=== PATIENT | female | born 1940 | race Caucasian/White ===

== ENCOUNTER 2016-12-04 11:12 | Inpatient (IN) ==
[2016-12-04 12:03] LABS: Basophils # 0.1 K/mcL (0.0-0.2); Basophils % 0.4 %; Eosinophils # 0.5 K/mcL (0.0-0.6); Eosinophils % 3.8 %; Hematocrit 34.2 % (35.3-44.9); Hemoglobin 10.3 g/dL (11.5-15.4); Immature Granulocytes % 0.2 % (0-4); Lymphocytes # 1.4 K/mcL (0.6-4.6); Lymphocytes % 11.3 %; Mean Corpuscular HGB Conc 30.1 g/dL (31.6-35.5); Mean Corpuscular Hemoglobin 23.5 pg (28.0-33.3); Mean Corpuscular Volume 77.9 fL (83.0-100.0); Mean Platelet Volume 10.1 fL (9.4-12.4); Monocytes # 0.9 K/mcL (0.0-1.3); Monocytes % 7.1 %; Neutrophils # 9.5 K/mcL (1.6-8.9); Platelet Count 306 K/mcL (140-400); Red Blood Count 4.39 M/mcL (3.82-4.97); Red Cell Distribution Width 17.5 % (11.5-14.5); Segmented Neutrophils % 77.2 %
[2016-12-04 12:07] LABS: INR 1.3; Prothrombin Time 14.1 Seconds (9.4-12.1)
[2016-12-04 12:14] LABS: Albumin 2.7 g/dL (3.5-5.0); Albumin/Globulin Ratio 0.8 (1.1-2.2); Bilirubin,Total 0.5 mg/dL (0.2-1.2); Calcium 9.2 mg/dL (8.6-10.8); Globulin 3.5 g/dL (2.4-3.5); Total Protein 6.2 g/dL (6.0-8.3)
--- NOTE | 2016-12-04 12:23 | Emergency Department Note ---
Disposition Clinical Impression: Edema extremities, Elevated troponin CKD (chronic kidney disease) Qualifiers: Chronic kidney disease stage: stage 4 (severe) Qualified Code(s): N18.4 - Chronic kidney disease, stage 4 (severe) Hepatic cirrhosis Qualifiers: Hepatic cirrhosis type: unspecified hepatic cirrhosis Ascites presence: with ascites Qualified Code(s): K74.60 - Unspecified cirrhosis of liver Disposition: Admitted As Inpatient Condition: Critical General Adult HPI - General Chief complaint: ED Shortness of Breath/Dyspnea Stated complaint: Swelling, DEMETRIUS Time Seen by Provider: 12/04/16 11:17 Source: patient, family Limitations: no limitations Nursing Notes Reviewed: Yes Vital Signs Reviewed: Yes - History of Present Illness HPI Narrative: Mrs. Jeong, a 76 year old female, presents from home by KUB with chief complaint of dyspnea and generalized swelling. Onset 3 weeks ago and gradually progressive. Patient was previously at outside hospital 3 weeks ago where she was to be admitted however that has bilateral beds and never told he had no beds ; [facility]. Patient since followed up with her business system consultant which she was diagnosed with cirrhosis and ascites; paracentesis scheduled for next Friday. She then followed up with her cook pickled meat 2 days ago and was diagnosed to be chronic kidney disease stage IV; she was instructed to present from his office to the emergency department for admission for diuresis. She did not present to days ago and thus presents today. Patient lives with her niece who is bedside. Niece states the patient has been confused with visual hallucinations. Patient's niece also states patient was seen at outside hospital for the same problem approximately one year ago where she had a three- month stay. Patient has been noncompliant with her follow-up since. Hadoop Application Developer: Dr. Emigdio Lugo. Gastroenterology: Dr. Hernandez Biologist Aide: Dr. Roper Family physician: Dr. Juarez Patient denies any anticoagulation or antiplatelet therapy at this time. PMH: Chronic kidney disease stage IV, hypertension, diabetes type 2, CAD, vitamin D deficiency, hypercalcemia, hyperkalemia, hyper parathyroidism, hyperuricemia, hyperlipidemia, hypoalbuminemia, paroxysmal atrial fibrillation not currently anticoagulated, anxiety. Habits: Current every day [id number]-year history. Pain Scale: 0 - Related Data Home Medications Medication Instructions Recorded Confirmed Levothyroxine [Synthroid] 75 mcg PO 0630 10/26/15 12/04/16 Amiodarone [Cordarone] 200 mg PO DAILY 11/19/16 12/04/16 Digoxin [Lanoxin] 0.125 mg PO DAILY 11/19/16 12/04/16 HYDROcodone/Acet 5/325 mg [[place] 1 tab PO BID PRN 11/19/16 12/04/16 5-325 mg] Ropinirole [Requip] 1 mg PO HS 11/19/16 12/04/16 TraZODone 50 - 100 mg PO HS 11/19/16 12/04/16 Bumetanide 4 mg PO BID 12/04/16 12/04/16 Duloxetine [Cymbalta] 30 mg PO DAILY 12/04/16 12/04/16 Insulin Aspart Prot/Insuln Asp 50 unit SQ BID 12/04/16 12/04/16 [Novolog Mix 70-30 Flexpen Syrn] Previous Rx's Medication Instructions Recorded Folic Acid 1 mg PO DAILY 15 Days 10/10/15 Losartan [Cozaar] 50 mg PO DAILY tablet 10/10/15 Isosorbide MONOnitrate (24 HR) 60 mg PO DAILY tab.er.24h 10/30/15 [Imdur] Metoprolol XL (24 HR) Succ [Toprol 25 mg PO DAILY tab.er.24h 10/30/15 Xl] Aspirin 81 mg PO DAILY #30 tab.chew 12/16/16 LORazepam [Ativan] 0.5 mg PO QID PRN #30 tablet 12/16/16 Allergies Allergy/AdvReac Type Severity Reaction Status Date / Time azithromycin [From Zithromax] Allergy Rash Verified 11/19/16 17:29 furosemide [From Lasix] AdvReac Headache Verified 11/19/16 17:29 ketorolac [From Toradol] AdvReac Hypotension Verified 11/19/16 17:29 All systems ED: reviewed and negative except as stated. Constitutional: Reports: weakness. Denies: fever, chills ENT ED: Denies: congestion Cardiovascular: Reports: dyspnea on exertion, edema. Denies: chest pain, palpitations, syncope Respiratory: Reports: cough, wheezes. Denies: dyspnea, hemoptysis, stridor Gastrointestinal: Denies: abdominal pain, nausea, vomiting, diarrhea, constipation, hematemesis, melena, hematochezia Genitourinary: Denies: urgency, dysuria, frequency Musculoskeletal: Reports: back pain. Denies: neck pain Integumentary: Denies: rash Neurological: Reports: weakness. Denies: headache, numbness, paresthesias, confusion Endocrine: Reports: fatigue Hematological/Lymphatic: Denies: easy bleeding, easy bruising Past Medical History - Past Medical History Medical history: Reports: arthritis, asthma, atrial fibrillation, CHF, COPD, coronary artery disease, DVT, dementia, diabetes, GERD, hyperlipidemia, hypertension, myocardial infarction, peripheral artery disease, pulmonary embolus, renal disease, thyroid disease, TIA, venous stasis, other Surgical history: Reports: angioplasty/stent, cholecystectomy, hysterectomy, knee replacement, orthopedic, other, other Psychiatric history: Reports: anxiety, depression 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 She appears physically deconditioned. HEENT: No facial asymmetry. Head is normocephalic and atraumatic. Trachea midline. Cardiovascular: Heart regular rate and rhythm without clicks, rubs, gallops, or murmurs. No JVD. PMI nondisplaced. 3+ non-weeping painful pedal edema equal bilaterally. Respiratory: Symmetric chest rise with poor respiratory effort. Prolonged expiratory phase. Bilateral breath sounds have diffuse wheezing with scant bibasilar crackles. No rhonchi. Abdomen: Obese. Bowel sounds present normoactive x-4 quadrants. Abdomen is tense, distended, nontender. Unable to assess organomegaly secondary to patient 's body habitus. Psych: Patient's affect is appropriate for situation. Patient is oriented to self, situation, location however when asked if she lives alone she states she lives with her and quickly corrects herself stating that her . - General Limitations: no limitations General appearance: alert Course Course Narrative: Clinical concern for worsening renal function as well as worsening ascites causing dyspnea. Patient's EKG shows bradycardia. Given patient is on digoxin for rate control, will also get dig level. Patient is has history of hypothyroidism, will get TSH. Patient's troponin is slightly elevated however this is near her baseline in the setting of CKD. She is anemic however this is also her baseline. Cr is elevated above her historic baseline. Labwork otherwise unremarkable. There was question as to whether or not the patient is on a liver transplant list. Spoke with [facility] transfer center. They confirmed the patient is not on their records of having been on a liver transplant list. Spoke with the hospitalist, Dr. De La Rosa who agrees to accept the patient for acute exacerbation of CKD with generalized edema, hepatic cirrhosis with severe ascites, elevated troponin. Vital Signs Temperature 97.7 F 12/04/16 11:23 Pulse Rate 48 12/04/16 11:23 Respiratory Rate 20 12/04/16 11:23 Blood Pressure 177/72 12/04/16 11:23 O2 Sat by Pulse Oximetry 95 12/04/16 11:23 Temperature 98.2 F 12/17/16 07:39 Pulse Rate 53 12/17/16 07:39 Respiratory Rate 20 12/17/16 07:39 Blood Pressure 128/54 12/17/16 07:39 O2 Sat by Pulse Oximetry 97 12/17/16 07:39 Oxygen Delivery Oxygen Delivery Room Air Medical Decision Making - Medical Records Medical records reviewed: Yes I reviewed the patient's medical records. - Lab Data Result diagrams: 12/17/16 06:20 12/17/16 06:20 Lab Results 12/04/16 12/04/16 12/04/16 Range/Units 11:54 11:54 11:54 WBC 12.2 H (4.3-11.1) K/mcL RBC 4.39 (3.82-4.97) M/mcL Hgb 10.3 L (11.5-15.4) g/dL Hct 34.2 L (35.3-44.9) % MCV 77.9 L (83.0-100.0) fL MCH 23.5 L (28.0-33.3) pg MCHC 30.1 L (31.6-35.5) g/dL RDW 17.5 H (11.5-14.5) % Plt Count 306 (140-400) K/mcL MPV 10.1 (9.4-12.4) fL Immature Gran % 0.2 (0-4) % Seg Neutrophils % 77.2 % Lymphocytes % 11.3 % Monocytes % 7.1 % Eosinophils % 3.8 % Basophils % 0.4 % Neutrophils # 9.5 H (1.6-8.9) K/mcL Lymphocytes # 1.4 (0.6-4.6) K/mcL Monocytes # 0.9 (0.0-1.3) K/mcL Eosinophils # 0.5 (0.0-0.6) K/mcL Basophils # 0.1 (0.0-0.2) K/mcL PT (9.4-12.1) Seconds INR Sodium 139 (136-145) mEq/L Potassium 4.0 (3.5-4.5) mEq/L Chloride 103 (98-109) mEq/L Carbon Dioxide 27 (19-29) mEq/L BUN 37 H (7-20) mg/dL Creatinine 3.22 H (0.57-1.11) mg/dL Est GFR ( Amer) 17 L (> 60) Est GFR (Non-Af Amer) 14 L (> 60) BUN/Creatinine Ratio 11 (6-26) Glucose 99 (70-99) mg/dL POC Glucose (58-89) Est Mean Plasma Glucose mg/dl Hemoglobin A1c ( - 5.6) % Calculated Osmolality 297 (280-300) Calcium 9.2 (8.6-10.8) mg/dL Phosphorus (2.3-4.7) mg/dL Iron (50-170) mcg/dL % Saturation (15-50) % Transferrin (180-382) mg/dL Total Bilirubin 0.5 (0.2-1.2) mg/dL AST 26 (5-34) Units/L ALT 15 (0-55) Units/L Alkaline Phosphatase 111 (38-126) Units/L Ammonia (18-72) mcmol/L Troponin I 0.05 H* (0-0.03) ng/mL Prot Electrophor EER Serum Total Protein 6.2 (6.0-8.3) g/dL Total Protein (PEP) (6.00-8.30) g/dL Albumin 2.7 L (3.5-5.0) g/dL Albumin (PEP) (3.75-5.01) g/dL Globulin 3.5 (2.4-3.5) g/dL Albumin/Globulin Ratio 0.8 L (1.1-2.2) Vtvpn-8-Vwqhygrnc (0.19-0.46) g/dL Phbpa-4-Gttvpjcuk (0.48-1.05) g/dL Beta Globulins (0.48-1.10) g/dL Gamma Globulins (0.62-1.51) g/dL PEP Interpretation Lipase 20 (8-78) Units/L TSH 2.267 (0.350-4.840) mcIU/mL PTH Intact (8.5-72.5) pg/ml Serum Immunofix Reflex Urine Color (Yellow) Urine Clarity (Clear) Urine pH (5.0-8.0) pH Units Ur Specific [place] (1.010-1.025) Urine Protein (Neg-Trace) mg/dL Urine Glucose (UA) (Normal) mg/dL Urine Ketones (Negative) mg/dL Urine Blood (Negative) Urine Nitrite (Negative) Urine Bilirubin (Negative) Urine Urobilinogen (Normal) mg/dL Ur Leukocyte Esterase (Negative) Urine Microscopic RBC (0-3) per hpf Urine Microscopic WBC (0-3) per hpf Ur Squamous Epith Cells (None-Few) per lpf Urine Bacteria (None-Few) per hpf Hyaline Casts (None-Few) per lpf Ur Culture Indicated? (NO) Urine Creatinine mg/dL Protein/Creatinin Ratio (0-0.20) mg/mg Urine Total Protein (1-14) mg/dL Fl Pathologist Review Peritoneal Appearance (Clear) Peritoneal Volume mL Peritoneal pH (No Ref Range) pH Units Peritoneal RBC (0.000 - 0.002) M/mcL Periton Tot Nuc Cells (0-300) TNC/mcL Periton Neutrophils % Periton Band Neuts % Peritoneal Eosinophils % Peritoneal Basophils % Periton Lymphocytes % % Periton Monocytes % % Periton Other Cells % % Peritoneal Tot Protein (No Ref Range) g/dL Peritoneal Albumin (No Ref Range) g/dL Peritoneal LDH (No Ref Range) Units/L Peritoneal Glucose (No Ref Range) mg/dL Peritoneal Amylase (No Ref Range) Units/L Peritoneal Triglycerid (No Ref Range) mg/dL Digoxin 2.3 H (0.8-2.0) ng/mL IgG (768-1632) mg/dL IgA (68-408) mg/dL IgM (35-263) mg/dL MATT Screen (None Detected) Myeloperoxidase Ab (0-19) AU/mL Serine Protease 3 Ab (0-19) AU/mL Complement C3 (88-201) mg/dL Complement C4 (10-40) mg/dL Free [place] LC, Quant (0.33-1.94) mg/dL Free Lambda LC, Quant (0.57-2.63) mg/dL Free [place]/Lambda Ratio (0.26-1.65) Hepatitis A IgM Ab (Nonreactive) Hep Bs Antigen (Nonreactive) Hep B Core IgM Ab (Nonreactive) Hepatitis C Ab Screen (Nonreactive) 12/04/16 12/04/16 12/04/16 Range/Units 11:54 11:54 11:54 WBC (4.3-11.1) K/mcL RBC (3.82-4.97) M/mcL Hgb (11.5-15.4) g/dL Hct (35.3-44.9) % MCV (83.0-100.0) fL MCH (28.0-33.3) pg MCHC (31.6-35.5) g/dL RDW (11.5-14.5) % Plt Count (140-400) K/mcL MPV (9.4-12.4) fL Immature Gran % (0-4) % Seg Neutrophils % % Lymphocytes % % Monocytes % % Eosinophils % % Basophils % % Neutrophils # (1.6-8.9) K/mcL Lymphocytes # (0.6-4.6) K/mcL Monocytes # (0.0-1.3) K/mcL Eosinophils # (0.0-0.6) K/mcL Basophils # (0.0-0.2) K/mcL PT 14.1 H (9.4-12.1) Seconds INR 1.3 Sodium (136-145) mEq/L Potassium (3.5-4.5) mEq/L Chloride (98-109) mEq/L Carbon Dioxide (19-29) mEq/L BUN (7-20) mg/dL Creatinine (0.57-1.11) mg/dL Est GFR ( Amer) (> 60) Est GFR (Non-Af Amer) (> 60) BUN/Creatinine Ratio (6-26) Glucose (70-99) mg/dL POC Glucose (58-89) Est Mean Plasma Glucose 140 mg/dl Hemoglobin A1c 6.5 H ( - 5.6) % Calculated Osmolality (280-300) Calcium (8.6-10.8) mg/dL Phosphorus (2.3-4.7) mg/dL Iron (50-170) mcg/dL % Saturation (15-50) % Transferrin (180-382) mg/dL Total Bilirubin (0.2-1.2) mg/dL AST (5-34) Units/L ALT (0-55) Units/L Alkaline Phosphatase (38-126) Units/L Ammonia 30 (18-72) mcmol/L Troponin I (0-0.03) ng/mL Prot Electrophor EER Serum Total Protein (6.0-8.3) g/dL Total Protein (PEP) (6.00-8.30) g/dL Albumin (3.5-5.0) g/dL Albumin (PEP) (3.75-5.01) g/dL Globulin (2.4-3.5) g/dL Albumin/Globulin Ratio (1.1-2.2) Lzyaf-4-Flkeqpeti (0.19-0.46) g/dL Vlywu-9-Mxjotncph (0.48-1.05) g/dL Beta Globulins (0.48-1.10) g/dL Gamma Globulins (0.62-1.51) g/dL PEP Interpretation Lipase (8-78) Units/L TSH (0.350-4.840) mcIU/mL PTH Intact (8.5-72.5) pg/ml Serum Immunofix Reflex Urine Color (Yellow) Urine Clarity (Clear) Urine pH (5.0-8.0) pH Units Ur Specific [place] (1.010-1.025) Urine Protein (Neg-Trace) mg/dL Urine Glucose (UA) (Normal) mg/dL Urine Ketones (Negative) mg/dL Urine Blood (Negative) Urine Nitrite (Negative) Urine Bilirubin (Negative) Urine Urobilinogen (Normal) mg/dL Ur Leukocyte Esterase (Negative) Urine Microscopic RBC (0-3) per hpf Urine Microscopic WBC (0-3) per hpf Ur Squamous Epith Cells (None-Few) per lpf Urine Bacteria (None-Few) per hpf Hyaline Casts (None-Few) per lpf Ur Culture Indicated? (NO) Urine Creatinine mg/dL Protein/Creatinin Ratio (0-0.20) mg/mg Urine Total Protein (1-14) mg/dL Fl Pathologist Review Peritoneal Appearance (Clear) Peritoneal Volume mL Peritoneal pH (No Ref Range) pH Units Peritoneal RBC (0.000 - 0.002) M/mcL Periton Tot Nuc Cells (0-300) TNC/mcL Periton Neutrophils % Periton Band Neuts % Peritoneal Eosinophils % Peritoneal Basophils % Periton Lymphocytes % % Periton Monocytes % % Periton Other Cells % % Peritoneal Tot Protein (No Ref Range) g/dL Peritoneal Albumin (No Ref Range) g/dL Peritoneal LDH (No Ref Range) Units/L Peritoneal Glucose (No Ref Range) mg/dL Peritoneal Amylase (No Ref Range) Units/L Peritoneal Triglycerid (No Ref Range) mg/dL Digoxin (0.8-2.0) ng/mL IgG (768-1632) mg/dL IgA (68-408) mg/dL IgM (35-263) mg/dL MATT Screen (None Detected) Myeloperoxidase Ab (0-19) AU/mL Serine Protease 3 Ab (0-19) AU/mL Complement C3 (88-201) mg/dL Complement C4 (10-40) mg/dL Free [place] LC, Quant (0.33-1.94) mg/dL Free Lambda LC, Quant (0.57-2.63) mg/dL Free [place]/Lambda Ratio (0.26-1.65) Hepatitis A IgM Ab (Nonreactive) Hep Bs Antigen (Nonreactive) Hep B Core IgM Ab (Nonreactive) Hepatitis C Ab Screen (Nonreactive) 12/04/16 12/04/16 12/04/16 Range/Units 12:49 18:47 21:42 WBC (4.3-11.1) K/mcL RBC (3.82-4.97) M/mcL Hgb (11.5-15.4) g/dL Hct (35.3-44.9) % MCV (83.0-100.0) fL MCH (28.0-33.3) pg MCHC (31.6-35.5) g/dL RDW (11.5-14.5) % Plt Count (140-400) K/mcL MPV (9.4-12.4) fL Immature Gran % (0-4) % Seg Neutrophils % % Lymphocytes % % Monocytes % % Eosinophils % % Basophils % % Neutrophils # (1.6-8.9) K/mcL Lymphocytes # (0.6-4.6) K/mcL Monocytes # (0.0-1.3) K/mcL Eosinophils # (0.0-0.6) K/mcL Basophils # (0.0-0.2) K/mcL PT (9.4-12.1) Seconds INR Sodium (136-145) mEq/L Potassium (3.5-4.5) mEq/L Chloride (98-109) mEq/L Carbon Dioxide (19-29) mEq/L BUN (7-20) mg/dL Creatinine (0.57-1.11) mg/dL Est GFR ( Amer) (> 60) Est GFR (Non-Af Amer) (> 60) BUN/Creatinine Ratio (6-26) Glucose (70-99) mg/dL POC Glucose 209 H (58-89) Est Mean Plasma Glucose mg/dl Hemoglobin A1c ( - 5.6) % Calculated Osmolality (280-300) Calcium (8.6-10.8) mg/dL Phosphorus (2.3-4.7) mg/dL Iron (50-170) mcg/dL % Saturation (15-50) % Transferrin (180-382) mg/dL Total Bilirubin (0.2-1.2) mg/dL AST (5-34) Units/L ALT (0-55) Units/L Alkaline Phosphatase (38-126) Units/L Ammonia (18-72) mcmol/L Troponin I 0.04 H* (0-0.03) ng/mL Prot Electrophor EER Serum Total Protein (6.0-8.3) g/dL Total Protein (PEP) (6.00-8.30) g/dL Albumin (3.5-5.0) g/dL Albumin (PEP) (3.75-5.01) g/dL Globulin (2.4-3.5) g/dL Albumin/Globulin Ratio (1.1-2.2) Rccso-2-Gztpjeqmk (0.19-0.46) g/dL Pbgwu-3-Ixpujalvs (0.48-1.05) g/dL Beta Globulins (0.48-1.10) g/dL Gamma Globulins (0.62-1.51) g/dL PEP Interpretation Lipase (8-78) Units/L TSH (0.350-4.840) mcIU/mL PTH Intact (8.5-72.5) pg/ml Serum Immunofix Reflex Urine Color Yellow (Yellow) Urine Clarity Cloudy A (Clear) Urine pH 6.0 (5.0-8.0) pH Units Ur Specific [place] 1.012 (1.010-1.025) Urine Protein 100 H (Neg-Trace) mg/dL Urine Glucose (UA) Normal (Normal) mg/dL Urine Ketones Negative (Negative) mg/dL Urine Blood Negative (Negative) Urine Nitrite Negative (Negative) Urine Bilirubin Negative (Negative) Urine Urobilinogen Normal (Normal) mg/dL Ur Leukocyte Esterase Negative (Negative) Urine Microscopic RBC 0-3 (0-3) per hpf Urine Microscopic WBC 0-3 (0-3) per hpf Ur Squamous Epith Cells Many H (None-Few) per lpf Urine Bacteria Few (None-Few) per hpf Hyaline Casts None Seen (None-Few) per lpf Ur Culture Indicated? NO (NO) Urine Creatinine mg/dL Protein/Creatinin Ratio (0-0.20) mg/mg Urine Total Protein (1-14) mg/dL Fl Pathologist Review Peritoneal Appearance (Clear) Peritoneal Volume mL Peritoneal pH (No Ref Range) pH Units Peritoneal RBC (0.000 - 0.002) M/mcL Periton Tot Nuc Cells (0-300) TNC/mcL Periton Neutrophils % Periton Band Neuts % Peritoneal Eosinophils % Peritoneal Basophils % Periton Lymphocytes % % Periton Monocytes % % Periton Other Cells % % Peritoneal Tot Protein (No Ref Range) g/dL Peritoneal Albumin (No Ref Range) g/dL Peritoneal LDH (No Ref Range) Units/L Peritoneal Glucose (No Ref Range) mg/dL Peritoneal Amylase (No Ref Range) Units/L Peritoneal Triglycerid (No Ref Range) mg/dL Digoxin (0.8-2.0) ng/mL IgG (768-1632) mg/dL IgA (68-408) mg/dL IgM (35-263) mg/dL MATT Screen (None Detected) Myeloperoxidase Ab (0-19) AU/mL Serine Protease 3 Ab (0-19) AU/mL Complement C3 (88-201) mg/dL Complement C4 (10-40) mg/dL Free [place] LC, Quant (0.33-1.94) mg/dL Free Lambda LC, Quant (0.57-2.63) mg/dL Free [place]/Lambda Ratio (0.26-1.65) Hepatitis A IgM Ab (Nonreactive) Hep Bs Antigen (Nonreactive) Hep B Core IgM Ab (Nonreactive) Hepatitis C Ab Screen (Nonreactive) 12/04/16 12/05/16 12/05/16 Range/Units 23:11 05:49 05:49 WBC 10.8 (4.3-11.1) K/mcL RBC 4.16 (3.82-4.97) M/mcL Hgb 9.6 L (11.5-15.4) g/dL Hct 32.1 L (35.3-44.9) % MCV 77.2 L (83.0-100.0) fL MCH 23.1 L (28.0-33.3) pg MCHC 29.9 L (31.6-35.5) g/dL RDW 17.5 H (11.5-14.5) % Plt Count 327 (140-400) K/mcL MPV 11.1 (9.4-12.4) fL Immature Gran % 0.4 (0-4) % Seg Neutrophils % 73.3 % Lymphocytes % 13.4 % Monocytes % 8.2 % Eosinophils % 4.3 % Basophils % 0.4 % Neutrophils # 7.9 (1.6-8.9) K/mcL Lymphocytes # 1.4 (0.6-4.6) K/mcL Monocytes # 0.9 (0.0-1.3) K/mcL Eosinophils # 0.5 (0.0-0.6) K/mcL Basophils # 0.0 (0.0-0.2) K/mcL PT (9.4-12.1) Seconds INR Sodium 139 (136-145) mEq/L Potassium 4.5 (3.5-4.5) mEq/L Chloride 104 (98-109) mEq/L Carbon Dioxide 26 (19-29) mEq/L BUN 37 H (7-20) mg/dL Creatinine 2.97 H (0.57-1.11) mg/dL Est GFR ( Amer) 19 L (> 60) Est GFR (Non-Af Amer) 15 L (> 60) BUN/Creatinine Ratio 12 (6-26) Glucose 127 H (70-99) mg/dL POC Glucose (58-89) Est Mean Plasma Glucose mg/dl Hemoglobin A1c ( - 5.6) % Calculated Osmolality 298 (280-300) Calcium 8.8 (8.6-10.8) mg/dL Phosphorus (2.3-4.7) mg/dL Iron (50-170) mcg/dL % Saturation (15-50) % Transferrin (180-382) mg/dL Total Bilirubin (0.2-1.2) mg/dL AST (5-34) Units/L ALT (0-55) Units/L Alkaline Phosphatase (38-126) Units/L Ammonia (18-72) mcmol/L Troponin I 0.04 H* (0-0.03) ng/mL Prot Electrophor EER Serum Total Protein (6.0-8.3) g/dL Total Protein (PEP) (6.00-8.30) g/dL Albumin (3.5-5.0) g/dL Albumin (PEP) (3.75-5.01) g/dL Globulin (2.4-3.5) g/dL Albumin/Globulin Ratio (1.1-2.2) Wdfnl-6-Xpcbgjvkr (0.19-0.46) g/dL Zzunh-3-Eccgeiwfw (0.48-1.05) g/dL Beta Globulins (0.48-1.10) g/dL Gamma Globulins (0.62-1.51) g/dL PEP Interpretation Lipase (8-78) Units/L TSH (0.350-4.840) mcIU/mL PTH Intact (8.5-72.5) pg/ml Serum Immunofix Reflex Urine Color (Yellow) Urine Clarity (Clear) Urine pH (5.0-8.0) pH Units Ur Specific [place] (1.010-1.025) Urine Protein (Neg-Trace) mg/dL Urine Glucose (UA) (Normal) mg/dL Urine Ketones (Negative) mg/dL Urine Blood (Negative) Urine Nitrite (Negative) Urine Bilirubin (Negative) Urine Urobilinogen (Normal) mg/dL Ur Leukocyte Esterase (Negative) Urine Microscopic RBC (0-3) per hpf Urine Microscopic WBC (0-3) per hpf Ur Squamous Epith Cells (None-Few) per lpf Urine Bacteria (None-Few) per hpf Hyaline Casts (None-Few) per lpf Ur Culture Indicated? (NO) Urine Creatinine mg/dL Protein/Creatinin Ratio (0-0.20) mg/mg Urine Total Protein (1-14) mg/dL Fl Pathologist Review Peritoneal Appearance (Clear) Peritoneal Volume mL Peritoneal pH (No Ref Range) pH Units Peritoneal RBC (0.000 - 0.002) M/mcL Periton Tot Nuc Cells (0-300) TNC/mcL Periton Neutrophils % Periton Band Neuts % Peritoneal Eosinophils % Peritoneal Basophils % Periton Lymphocytes % % Periton Monocytes % % Periton Other Cells % % Peritoneal Tot Protein (No Ref Range) g/dL Peritoneal Albumin (No Ref Range) g/dL Peritoneal LDH (No Ref Range) Units/L Peritoneal Glucose (No Ref Range) mg/dL Peritoneal Amylase (No Ref Range) Units/L Peritoneal Triglycerid (No Ref Range) mg/dL Digoxin (0.8-2.0) ng/mL IgG (768-1632) mg/dL IgA (68-408) mg/dL IgM (35-263) mg/dL MATT Screen (None Detected) Myeloperoxidase Ab (0-19) AU/mL Serine Protease 3 Ab (0-19) AU/mL Complement C3 (88-201) mg/dL Complement C4 (10-40) mg/dL Free [place] LC, Quant (0.33-1.94) mg/dL Free Lambda LC, Quant (0.57-2.63) mg/dL Free [place]/Lambda Ratio (0.26-1.65) Hepatitis A IgM Ab (Nonreactive) Hep Bs Antigen (Nonreactive) Hep B Core IgM Ab (Nonreactive) Hepatitis C Ab Screen (Nonreactive) 12/05/16 12/05/16 12/05/16 Range/Units 07:30 11:47 12:45 WBC (4.3-11.1) K/mcL RBC (3.82-4.97) M/mcL Hgb (11.5-15.4) g/dL Hct (35.3-44.9) % MCV (83.0-100.0) fL MCH (28.0-33.3) pg MCHC (31.6-35.5) g/dL RDW (11.5-14.5) % Plt Count (140-400) K/mcL MPV (9.4-12.4) fL Immature Gran % (0-4) % Seg Neutrophils % % Lymphocytes % % Monocytes % % Eosinophils % % Basophils % % Neutrophils # (1.6-8.9) K/mcL Lymphocytes # (0.6-4.6) K/mcL Monocytes # (0.0-1.3) K/mcL Eosinophils # (0.0-0.6) K/mcL Basophils # (0.0-0.2) K/mcL PT (9.4-12.1) Seconds INR Sodium 136 (136-145) mEq/L Potassium 4.6 H (3.5-4.5) mEq/L Chloride 103 (98-109) mEq/L Carbon Dioxide 27 (19-29) mEq/L BUN 38 H (7-20) mg/dL Creatinine 3.05 H (0.57-1.11) mg/dL Est GFR ( Amer) 18 L (> 60) Est GFR (Non-Af Amer) 15 L (> 60) BUN/Creatinine Ratio 12 (6-26) Glucose 195 H (70-99) mg/dL POC Glucose 129 H 188 H (58-89) Est Mean Plasma Glucose mg/dl Hemoglobin A1c ( - 5.6) % Calculated Osmolality 296 (280-300) Calcium 8.7 (8.6-10.8) mg/dL Phosphorus 3.0 (2.3-4.7) mg/dL Iron (50-170) mcg/dL % Saturation (15-50) % Transferrin (180-382) mg/dL Total Bilirubin (0.2-1.2) mg/dL AST (5-34) Units/L ALT (0-55) Units/L Alkaline Phosphatase (38-126) Units/L Ammonia (18-72) mcmol/L Troponin I (0-0.03) ng/mL Prot Electrophor EER Serum Total Protein (6.0-8.3) g/dL Total Protein (PEP) (6.00-8.30) g/dL Albumin 2.4 L (3.5-5.0) g/dL Albumin (PEP) (3.75-5.01) g/dL Globulin (2.4-3.5) g/dL Albumin/Globulin Ratio (1.1-2.2) [id number]-9-[id number] (0.19-0.46) g/dL Wltnc-3-Wbeivaffh (0.48-1.05) g/dL Beta Globulins (0.48-1.10) g/dL Gamma Globulins (0.62-1.51) g/dL PEP Interpretation Lipase (8-78) Units/L TSH (0.350-4.840) mcIU/mL PTH Intact (8.5-72.5) pg/ml Serum Immunofix Reflex Urine Color (Yellow) Urine Clarity (Clear) Urine pH (5.0-8.0) pH Units Ur Specific [place] (1.010-1.025) Urine Protein (Neg-Trace) mg/dL Urine Glucose (UA) (Normal) mg/dL Urine Ketones (Negative) mg/dL Urine Blood (Negative) Urine Nitrite (Negative) Urine Bilirubin (Negative) Urine Urobilinogen (Normal) mg/dL Ur Leukocyte Esterase (Negative) Urine Microscopic RBC (0-3) per hpf Urine Microscopic WBC (0-3) per hpf Ur Squamous Epith Cells (None-Few) per lpf Urine Bacteria (None-Few) per hpf Hyaline Casts (None-Few) per lpf Ur Culture Indicated? (NO) Urine Creatinine mg/dL Protein/Creatinin Ratio (0-0.20) mg/mg Urine Total Protein (1-14) mg/dL Fl Pathologist Review Peritoneal Appearance (Clear) Peritoneal Volume mL Peritoneal pH (No Ref Range) pH Units Peritoneal RBC (0.000 - 0.002) M/mcL Periton Tot Nuc Cells (0-300) TNC/mcL Periton Neutrophils % Periton Band Neuts % Peritoneal Eosinophils % Peritoneal Basophils % Periton Lymphocytes % % Periton Monocytes % % Periton Other Cells % % Peritoneal Tot Protein (No Ref Range) g/dL Peritoneal Albumin (No Ref Range) g/dL Peritoneal LDH (No Ref Range) Units/L Peritoneal Glucose (No Ref Range) mg/dL Peritoneal Amylase (No Ref Range) Units/L Peritoneal Triglycerid (No Ref Range) mg/dL Digoxin (0.8-2.0) ng/mL IgG (768-1632) mg/dL IgA (68-408) mg/dL IgM (35-263) mg/dL MATT Screen (None Detected) Myeloperoxidase Ab (0-19) AU/mL Serine Protease 3 Ab (0-19) AU/mL Complement C3 (88-201) mg/dL Complement C4 (10-40) mg/dL Free [place] LC, Quant (0.33-1.94) mg/dL Free [place]ambda LC, Quant (0.57-2.63) mg/dL Free [place]/Lambda Ratio (0.26-1.65) Hepatitis A IgM Ab (Nonreactive) Hep Bs Antigen (Nonreactive) Hep B Core IgM Ab (Nonreactive) Hepatitis C Ab Screen (Nonreactive) 12/05/16 12/05/16 12/05/16 Range/Units 12:45 12:45 12:45 WBC (4.3-11.1) K/mcL RBC (3.82-4.97) M/mcL Hgb (11.5-15.4) g/dL Hct (35.3-44.9) % MCV (83.0-100.0) fL MCH (28.0-33.3) pg MCHC (31.6-35.5) g/dL RDW (11.5-14.5) % Plt Count (140-400) K/mcL MPV (9.4-12.4) fL Immature Gran % (0-4) % Seg Neutrophils % % Lymphocytes % % Monocytes % % Eosinophils % % Basophils % % Neutrophils # (1.6-8.9) K/mcL Lymphocytes # (0.6-4.6) K/mcL Monocytes # (0.0-1.3) K/mcL Eosinophils # (0.0-0.6) K/mcL Basophils # (0.0-0.2) K/mcL PT (9.4-12.1) Seconds INR Sodium (136-145) mEq/L Potassium (3.5-4.5) mEq/L Chloride (98-109) mEq/L Carbon Dioxide (19-29) mEq/L BUN (7-20) mg/dL Creatinine (0.57-1.11) mg/dL Est GFR ( Amer) (> 60) Est GFR (Non-Af Amer) (> 60) BUN/Creatinine Ratio (6-26) Glucose (70-99) mg/dL POC Glucose (58-89) Est Mean Plasma Glucose mg/dl Hemoglobin A1c ( - 5.6) % Calculated Osmolality (280-300) Calcium (8.6-10.8) mg/dL Phosphorus (2.3-4.7) mg/dL Iron (50-170) mcg/dL % Saturation (15-50) % Transferrin (180-382) mg/dL Total Bilirubin (0.2-1.2) mg/dL AST (5-34) Units/L ALT (0-55) Units/L Alkaline Phosphatase (38-126) Units/L Ammonia (18-72) mcmol/L Troponin I (0-0.03) ng/mL Prot Electrophor EER SEE NOTE Serum Total Protein (6.0-8.3) g/dL Total Protein (PEP) 6.40 (6.00-8.30) g/dL Albumin (3.5-5.0) g/dL Albumin (PEP) 3.17 L (3.75-5.01) g/dL Globulin (2.4-3.5) g/dL Albumin/Globulin Ratio (1.1-2.2) Eapdh-5-Zcmekcszb 0.47 H (0.19-0.46) g/dL Elmyu-1-Voyyhomrx 1.04 (0.48-1.05) g/dL Beta Globulins 0.77 (0.48-1.10) g/dL Gamma Globulins 0.96 (0.62-1.51) g/dL PEP Interpretation SEE NOTE Lipase (8-78) Units/L TSH (0.350-4.840) mcIU/mL PTH Intact (8.5-72.5) pg/ml Serum Immunofix Reflex CARLEE Done Urine Color (Yellow) Urine Clarity (Clear) Urine pH (5.0-8.0) pH Units Ur Specific [place] (1.010-1.025) Urine Protein (Neg-Trace) mg/dL Urine Glucose (UA) (Normal) mg/dL Urine Ketones (Negative) mg/dL Urine Blood (Negative) Urine Nitrite (Negative) Urine Bilirubin (Negative) Urine Urobilinogen (Normal) mg/dL Ur Leukocyte Esterase (Negative) Urine Microscopic RBC (0-3) per hpf Urine Microscopic WBC (0-3) per hpf Ur Squamous Epith Cells (None-Few) per lpf Urine Bacteria (None-Few) per hpf Hyaline Casts (None-Few) per lpf Ur Culture Indicated? (NO) Urine Creatinine mg/dL Protein/Creatinin Ratio (0-0.20) mg/mg Urine Total Protein (1-14) mg/dL Fl Pathologist Review Peritoneal Appearance (Clear) Peritoneal Volume mL Peritoneal pH (No Ref Range) pH Units Peritoneal RBC (0.000 - 0.002) M/mcL Periton Tot Nuc Cells (0-300) TNC/mcL Periton Neutrophils % Periton Band Neuts % Peritoneal Eosinophils % Peritoneal Basophils % Periton Lymphocytes % % Periton Monocytes % % Periton Other Cells % % Peritoneal Tot Protein (No Ref Range) g/dL Peritoneal Albumin (No Ref Range) g/dL Peritoneal LDH (No Ref Range) Units/L Peritoneal Glucose (No Ref Range) mg/dL Peritoneal Amylase (No Ref Range) Units/L Peritoneal Triglycerid (No Ref Range) mg/dL Digoxin (0.8-2.0) ng/mL IgG 947 (768-1632) mg/dL IgA 261 (68-408) mg/dL IgM 67 (35-263) mg/dL MATT Screen NONE DETECTED (None Detected) Myeloperoxidase Ab 0 (0-19) AU/mL Serine Protease 3 Ab 2 (0-19) AU/mL Complement C3 124 (88-201) mg/dL Complement C4 37 (10-40) mg/dL Free [place] LC, Quant (0.33-1.94) mg/dL Free Lambda LC, Quant (0.57-2.63) mg/dL Free [place]/Lambda Ratio (0.26-1.65) Hepatitis A IgM Ab (Nonreactive) Hep Bs Antigen (Nonreactive) Hep B Core IgM Ab (Nonreactive) Hepatitis C Ab Screen (Nonreactive) 12/05/16 12/05/16 12/05/16 Range/Units 12:45 12:45 12:45 WBC (4.3-11.1) K/mcL RBC (3.82-4.97) M/mcL Hgb (11.5-15.4) g/dL Hct (35.3-44.9) % MCV (83.0-100.0) fL MCH (28.0-33.3) pg MCHC (31.6-35.5) g/dL RDW (11.5-14.5) % Plt Count (140-400) K/mcL MPV (9.4-12.4) fL Immature Gran % (0-4) % Seg Neutrophils % % Lymphocytes % % Monocytes % % Eosinophils % % Basophils % % Neutrophils # (1.6-8.9) K/mcL Lymphocytes # (0.6-4.6) K/mcL Monocytes # (0.0-1.3) K/mcL Eosinophils # (0.0-0.6) K/mcL Basophils # (0.0-0.2) K/mcL PT (9.4-12.1) Seconds INR Sodium (136-145) mEq/L Potassium (3.5-4.5) mEq/L Chloride (98-109) mEq/L Carbon Dioxide (19-29) mEq/L BUN (7-20) mg/dL Creatinine (0.57-1.11) mg/dL Est GFR ( Amer) (> 60) Est GFR (Non-Af Amer) (> 60) BUN/Creatinine Ratio (6-26) Glucose (70-99) mg/dL POC Glucose (58-89) Est Mean Plasma Glucose mg/dl Hemoglobin A1c ( - 5.6) % Calculated Osmolality (280-300) Calcium (8.6-10.8) mg/dL Phosphorus (2.3-4.7) mg/dL Iron (50-170) mcg/dL % Saturation (15-50) % Transferrin (180-382) mg/dL Total Bilirubin (0.2-1.2) mg/dL AST (5-34) Units/L ALT (0-55) Units/L Alkaline Phosphatase (38-126) Units/L Ammonia (18-72) mcmol/L Troponin I (0-0.03) ng/mL Prot Electrophor EER Serum Total Protein (6.0-8.3) g/dL Total Protein (PEP) (6.00-8.30) g/dL Albumin (3.5-5.0) g/dL Albumin (PEP) (3.75-5.01) g/dL Globulin (2.4-3.5) g/dL Albumin/Globulin Ratio (1.1-2.2) Ipqbm-1-Gllckahjt (0.19-0.46) g/dL Zztbr-1-Rsldnyhkp (0.48-1.05) g/dL Beta Globulins (0.48-1.10) g/dL Gamma Globulins (0.62-1.51) g/dL PEP Interpretation Lipase (8-78) Units/L TSH (0.350-4.840) mcIU/mL PTH Intact 365.6 H (8.5-72.5) pg/ml Serum Immunofix Reflex Urine Color (Yellow) Urine Clarity (Clear) Urine pH (5.0-8.0) pH Units Ur Specific [place] (1.010-1.025) Urine Protein (Neg-Trace) mg/dL Urine Glucose (UA) (Normal) mg/dL Urine Ketones (Negative) mg/dL Urine Blood (Negative) Urine Nitrite (Negative) Urine Bilirubin (Negative) Urine Urobilinogen (Normal) mg/dL Ur Leukocyte Esterase (Negative) Urine Microscopic RBC (0-3) per hpf Urine Microscopic WBC (0-3) per hpf Ur Squamous Epith Cells (None-Few) per lpf Urine Bacteria (None-Few) per hpf Hyaline Casts (None-Few) per lpf Ur Culture Indicated? (NO) Urine Creatinine mg/dL Protein/Creatinin Ratio (0-0.20) mg/mg Urine Total Protein (1-14) mg/dL Fl Pathologist Review Peritoneal Appearance (Clear) Peritoneal Volume mL Peritoneal pH (No Ref Range) pH Units Peritoneal RBC (0.000 - 0.002) M/mcL Per[place] Tot Nuc Cells (0-300) TNC/mcL Periton Neutrophils % Periton Band Neuts % Peritoneal Eosinophils % Peritoneal Basophils % Periton Lymphocytes % % Periton Monocytes % % Periton Other Cells % % Peritoneal Tot Protein (No Ref Range) g/dL Peritoneal Albumin (No Ref Range) g/dL Peritoneal LDH (No Ref Range) Units/L Peritoneal Glucose (No Ref Range) mg/dL Peritoneal Amylase (No Ref Range) Units/L Peritoneal Triglycerid (No Ref Range) mg/dL Digoxin (0.8-2.0) ng/mL IgG (768-1632) mg/dL IgA (68-408) mg/dL IgM (35-263) mg/dL MATT Screen (None Detected) Myeloperoxidase Ab (0-19) AU/mL Serine Protease 3 Ab (0-19) AU/mL Complement C3 (88-201) mg/dL Complement C4 (10-40) mg/dL Free [place] LC, Quant 9.49 H (0.33-1.94) mg/dL Free [place] LC, Quant 7.86 H (0.57-2.63) mg/dL Free [place]/Lambda Ratio 1.21 (0.26-1.65) Hepatitis A IgM Ab Nonreactive (Nonreactive) Hep Bs Antigen Nonreactive (Nonreactive) Hep B Core IgM Ab Nonreactive (Nonreactive) Hepatitis C Ab Screen Nonreactive (Nonreactive) 12/05/16 12/05/16 12/05/16 Range/Units 12:45 12:45 15:47 WBC (4.3-11.1) K/mcL RBC (3.82-4.97) M/mcL Hgb (11.5-15.4) g/dL Hct (35.3-44.9) % MCV (83.0-100.0) fL MCH (28.0-33.3) pg MCHC (31.6-35.5) g/dL RDW (11.5-14.5) % Plt Count (140-400) K/mcL MPV (9.4-12.4) fL Immature Gran % (0-4) % Seg Neutrophils % % Lymphocytes % % Monocytes % % Eosinophils % % Basophils % % Neutrophils # (1.6-8.9) K/mcL Lymphocytes # (0.6-4.6) K/mcL Monocytes # (0.0-1.3) K/mcL Eosinophils # (0.0-0.6) K/mcL Basophils # (0.0-0.2) K/mcL PT (9.4-12.1) Seconds INR Sodium (136-145) mEq/L Potassium (3.5-4.5) mEq/L Chloride (98-109) mEq/L Carbon Dioxide (19-29) mEq/L BUN (7-20) mg/dL Creatinine (0.57-1.11) mg/dL Est GFR ( Amer) (> 60) Est GFR (Non-Af Amer) (> 60) BUN/Creatinine Ratio (6-26) Glucose (70-99) mg/dL POC Glucose 135 H (58-89) Est Mean Plasma Glucose mg/dl Hemoglobin A1c ( - 5.6) % Calculated Osmolality (280-300) Calcium (8.6-10.8) mg/dL Phosphorus 3.0 (2.3-4.7) mg/dL Iron 19 L (50-170) mcg/dL % Saturation 7 L (15-50) % Transferrin 193 (180-382) mg/dL Total Bilirubin (0.2-1.2) mg/dL AST (5-34) Units/L ALT (0-55) Units/L Alkaline Phosphatase (38-126) Units/L Ammonia (18-72) mcmol/L Troponin I (0-0.03) ng/mL Prot Electrophor EER Serum Total Protein (6.0-8.3) g/dL Total Protein (PEP) (6.00-8.30) g/dL Albumin (3.5-5.0) g/dL Albumin (PEP) (3.75-5.01) g/dL Globulin (2.4-3.5) g/dL Albumin/Globulin Ratio (1.1-2.2) Eddhr-9-Etwqlsmqy (0.19-0.46) g/dL Yknom-8-Uauyvfogg (0.48-1.05) g/dL Beta Globulins (0.48-1.10) g/dL Gamma Globulins (0.62-1.51) g/dL PEP Interpretation Lipase (8-78) Units/L TSH (0.350-4.840) mcIU/mL PTH Intact (8.5-72.5) pg/ml Serum Immunofix Reflex Urine Color (Yellow) Urine Clarity (Clear) Urine pH (5.0-8.0) pH Units Ur Specific [place] (1.010-1.025) Urine Protein (Neg-Trace) mg/dL Urine Glucose (UA) (Normal) mg/dL Urine Ketones (Negative) mg/dL Urine Blood (Negative) Urine Nitrite (Negative) Urine Bilirubin (Negative) Urine Urobilinogen (Normal) mg/dL Ur Leukocyte Esterase (Negative) Urine Microscopic RBC (0-3) per hpf Urine Microscopic WBC (0-3) per hpf Ur Squamous Epith Cells (None-Few) per lpf Urine Bacteria (None-Few) per hpf Hyaline Casts (None-Few) per lpf Ur Culture Indicated? (NO) Urine Creatinine mg/dL Protein/Creatinin Ratio (0-0.20) mg/mg Urine Total Protein (1-14) mg/dL Fl Pathologist Review Peritoneal Appearance (Clear) Peritoneal Volume mL Peritoneal pH (No Ref Range) pH Units Peritoneal RBC (0.000 - 0.002) M/mcL Per[place] Tot Nuc Cells (0-300) TNC/mcL Periton Neutrophils % Periton Band Neuts % Peritoneal Eosinophils % Peritoneal Basophils % Periton Lymphocytes % % Periton Monocytes % % Periton Other Cells % % Peritoneal Tot Protein (No Ref Range) g/dL Peritoneal Albumin (No Ref Range) g/dL Peritoneal LDH (No Ref Range) Units/L Peritoneal Glucose (No Ref Range) mg/dL Peritoneal Amylase (No Ref Range) Units/L Peritoneal Triglycerid (No Ref Range) mg/dL Digoxin (0.8-2.0) ng/mL IgG (768-1632) mg/dL IgA (68-408) mg/dL IgM (35-263) mg/dL MATT Screen (None Detected) Myeloperoxidase Ab (0-19) AU/mL Serine Protease 3 Ab (0-19) AU/mL Complement C3 (88-201) mg/dL Complement C4 (10-40) mg/dL Free [place] LC, Quant (0.33-1.94) mg/dL Free [place] LC, Quant (0.57-2.63) mg/dL Free [place]/Lambda Ratio (0.26-1.65) Hepatitis A IgM Ab (Nonreactive) Hep Bs Antigen (Nonreactive) Hep B Core IgM Ab (Nonreactive) Hepatitis C Ab Screen (Nonreactive) 12/05/16 12/05/16 12/05/16 Range/Units 16:30 16:30 18:00 WBC (4.3-11.1) K/mcL RBC (3.82-4.97) M/mcL Hgb (11.5-15.4) g/dL Hct (35.3-44.9) % MCV (83.0-100.0) fL MCH (28.0-33.3) pg MCHC (31.6-35.5) g/dL RDW (11.5-14.5) % Plt Count (140-400) K/mcL MPV (9.4-12.4) fL Immature Gran % (0-4) % Seg Neutrophils % % Lymphocytes % % Monocytes % % Eosinophils % % Basophils % % Neutrophils # (1.6-8.9) K/mcL Lymphocytes # (0.6-4.6) K/mcL Monocytes # (0.0-1.3) K/mcL Eosinophils # (0.0-0.6) K/mcL Basophils # (0.0-0.2) K/mcL PT (9.4-12.1) Seconds INR Sodium (136-145) mEq/L Potassium (3.5-4.5) mEq/L Chloride (98-109) mEq/L Carbon Dioxide (19-29) mEq/L BUN (7-20) mg/dL Creatinine (0.57-1.11) mg/dL Est GFR ( Amer) (> 60) Est GFR (Non-Af Amer) (> 60) BUN/Creatinine Ratio (6-26) Glucose (70-99) mg/dL POC Glucose (58-89) Est Mean Plasma Glucose mg/dl Hemoglobin A1c ( - 5.6) % Calculated Osmolality (280-300) Calcium (8.6-10.8) mg/dL Phosphorus (2.3-4.7) mg/dL Iron (50-170) mcg/dL % Saturation (15-50) % Transferrin (180-382) mg/dL Total Bilirubin (0.2-1.2) mg/dL AST (5-34) Units/L ALT (0-55) Units/L Alkaline Phosphatase (38-126) Units/L Ammonia (18-72) mcmol/L Troponin I (0-0.03) ng/mL Prot Electrophor EER Serum Total Protein (6.0-8.3) g/dL Total Protein (PEP) (6.00-8.30) g/dL Albumin (3.5-5.0) g/dL Albumin (PEP) (3.75-5.01) g/dL Globulin (2.4-3.5) g/dL Albumin/Globulin Ratio (1.1-2.2) Xioup-4-Xczjlpald (0.19-0.46) g/dL Lilyz-9-Buszcyoaa (0.48-1.05) g/dL Beta Globulins (0.48-1.10) g/dL Gamma Globulins (0.62-1.51) g/dL PEP Interpretation Lipase (8-78) Units/L TSH (0.350-4.840) mcIU/mL PTH Intact (8.5-72.5) pg/ml Serum Immunofix Reflex Urine Color (Yellow) Urine Clarity (Clear) Urine pH (5.0-8.0) pH Units Ur Specific [place] (1.010-1.025) Urine Protein (Neg-Trace) mg/dL Urine Glucose (UA) (Normal) mg/dL Urine Ketones (Negative) mg/dL Urine Blood (Negative) Urine Nitrite (Negative) Urine Bilirubin (Negative) Urine Urobilinogen (Normal) mg/dL Ur Leukocyte Esterase (Negative) Urine Microscopic RBC (0-3) per hpf Urine Microscopic WBC (0-3) per hpf Ur Squamous Epith Cells (None-Few) per lpf Urine Bacteria (None-Few) per hpf Hyaline Casts (None-Few) per lpf Ur Culture Indicated? (NO) Urine Creatinine 108 mg/dL Protein/Creatinin Ratio 1.69 H (0-0.20) mg/mg Urine Total Protein 183 H (1-14) mg/dL Fl Pathologist Review See below Peritoneal Appearance CLEAR (Clear) Peritoneal Volume 7000.0 mL Peritoneal pH 7.57 (No Ref Range) pH Units Peritoneal RBC < 0.002 (0.000 - 0.002) M/mcL Periton Tot Nuc Cells 164 (0-300) TNC/mcL Periton Neutrophils 26.0 % Periton Band Neuts 0 % Peritoneal Eosinophils 0 % Peritoneal Basophils 0 % Periton Lymphocytes % 48.0 % Periton Monocytes % 26.0 % Periton Other Cells % 0 % Peritoneal Tot Protein 2.0 (No Ref Range) g/dL Peritoneal Albumin 1.1 (No Ref Range) g/dL Peritoneal LDH 47 (No Ref Range) Units/L Peritoneal Glucose 178 (No Ref Range) mg/dL Peritoneal Amylase 5 (No Ref Range) Units/L Peritoneal Triglycerid 39 (No Ref Range) mg/dL Digoxin (0.8-2.0) ng/mL IgG (768-1632) mg/dL IgA (68-408) mg/dL IgM (35-263) mg/dL MATT Screen (None Detected) Myeloperoxidase Ab (0-19) AU/mL Serine Protease 3 Ab (0-19) AU/mL Complement C3 (88-201) mg/dL Complement C4 (10-40) mg/dL Free [place] LC, Quant (0.33-1.94) mg/dL Free [place] LC, Quant (0.57-2.63) mg/dL Free [place]/Lambda Ratio (0.26-1.65) Hepatitis A IgM Ab (Nonreactive) Hep Bs Antigen (Nonreactive) Hep B Core IgM Ab (Nonreactive) Hepatitis C Ab Screen (Nonreactive) 12/05/16 12/06/16 12/06/16 Range/Units 20:51 05:29 05:29 WBC (4.3-11.1) K/mcL RBC (3.82-4.97) M/mcL Hgb (11.5-15.4) g/dL Hct (35.3-44.9) % MCV (83.0-100.0) fL MCH (28.0-33.3) pg MCHC (31.6-35.5) g/dL RDW (11.5-14.5) % Plt Count (140-400) K/mcL MPV (9.4-12.4) fL Immature Gran % (0-4) % Seg Neutrophils % % Lymphocytes % % Monocytes % % Eosinophils % % Basophils % % Neutrophils # (1.6-8.9) K/mcL Lymphocytes # (0.6-4.6) K/mcL Monocytes # (0.0-1.3) K/mcL Eosinophils # (0.0-0.6) K/mcL Basophils # (0.0-0.2) K/mcL PT (9.4-12.1) Seconds INR Sodium 137 (136-145) mEq/L Potassium 4.8 H (3.5-4.5) mEq/L Chloride 103 (98-109) mEq/L Carbon Dioxide 25 (19-29) mEq/L BUN 39 H (7-20) mg/dL Creatinine 3.19 H (0.57-1.11) mg/dL Est GFR ( Amer) 17 L (> 60) Est GFR (Non-Af Amer) 14 L (> 60) BUN/Creatinine Ratio 12 (6-26) Glucose 115 H (70-99) mg/dL POC Glucose 182 H (58-89) Est Mean Plasma Glucose mg/dl Hemoglobin A1c ( - 5.6) % Calculated Osmolality 294 (280-300) Calcium 8.7 (8.6-10.8) mg/dL Phosphorus (2.3-4.7) mg/dL Iron (50-170) mcg/dL % Saturation (15-50) % Transferrin (180-382) mg/dL Total Bilirubin (0.2-1.2) mg/dL AST (5-34) Units/L ALT (0-55) Units/L Alkaline Phosphatase (38-126) Units/L Ammonia (18-72) mcmol/L Troponin I (0-0.03) ng/mL Prot Electrophor EER Serum Total Protein (6.0-8.3) g/dL Total Protein (PEP) (6.00-8.30) g/dL Albumin (3.5-5.0) g/dL Albumin (PEP) (3.75-5.01) g/dL Globulin (2.4-3.5) g/dL Albumin/Globulin Ratio (1.1-2.2) Cgxzx-6-Ljqwyuzzn (0.19-0.46) g/dL Whajq-1-Mufbhbvql (0.48-1.05) g/dL Beta Globulins (0.48-1.10) g/dL Gamma Globulins (0.62-1.51) g/dL PEP Interpretation Lipase (8-78) Units/L TSH (0.350-4.840) mcIU/mL PTH Intact (8.5-72.5) pg/ml Serum Immunofix Reflex Urine Color (Yellow) Urine Clarity (Clear) Urine pH (5.0-8.0) pH Units Ur Specific [place] (1.010-1.025) Urine Protein (Neg-Trace) mg/dL Urine Glucose (UA) (Normal) mg/dL Urine Ketones (Negative) mg/dL Urine Blood (Negative) Urine Nitrite (Negative) Urine Bilirubin (Negative) Urine Urobilinogen (Normal) mg/dL Ur Leukocyte Esterase (Negative) Urine Microscopic RBC (0-3) per hpf Urine Microscopic WBC (0-3) per hpf Ur Squamous Epith Cells (None-Few) per lpf Urine Bacteria (None-Few) per hpf Hyaline Casts (None-Few) per lpf Ur Culture Indicated? (NO) Urine Creatinine mg/dL Protein/Creatinin Ratio (0-0.20) mg/mg Urine Total Protein (1-14) mg/dL Fl Pathologist Review Peritoneal Appearance (Clear) Peritoneal Volume mL Peritoneal pH (No Ref Range) pH Units Peritoneal RBC (0.000 - 0.002) M/mcL Periton Tot Nuc Cells (0-300) TNC/mcL Periton Neutrophils % Periton Band Neuts % Peritoneal Eosinophils % Peritoneal Basophils % Periton Lymphocytes % % Periton Monocytes % % Periton Other Cells % % Peritoneal Tot Protein (No Ref Range) g/dL Peritoneal Albumin (No Ref Range) g/dL Peritoneal LDH (No Ref Range) Units/L Peritoneal Glucose (No Ref Range) mg/dL Peritoneal Amylase (No Ref Range) Units/L Peritoneal Triglycerid (No Ref Range) mg/dL Digoxin 3.2 H* (0.8-2.0) ng/mL IgG (768-1632) mg/dL IgA (68-408) mg/dL IgM (35-263) mg/dL MATT Screen (None Detected) Myeloperoxidase Ab (0-19) AU/mL Serine Protease 3 Ab (0-19) AU/mL Complement C3 (88-201) mg/dL Complement C4 (10-40) mg/dL Free [place] LC, Quant (0.33-1.94) mg/dL Free Lambda LC, Quant (0.57-2.63) mg/dL Free [place]/Lambda Ratio (0.26-1.65) Hepatitis A IgM Ab (Nonreactive) Hep Bs Antigen (Nonreactive) Hep B Core IgM Ab (Nonreactive) Hepatitis C Ab Screen (Nonreactive) 12/06/16 12/06/16 12/06/16 Range/Units 06:35 11:00 15:48 WBC (4.3-11.1) K/mcL RBC (3.82-4.97) M/mcL Hgb (11.5-15.4) g/dL Hct (35.3-44.9) % MCV (83.0-100.0) fL MCH (28.0-33.3) pg MCHC (31.6-35.5) g/dL RDW (11.5-14.5) % Plt Count (140-400) K/mcL MPV (9.4-12.4) fL Immature Gran % (0-4) % Seg Neutrophils % % Lymphocytes % % Monocytes % % Eosinophils % % Basophils % % Neutrophils # (1.6-8.9) K/mcL Lymphocytes # (0.6-4.6) K/mcL Monocytes # (0.0-1.3) K/mcL Eosinophils # (0.0-0.6) K/mcL Basophils # (0.0-0.2) K/mcL PT (9.4-12.1) Seconds INR Sodium (136-145) mEq/L Potassium (3.5-4.5) mEq/L Chloride (98-109) mEq/L Carbon Dioxide (19-29) mEq/L BUN (7-20) mg/dL Creatinine (0.57-1.11) mg/dL Est GFR ( Amer) (> 60) Est GFR (Non-Af Amer) (> 60) BUN/Creatinine Ratio (6-26) Glucose (70-99) mg/dL POC Glucose 150 H 195 H 169 H (58-89) Est Mean Plasma Glucose mg/dl Hemoglobin A1c ( - 5.6) % Calculated Osmolality (280-300) Calcium (8.6-10.8) mg/dL Phosphorus (2.3-4.7) mg/dL Iron (50-170) mcg/dL % Saturation (15-50) % Transferrin (180-382) mg/dL Total Bilirubin (0.2-1.2) mg/dL AST (5-34) Units/L ALT (0-55) Units/L Alkaline Phosphatase (38-126) Units/L Ammonia (18-72) mcmol/L Troponin I (0-0.03) ng/mL Prot Electrophor EER Serum Total Protein (6.0-8.3) g/dL Total Protein (PEP) (6.00-8.30) g/dL Albumin (3.5-5.0) g/dL Albumin (PEP) (3.75-5.01) g/dL Globulin (2.4-3.5) g/dL Albumin/Globulin Ratio (1.1-2.2) Dtehb-9-Xzsfckurm (0.19-0.46) g/dL Zaypq-5-Oxllqvsnz (0.48-1.05) g/dL Beta Globulins (0.48-1.10) g/dL Gamma Globulins (0.62-1.51) g/dL PEP Interpretation Lipase (8-78) Units/L TSH (0.350-4.840) mcIU/mL PTH Intact (8.5-72.5) pg/ml Serum Immunofix Reflex Urine Color (Yellow) Urine Clarity (Clear) Urine pH (5.0-8.0) pH Units Ur Specific [place] (1.010-1.025) Urine Protein (Neg-Trace) mg/dL Urine Glucose (UA) (Normal) mg/dL Urine Ketones (Negative) mg/dL Urine Blood (Negative) Urine Nitrite (Negative) Urine Bilirubin (Negative) Urine Urobilinogen (Normal) mg/dL Ur Leukocyte Esterase (Negative) Urine Microscopic RBC (0-3) per hpf Urine Microscopic WBC (0-3) per hpf Ur Squamous Epith Cells (None-Few) per lpf Urine Bacteria (None-Few) per hpf Hyaline Casts (None-Few) per lpf Ur Culture Indicated? (NO) Urine Creatinine mg/dL Protein/Creatinin Ratio (0-0.20) mg/mg Urine Total Protein (1-14) mg/dL Fl Pathologist Review Peritoneal Appearance (Clear) Peritoneal Volume mL Peritoneal pH (No Ref Range) pH Units Peritoneal RBC (0.000 - 0.002) M/mcL Periton Tot Nuc Cells (0-300) TNC/mcL Periton Neutrophils % Periton Band Neuts % Peritoneal Eosinophils % Peritoneal Basophils % Periton Lymphocytes % % Periton Monocytes % % Periton Other Cells % % Peritoneal Tot Protein (No Ref Range) g/dL Peritoneal Albumin (No Ref Range) g/dL Peritoneal LDH (No Ref Range) Units/L Peritoneal Glucose (No Ref Range) mg/dL Peritoneal Amylase (No Ref Range) Units/L Peritoneal Triglycerid (No Ref Range) mg/dL Digoxin (0.8-2.0) ng/mL IgG (768-1632) mg/dL IgA (68-408) mg/dL IgM (35-263) mg/dL MATT Screen (None Detected) Myeloperoxidase Ab (0-19) AU/mL Serine Protease 3 Ab (0-19) AU/mL Complement C3 (88-201) mg/dL Complement C4 (10-40) mg/dL Free [place] LC, Quant (0.33-1.94) mg/dL Free Lambda LC, Quant (0.57-2.63) mg/dL Free [place]/Lambda Ratio (0.26-1.65) Hepatitis A IgM Ab (Nonreactive) Hep Bs Antigen (Nonreactive) Hep B Core IgM Ab (Nonreactive) Hepatitis C Ab Screen (Nonreactive) 12/06/16 Range/Units 21:48 WBC (4.3-11.1) K/mcL RBC (3.82-4.97) M/mcL Hgb (11.5-15.4) g/dL Hct (35.3-44.9) % MCV (83.0-100.0) fL MCH (28.0-33.3) pg MCHC (31.6-35.5) g/dL RDW (11.5-14.5) % Plt Count (140-400) K/mcL MPV (9.4-12.4) fL Immature Gran % (0-4) % Seg Neutrophils % % Lymphocytes % % Monocytes % % Eosinophils % % Basophils % % Neutrophils # (1.6-8.9) K/mcL Lymphocytes # (0.6-4.6) K/mcL Monocytes # (0.0-1.3) K/mcL Eosinophils # (0.0-0.6) K/mcL Basophils # (0.0-0.2) K/mcL PT (9.4-12.1) Seconds INR Sodium (136-145) mEq/L Potassium (3.5-4.5) mEq/L Chloride (98-109) mEq/L Carbon Dioxide (19-29) mEq/L BUN (7-20) mg/dL Creatinine (0.57-1.11) mg/dL Est GFR ( Amer) (> 60) Est GFR (Non-Af Amer) (> 60) BUN/Creatinine Ratio (6-26) Glucose (70-99) mg/dL POC Glucose 157 H (58-89) Est Mean Plasma Glucose mg/dl Hemoglobin A1c ( - 5.6) % Calculated Osmolality (280-300) Calcium (8.6-10.8) mg/dL Phosphorus (2.3-4.7) mg/dL Iron (50-170) mcg/dL % Saturation (15-50) % Transferrin (180-382) mg/dL Total Bilirubin (0.2-1.2) mg/dL AST (5-34) Units/L ALT (0-55) Units/L Alkaline Phosphatase (38-126) Units/L Ammonia (18-72) mcmol/L Troponin I (0-0.03) ng/mL Prot Electrophor EER Serum Total Protein (6.0-8.3) g/dL Total Protein (PEP) (6.00-8.30) g/dL Albumin (3.5-5.0) g/dL Albumin (PEP) (3.75-5.01) g/dL Globulin (2.4-3.5) g/dL Albumin/Globulin Ratio (1.1-2.2) Ifpqd-5-Ipzeudyiq (0.19-0.46) g/dL Cdlrw-3-Nnvkpynwo (0.48-1.05) g/dL Beta Globulins (0.48-1.10) g/dL Gamma Globulins (0.62-1.51) g/dL PEP Interpretation Lipase (8-78) Units/L TSH (0.350-4.840) mcIU/mL PTH Intact (8.5-72.5) pg/ml Serum Immunofix Reflex Urine Color (Yellow) Urine Clarity (Clear) Urine pH (5.0-8.0) pH Units Ur Specific [place] (1.010-1.025) Urine Protein (Neg-Trace) mg/dL Urine Glucose (UA) (Normal) mg/dL Urine Ketones (Negative) mg/dL Urine Blood (Negative) Urine Nitrite (Negative) Urine Bilirubin (Negative) Urine Urobilinogen (Normal) mg/dL Ur Leukocyte Esterase (Negative) Urine Microscopic RBC (0-3) per hpf Urine Microscopic WBC (0-3) per hpf Ur Squamous Epith Cells (None-Few) per lpf Urine Bacteria (None-Few) per hpf Hyaline Casts (None-Few) per lpf Ur Culture Indicated? (NO) Urine Creatinine mg/dL Protein/Creatinin Ratio (0-0.20) mg/mg Urine Total Protein (1-14) mg/dL Fl Pathologist Review Peritoneal Appearance (Clear) Peritoneal Volume mL Peritoneal pH (No Ref Range) pH Units Peritoneal RBC (0.000 - 0.002) M/mcL Periton Tot Nuc Cells (0-300) TNC/mcL Periton Neutrophils % Periton Band Neuts % Peritoneal Eosinophils % Peritoneal Basophils % Periton Lymphocytes % % Periton Monocytes % % Periton Other Cells % % Peritoneal Tot Protein (No Ref Range) g/dL Peritoneal Albumin (No Ref Range) g/dL Peritoneal LDH (No Ref Range) Units/L Peritoneal Glucose (No Ref Range) mg/dL Peritoneal Amylase (No Ref Range) Units/L Peritoneal Triglycerid (No Ref Range) mg/dL Digoxin (0.8-2.0) ng/mL IgG (768-1632) mg/dL IgA (68-408) mg/dL IgM (35-263) mg/dL MATT Screen (None Detected) Myeloperoxidase Ab (0-19) AU/mL Serine Protease 3 Ab (0-19) AU/mL Complement C3 (88-201) mg/dL Complement C4 (10-40) mg/dL Free [place] LC, Quant (0.33-1.94) mg/dL Free [place] LC, Quant (0.57-2.63) mg/dL Free [place]/Lambda Ratio (0.26-1.65) Hepatitis A IgM Ab (Nonreactive) Hep Bs Antigen (Nonreactive) Hep B Core IgM Ab (Nonreactive) Hepatitis C Ab Screen (Nonreactive) - Radiology Data Radiology results reviewed: Yes I reviewed the patient's radiology results. Chest X-Ray 12/04/16 11:40 IMPRESSION: Pulmonary venous congestion without overt edema. No acute abnormality of the chest otherwise. D/ / Carroll Dobbs MD / Carroll Dobbs MD Interpreting Provider: Carroll Dobbs MD - EKG Data EKG #1 EKG attestation: Yes I reviewed and interpreted this EKG. EKG results narrative: EKG dated: December 11 rib as sinus bradycardia with a rate of 47. Left axis. Normal intervals SC 172, QRS 117, QT/QTC 374/337. Nonspecific ST-T changes. Compared to previous dated 07/23/2016 showing no acute ischemic changes comparison. Attestation Statement - Attestation Attestation: I examined this patient and my medical decision-making was reviewed with the Resident Physician. I agree with the documented findings, disposition and treatment plan as described except to the extent set forth below. On neurological exam, pt has equal and reactive pupils, moves all extremities equally well, no lateralizing deficits. No dysarthria.
[2016-12-04] MEDS ORDERED: Aspirin 81 MG TAB.CHEW PO ONE (12:37)
[2016-12-04 13:05] LABS: Bilirubin,Urine Negative (Negative); Blood,Urine Negative (Negative); Clarity,Urine Cloudy (Clear); Color,Urine Yellow (Yellow); Glucose,Urine (UA) Normal (Normal); Ketones,Urine Negative (Negative); Leukocyte Esterase,Urine Negative (Negative); Nitrite,Urine Negative (Negative); Protein,Urine 100 mg/dL (Neg-Trace); Specific Gravity,Urine 1.012 (1.010-1.025); Urobilinogen,Urine Normal (Normal)
[2016-12-04 13:08] LABS: Bacteria,Urine Few per hpf (None-Few); Hyaline Casts,Urine None Seen per lpf (None-Few); RBC,Urine 0-3 per hpf (0-3); Squamous Epithelial Cell,Urine Many per lpf (None-Few); WBC,Urine 0-3 per hpf (0-3)
[2016-12-04] MEDS ORDERED: *HR* HYDROcodone/Acet 5/325 mg TABLET PO ONE (13:36)
[2016-12-04] MEDS ORDERED: rOPINIRole 1 MG TABLET PO STA (13:37)
[2016-12-04 13:56] LABS: Digoxin 2.3 ng/mL (0.8-2.0); Thyroid Stimulating Hormone 2.267 mcIU/mL (0.350-4.840)
--- NOTE | 2016-12-04 14:15 | Electrocardiograph Report ---
[place] [id number] Test Date: 2016-12-04 Pat Name: Muriel Jeong Department: 103 Room: Gender: F Metal Drill Press Operator: : [id number] Requested By: Roderick Quiroz Order Number: [id number] Reading MD: Nova Lugo Measurements Intervals [place] Rate: 47 P: -48 VA: 172 QRS: -26 QRSD: 117 T: 99 QT: 374 QTc: 337 Interpretive Statements SINUS BRADYCARDIA BORDERLINE LEFT AXIS DEVIATION LEFT VENTRICULAR HYPERTROPHY AND ST-T CHANGE Electronically Signed On 12-04-2016 14:13:52 EST by Nova Lugo
[2016-12-04] MEDS ORDERED: rOPINIRole 1 MG TABLET PO SCH (15:00)
[2016-12-04] MEDS ORDERED: MOM Conc 10 ML UD.LIQ PO PRN (15:41)
[2016-12-04] MEDS ORDERED: Naloxone 0.4 MG/ML INJ IVP PRN (15:41)
[2016-12-04] MEDS ORDERED: Ondansetron 4 MG/2 ML VIAL IVP PRN (15:41)
[2016-12-04] MEDS ORDERED: Mag Hydrox/Al Hydrox/Simeth 30 ML UDC PO PRN (15:41)
--- NOTE | 2016-12-04 16:11 | Internal Med History&Physical ---
<Zuri West - Last Filed: 12/04/16 16:42> Date of Encounter: 12/04/16 Time of Encounter: 14:55 Assessment and Plan (1) Ascites Current visit: Yes Status: Acute Cirrhosis, hepatic panel labs WNL at this time. Pt's abdomen distended, firm, painful to even light touch, causing pt to be SOB and uncomfortable. No fluid wave appreciated due to distension. Per ER staff and pt, she is to have a paracentesis tomorrow by Dr. Hernandez. I have spoken with him and he is aware that pt is admitted. Will monitor pt. Continuous pulse ox Staff Readiness Officer a.m labs. Qualifiers: Ascites type: other type Qualified Code(s): R18.8 - Other ascites (2) Cellulitis Current visit: Yes Status: Acute Pt scratched R dempsey with a cardboard box 2 weeks ago, area surrounding wound is red, warm, and painful to light touch. Pt states that it drains "water". Pt does have +3 pitting edema to serge lower extremitites. WBC 12.2, could be source of infection. Will start Zosyn 2.25g q6h, pts creatinine clearance 23.18 with adjusted weight taken on ER bed of 214#. Qualifiers: Site of cellulitis: extremity Site of cellulitis of extremity: lower extremity Laterality: right Qualified Code(s): L03.115 - Cellulitis of right lower limb (3) CKD (chronic kidney disease) stage 4, GFR 15-29 ml/min Current visit: No Status: Chronic BUN 37, Creatinine 3.22. Will continue to monitor. No NSAIDs or nephrotoxins Renal diet Monitor labs. (4) Elevated troponin Current visit: No Status: Acute Pts troponin is chronically elevated, most likely due to CKD. Today is 0.05ng/dl , which is actually the lowest level at her baseline. Pt denies chest pain, however she has been increasingly SOB over the last 3 weeks. Monitor shows sinus bradycardia and EKG shows the same without ST elevation or T wave inversion. Serial troponins Telemetry Continuous pulse ox Monitor labs (5) Iron deficiency anemia Current visit: No Status: Acute Stable. Will continue to monitor H&H for changes. Qualifiers: Iron deficiency anemia type: unspecified iron deficiency Qualified Code(s) : D50.9 - Iron deficiency anemia, unspecified (6) Mental status change Current visit: No Status: Acute Family reports that pt has been confused and has been having hallucinations. Pt is appropriate during exam and is oriented x 3. Ammonia WNL at 30. Will continue to monitor pt. Fall precautions. Qualifiers: Altered mental status type: unspecified Qualified Code(s): R41.82 - Altered mental status, unspecified (7) Diabetes mellitus Current visit: No Status: Chronic Serum glucose 99mg/dl today. Last A1c over 90 days. Diabetic diet Sliding scale insulin Accuchecks achs A1c Qualifiers: Diabetes mellitus type: type 2 Diabetes mellitus complication status: with kidney complications Diabetes mellitus complication detail: with chronic kidney disease Chronic kidney disease stage: stage 4 (severe) Qualified Code (s): E11.22 - Type 2 diabetes mellitus with diabetic chronic kidney disease; N18.4 - Chronic kidney disease, stage 4 (severe) Internal Medicine - H&P: HPI Chief complaint: dyspnea, nausea, ascites x 4 days Admitted From: Home Plans for Post Hospital Care: Home History of present illness: Ms. Jeong is a 76 year old female with history of cirrhosis, ascites, CHF , [id number], BELL, COPD, CKD stage III, CAD, DM, cardiomyopathy, and HTN. Pt c/o dyspnea x 3 weeks, has been increasing over the last 4-5 days. Family states that pt has been confused and having hallucinations this week. She was seen by Dr. Roper 2 days ago and was told at that time to come to the ED for diuresis, but pt states that she was too busy and had things to do at home. Pt states that she feels "terrible" and has serge 7/10 leg pain. Denies chest pain but c/o SOB from fluid overload. Pt also has a 2 week old wound to R dempsey from a cardboard box that is red, warm, painful, and drains serous fluid. Pt also is a pt of Dr. Hernandez and is to have a paracentesis tomorrow in the office. I just spoke to Dr. Hernandez who is aware that the pt is admitted and will see her tomorrow. Past Med Surg Social Fam HX - Past Medical History Medical history: arthritis, asthma, atrial fibrillation, CHF, COPD, coronary artery disease, DVT, dementia, diabetes, GERD, hyperlipidemia, hypertension, myocardial infarction, peripheral artery disease, pulmonary embolus, renal disease, thyroid disease, TIA, venous stasis, other Psychiatric history: anxiety, depression - Past Surgical History Surgical History: angioplasty/stent, cholecystectomy, hysterectomy, knee replacement, orthopedic, other, other - Social History Smoking Status: Current every day smoker Smokeless Tobacco Status: No Alcohol use: none Drug use: none - Family History Mother Family Member Ethnicity: Non- Living Status: Hx Family Cardiac Disorders: Yes Hx Family Respiratory Disorders: Yes Hx Family Cancer: Yes Hx Family GI Disorders: No Hx Family Endocrine Disorder: No Hx Family Neuromuscular Disorders: No Hx Family Neurologic Disorders: Yes Hx Family HEENT Disorders: No Hx Family Autoimmune Disorders: No Internal Medicine - H&P: Meds Folic Acid 1 mg PO DAILY 15 Days 10/10/15 [Rx] Losartan [Cozaar] 50 mg PO DAILY tablet 10/10/15 [Rx] Levothyroxine [Synthroid] 75 mcg PO 0630 10/26/15 [History] Isosorbide MONOnitrate (24 HR) [Imdur] 60 mg PO DAILY tab.er.24h 10/30/15 [Rx] Metoprolol XL (24 HR) Succ [Toprol Xl] 25 mg PO DAILY tab.er.24h 10/30/15 [Rx] Amiodarone [Cordarone] 200 mg PO DAILY 11/19/16 [History] Digoxin [Lanoxin] 0.125 mg PO DAILY 11/19/16 [History] HYDROcodone/Acet 5/325 mg [[place] 5-325 mg] 1 tab PO BID PRN 11/19/16 [History] Ropinirole [Requip] 1 mg PO HS 11/19/16 [History] TraZODone 50 - 100 mg PO HS 11/19/16 [History] Bumetanide [Bumetanide] 4 mg PO BID 12/04/16 [History] Duloxetine [Cymbalta] 30 mg PO DAILY 12/04/16 [History] Insulin Aspart Prot/Insuln Asp [Novolog Mix 70-30 Flexpen Syrn] 50 unit SQ BID 12/04/16 [History] Allergies azithromycin [From Zithromax] Allergy (Verified 11/19/16 17:29) Rash furosemide [From Lasix] Adverse Reaction (Verified 11/19/16 17:29) Headache ketorolac [From Toradol] Adverse Reaction (Verified 11/19/16 17:29) Hypotension All Systems PM: A 10-system review of systems was performed and is negative for pertinent findings except as documented above in the HPI. - Constitutional Constitutional: fatigue, weakness, no chills, no fever(s), no falls, no lethargy - Cardiovascular Cardiovascular ROS IM: dyspnea, edema, orthopnea, no chest pain, no diaphoresis , no lightheadedness, no palpitations, no syncope - Respiratory Respiratory: no cough, no pain on inspiration, no chest congestion, no excessive phlegm production, no change in phlegm color, no pain with cough - Gastrointestinal Gastrointestinal: no diarrhea, no nausea, no vomiting - Musculoskeletal Musculoskeletal ROS IM: limited range of motion, muscle weakness, no back pain - Integumentary Integumentary IM: erythema, non-healing lesions - Constitutional Vitals: Temp Pulse Resp BP Pulse Ox 97.7 F 44 16 173/67 97 12/04/16 11:23 12/04/16 14:47 12/04/16 14:47 12/04/16 14:47 12/04/16 14:47 General appearance: Present: A&O X 3, pleasant, answers questions appropriately - Head Head exam: Present: normal inspection - Eye Eye exam: Present: normal appearance, conjuntiva pink - ENT ENT exam: Present: mucous membranes moist, normal external ear exam - Neck Neck exam general surgery: Present: lymphadenopathy, normal inspection. Absent : tenderness, thyromegaly - Respiratory Respiratory exam: Present: decreased breath sounds, CTAB. Absent: chest wall tenderness, rales, rhonchi, wheezes - Cardiovascular Cardiovascular exam: Present: RRR, +S1, +S2 - GI/Abdominal GI/Abdominal exam: Present: distended, rigid - Expanded GI/Abdominal Exam GI/Abdominal exam expanded: Present: ascites - Extremities Exam Extremities exam: Present: normal capillary refill, pedal edema, tenderness, warm, radial pulses palpable and symetrical. Absent: calf tenderness, cyanotic , full ROM Additional comments: Pt has approx 1cm vertical skin tear/laceration from cardboard box from 2 weeks ago. Surrounding area red, warm, painful and pt reports serous fluid drainage. Pt yells out in pain with light touch. - Neurological Exam Neurological exam: Present: alert, oriented X3. Absent: no focal deficits, strengths equal and symetr throughout, facial droop, speech deficit Internal Med - H&P Results - Labs CBC & Chem 7: 12/04/16 11:54 12/04/16 11:54 - EKG Data EKG shows normal: sinus rhythm Rate: bradycardia - EKG Data Prior EKG available for review: yes When compared to previous EKG: there is no significant change Interpretation IM: normal EKG EKG comments: 12/04/16 16:17 Prior EKG from 07/23/16, no change Sinus bradycardia Rate 47 AK int 172 QRS 117 OT/Qtc 374/337 <Maxwell De La Rosa P - Last Filed: 12/04/16 18:33> Date of Encounter: 12/04/16 Internal Medicine - H&P: HPI History of present illness: Ms. Jeong is a 76 year old female All Systems PM: A 10-system review of systems was performed and is negative for pertinent findings except as documented above in the HPI. - Constitutional Vitals: Temp Pulse Resp BP Pulse Ox 98 F 45 16 186/70 95 12/04/16 17:38 12/04/16 17:38 12/04/16 17:38 12/04/16 17:38 12/04/16 17:38 Internal Med - H&P Results - Labs CBC & Chem 7: 12/04/16 11:54 12/04/16 11:54 - Attending Attestation I examined this patient and my medical decision-making was reviewed with the WOOD PATTERN MAKER/PA/Advanced Practice Nurse/Resident Physician. I agree with the documented findings, disposition and treatment plan as described except to the extent set forth below. GI/Renal opinion please
[2016-12-04] MEDS ORDERED: Dextrose Gel 15 GM PO PRN ×2 (16:40)
[2016-12-04] MEDS ORDERED: *HR* Dextrose 50 % in Water (Syg) 50 ML SYRINGE IVP PRN (16:40)
[2016-12-04] MEDS ORDERED: D5% in Water 1,000 ML IV PRN (16:40)
[2016-12-04 17:31] LABS: Hemoglobin A1C 6.5 %
[2016-12-04] MEDS: Piperacillin/Tazobactam 3.375 GM in D5% in Water (Mini-Bag+) 100 ML IVPB SCH (18:15)
[2016-12-04] MEDS: rOPINIRole 1 MG TABLET PO SCH (21:57)
[2016-12-04] MEDS: Bumetanide 1 MG TABLET PO SCH (21:57)
[2016-12-04] MEDS: traZODone 50 MG TABLET PO SCH (21:57)
[2016-12-04] MEDS: Insulin LISPRO 300 UNITS/3 ML VIAL SQ SCH (21:57)
[2016-12-05] MEDS: Piperacillin/Tazobactam 3.375 GM in D5% in Water (Mini-Bag+) 100 ML IVPB SCH ×2 (00:37→09:19)
[2016-12-05 07:03] LABS: Calcium 8.8 mg/dL (8.6-10.8); Potassium 4.5 mEq/L (3.5-4.5)
[2016-12-05 07:29] LABS: Basophils % 0.4 %; Eosinophils # 0.5 K/mcL (0.0-0.6); Eosinophils % 4.3 %; Hematocrit 32.1 % (35.3-44.9); Hemoglobin 9.6 g/dL (11.5-15.4); Immature Granulocytes % 0.4 % (0-4); Lymphocytes # 1.4 K/mcL (0.6-4.6); Lymphocytes % 13.4 %; Mean Corpuscular HGB Conc 29.9 g/dL (31.6-35.5); Mean Corpuscular Hemoglobin 23.1 pg (28.0-33.3); Mean Corpuscular Volume 77.2 fL (83.0-100.0); Mean Platelet Volume 11.1 fL (9.4-12.4); Monocytes # 0.9 K/mcL (0.0-1.3); Monocytes % 8.2 %; Neutrophils # 7.9 K/mcL (1.6-8.9); Platelet Count 327 K/mcL (140-400); Red Blood Count 4.16 M/mcL (3.82-4.97); Red Cell Distribution Width 17.5 % (11.5-14.5); Segmented Neutrophils % 73.3 %
[2016-12-05] MEDS ORDERED: Metoprolol XL (24 HR) Succ 25 MG TAB.ER.24H PO SCH (09:00)
[2016-12-05] MEDS ORDERED: *HR* Digoxin 0.125 MG TABLET PO SCH (09:00)
[2016-12-05] MEDS: Insulin LISPRO 300 UNITS/3 ML VIAL SQ SCH ×4 (09:19→21:49)
[2016-12-05] MEDS: Isosorbide MONOnitrate (24 HR) 60 MG TAB.ER.24H PO SCH (09:21)
[2016-12-05] MEDS: Bumetanide 1 MG TABLET PO SCH ×2 (09:21→20:27)
[2016-12-05] MEDS: Folic Acid 1 MG TABLET PO SCH (09:21)
[2016-12-05] MEDS: *HR* Amiodarone 200 MG TABLET PO SCH (09:22)
[2016-12-05] MEDS: *HR* HYDROcodone/Acet 5/325 mg TABLET PO PRN (09:28)
--- NOTE | 2016-12-05 10:30 | Internal Med Progress Note ---
<Enmanuel Olson - Last Filed: 12/05/16 10:24> Date of Encounter: 12/05/16 Time of Encounter: 10:00 - Assessment and plan (1) Ascites Current Visit: Yes Status: Acute Assessment and plan: Patient recently had appointment with Dr. Hernandez on 11/21/16 and was referred to him for evaluation of her ascites. CT scan without contrast from that week showed large amount of ascitic fluid. Ultrasound of liver showed nodular contour of liver, concerning for cirrhosis. She had paracentesis ordered by Dr. Hernandez but never had it done due to hospitalization. GI on board. Appreciate recommendations from Dr. Hernandez. Plan for paracentesis later this afternoon with 50g albumin supplementation afterwards. Patient does not report history of alcohol abuse. She states that her abdominal distention and shortness of breath had started recently, about a month ago. Qualifiers: Ascites type: other type Qualified Code(s): R18.8 - Other ascites (2) Iron deficiency anemia Current Visit: No Status: Acute Assessment and plan: Hg remains stable. Continue to monitor. Per GI, plan is for EGD/colonoscopy on Friday Qualifiers: Iron deficiency anemia type: unspecified iron deficiency Qualified Code(s) : D50.9 - Iron deficiency anemia, unspecified (3) Cellulitis Current Visit: Yes Status: Acute Assessment and plan: Patient has wound present on left lower extremity that is erythematous and warm She had this wound for about two weeks when hitting her schin on a coardboard box. CUrrently on zosyn day 2. Qualifiers: Site of cellulitis: extremity Site of cellulitis of extremity: lower extremity Laterality: right Qualified Code(s): L03.115 - Cellulitis of right lower limb (4) CHF (congestive heart failure) Current Visit: Yes Status: Chronic Assessment and plan: last echo from 02/21/16 showed LVEF 60%, mild concentric LVH, mild centricular diastolic dysfunction. normal RV structure and function. Aortic valve was not well visualized but appeared mild-moderately thickened/ calcified. valve morphology was not well visualized. mild-moderate aortic stenosis. Patient is allergic to lasix, continue home med Bumex. Qualifiers: Congestive heart failure type: unspecified congestive heart failure type (5) CKD (chronic kidney disease) Current Visit: Yes Status: Acute Assessment and plan: Cr is 2.57, baseline around 1.8 Continue to monitor. Avoid nephrotoxic agents. Qualifiers: Chronic kidney disease stage: stage 4 (severe) Qualified Code(s): N18.4 - Chronic kidney disease, stage 4 (severe) (6) Elevated troponin Current Visit: Yes Status: Acute Assessment and plan: Trending down. Patient is chest pain free. (7) Mental status change Current Visit: No Status: Resolved Assessment and plan: Resolved. CUrrently patient is alert and oriented x3, mentating properly. Qualifiers: Altered mental status type: unspecified Qualified Code(s): R41.82 - Altered mental status, unspecified (8) Diabetes mellitus Current Visit: No Status: Chronic Assessment and plan: Surgars controlled within acceptable limits at this time. Continue low dose sliding scale insulin with ACHS accuchecks. continue fluid restricted diabetic diet. Patient's A1C was 6.5 Qualifiers: Diabetes mellitus type: type 2 Diabetes mellitus complication status: with kidney complications Diabetes mellitus complication detail: with chronic kidney disease Chronic kidney disease stage: stage 4 (severe) Qualified Code (s): E11.22 - Type 2 diabetes mellitus with diabetic chronic kidney disease; N18.4 - Chronic kidney disease, stage 4 (severe) (9) DVT prophylaxis Current Visit: Yes Status: Acute Assessment and plan: Heparin SQ - Subjective Interval history: 81 year old female evaluated at bedside. Patient is alert and oriented x3, mild distress from pain. She states she had one episode of vomiting earlier this morning and got a dose of zofran. - Constitutional Vitals: Temp Pulse Resp BP Pulse Ox 98.3 F 49 16 171/55 93 L 12/05/16 07:27 12/05/16 07:27 12/05/16 07:27 12/05/16 07:27 12/05/16 07:27 General appearance: Present: mild distress (mild distress from pain. ), A&O X 3 , pleasant, answers questions appropriately - Head Head exam: Present: atraumatic, normocephalic - Neck Neck exam general surgery: Present: supple, trachea midline - Respiratory Additional comments: crackles present on lower lobes bilaterally. - Cardiovascular Cardiovascular exam: Present: systolic murmur Additional comments: grade V systolic murmur present. - GI/Abdominal GI/Abdominal exam: Present: distended, firm, normal bowel sounds Additional comments: abdomen is significantly distended with ascitic fluid. Normal bowel sounds. - Extremities Exam Additional comments: +2 lower extremity pitting edema bilaterally. Right anterior schin wound that is erythematous, warm. - Neurological Exam Neurological exam: Present: alert, oriented X3, no focal deficits - Skin Additional comments: bruising of skin present throughout. Internal Medicine: Result - Labs CBC & Chem 7: 12/05/16 05:49 12/05/16 05:49 Labs: Short CBC 12/05/16 Range/Units 05:49 WBC 10.8 (4.3-11.1) K/mcL Hgb 9.6 L (11.5-15.4) g/dL Hct 32.1 L (35.3-44.9) % Plt Count 327 (140-400) K/mcL Neutrophils # 7.9 (1.6-8.9) K/mcL BMP 12/05/16 05:49 Sodium 139 Potassium 4.5 Chloride 104 Carbon Dioxide 26 BUN 37 H Creatinine 2.97 H Glucose 127 H Calcium 8.8 Cardiac Enzymes 12/04/16 12/04/16 Range/Units 18:47 23:11 Troponin I 0.04 H* 0.04 H* (0-0.03) ng/mL - ABG Interpretation ABG results: PT/INR, D-dimer PT 14.1 Seconds (9.4-12.1) H 12/04/16 11:54 Consult Discharge Plan - Plan Referrals: Dima Juarez MD [Primary Care Provider] - 12/13/16 11:30 am (Please follow up as schedule...) <Ang Dennis H - Last Filed: 12/05/16 14:23> Date of Encounter: 12/05/16 - Constitutional Vitals: Temp Pulse Resp BP Pulse Ox 98.3 F 47 16 129/58 91 L 12/05/16 11:46 12/05/16 11:46 12/05/16 11:46 12/05/16 11:46 12/05/16 11:46 Internal Medicine: Result - Labs CBC & Chem 7: 12/05/16 05:49 12/05/16 12:45 Labs: Short CBC 12/05/16 Range/Units 05:49 WBC 10.8 (4.3-11.1) K/mcL Hgb 9.6 L (11.5-15.4) g/dL Hct 32.1 L (35.3-44.9) % Plt Count 327 (140-400) K/mcL Neutrophils # 7.9 (1.6-8.9) K/mcL BMP 12/05/16 12/05/16 05:49 12:45 Sodium 139 136 Potassium 4.5 4.6 H Chloride 104 103 Carbon Dioxide 26 27 BUN 37 H 38 H Creatinine 2.97 H 3.05 H Glucose 127 H 195 H Calcium 8.8 8.7 Cardiac Enzymes 12/04/16 12/04/16 Range/Units 18:47 23:11 Troponin I 0.04 H* 0.04 H* (0-0.03) ng/mL Liver Function 12/05/16 Range/Units 12:45 Albumin 2.4 L (3.5-5.0) g/dL - ABG Interpretation ABG results: PT/INR, D-dimer PT 14.1 Seconds (9.4-12.1) H 12/04/16 11:54 - Attending Attestation paracentesis today. Continue bumex. I examined this patient and my medical decision-making was reviewed with the DOCTOR OF CHIROPRACTIC/PA/Advanced Practice Nurse/Resident Physician. I agree with the documented findings, disposition and treatment plan as described except to the extent set forth below.
--- NOTE | 2016-12-05 10:46 | Nephrology Consult Note ---
Date of Encounter: 12/05/16 Time of Encounter: 09:00 History of Present Illness - Reason for Consult Consult date: 12/05/16 Acute Kidney Injury, Chronic Kidney Disease, proteinuria Requesting physician: Zuri West - Chief Complaint DEMETRIUS Past Med Surg Social Fam HX - Past Medical History Medical history: arthritis, asthma, atrial fibrillation, CHF, COPD, coronary artery disease, DVT, dementia, diabetes, GERD, hyperlipidemia, hypertension, myocardial infarction, peripheral artery disease, pulmonary embolus, renal disease, thyroid disease, TIA, venous stasis, other Psychiatric history: anxiety, depression - Past Surgical History Surgical History: angioplasty/stent, cholecystectomy, hysterectomy, knee replacement, orthopedic, other, other - Social History Smoking Status: Current every day smoker Smokeless Tobacco Status: No Alcohol use: none Drug use: none - Family History Mother Family Member Ethnicity: Non- Living Status: Hx Family Cardiac Disorders: Yes Hx Family Respiratory Disorders: Yes Hx Family Cancer: Yes Hx Family GI Disorders: No Hx Family Endocrine Disorder: No Hx Family Neuromuscular Disorders: No Hx Family Neurologic Disorders: Yes Hx Family HEENT Disorders: No Hx Family Autoimmune Disorders: No Medications and Allergies Folic Acid 1 mg PO DAILY 15 Days 10/10/15 [Rx] Losartan [Cozaar] 50 mg PO DAILY tablet 10/10/15 [Rx] Levothyroxine [Synthroid] 75 mcg PO 0630 10/26/15 [History] Isosorbide MONOnitrate (24 HR) [Imdur] 60 mg PO DAILY tab.er.24h 10/30/15 [Rx] Metoprolol XL (24 HR) Succ [Toprol Xl] 25 mg PO DAILY tab.er.24h 10/30/15 [Rx] Amiodarone [Cordarone] 200 mg PO DAILY 11/19/16 [History] Digoxin [Lanoxin] 0.125 mg PO DAILY 11/19/16 [History] HYDROcodone/Acet 5/325 mg [[place] 5-325 mg] 1 tab PO BID PRN 11/19/16 [History] Ropinirole [Requip] 1 mg PO HS 11/19/16 [History] TraZODone 50 - 100 mg PO HS 11/19/16 [History] Bumetanide [Bumetanide] 4 mg PO BID 12/04/16 [History] Duloxetine [Cymbalta] 30 mg PO DAILY 12/04/16 [History] Insulin Aspart Prot/Insuln Asp [Novolog Mix 70-30 Flexpen Syrn] 50 unit SQ BID 12/04/16 [History] Allergies azithromycin [From Zithromax] Allergy (Verified 11/19/16 17:29) Rash furosemide [From Lasix] Adverse Reaction (Verified 11/19/16 17:29) Headache ketorolac [From Toradol] Adverse Reaction (Verified 11/19/16 17:29) Hypotension Review of Systems All Systems: reviewed and no additional remarkable complaints except as stated Exam - Vital Signs Vital signs: Initial Vital Signs Temp Pulse Resp BP Pulse Ox 97.7 F 48 20 177/72 95 12/04/16 11:23 12/04/16 11:23 12/04/16 11:23 12/04/16 11:23 12/04/16 11:23 Vital Signs - Last 8 Hours Temp Pulse Resp BP Pulse Ox 12/05/16 07:27 98.3 F 49 16 171/55 93 L 12/05/16 03:53 97.9 F 48 19 170/63 96 Intake and Output 12/04/16 12/05/16 12/05/16 23:59 07:59 15:59 Intake Total 100 / 100 100 / 100 360 / 360 Output Total 0 / 0 Balance 100 / 100 100 / 100 360 / 360 Intake: IV Fluids 100 / 100 100 / 100 Zosyn 3.375 GM In 100 / 100 100 / 100 Dextrose 5% (Minibag+) 100 ML 100 ML @ 25 mls/hr IVPB Q8H [facility] Rx#: [id number] Oral 360 / 360 Output: Urine 0 / 0 Other: Meal Dinner Breakfast Percent of Meal Consumed 100% 50% Weight 79.2 kg Blood Glucose* 209 129 Patient Weight 12/05/16 23:59 Weight 79.2 kg - General Appearance General appearance: well-developed, well-nourished, obese EENT: ATNC, mucous membranes dry Neck: no JVD, supple Respiratory: rales, course breath sounds Cardiology: edema (edema of b/l LE, edema and ascites of abdomen), regular rate , regular rhythm, normal S1, normal S2 Gastrointestinal: hypoactive bowel sounds, tenderness, guarding, distended Additional Comments: significant ascites with caput medusa, fluid wave, tenderness, tympani Additional Comments: dry, flaking skin erythema to anterior right LE with abrasion that is scabbed and healing, warm to the touch Neurologic: alert and oriented x3 (patient has difficulty recalling medical history and symptom history, states she has a hard time expressing what she is thinking) Musculoskeletal: erythema (right anterior LE), no cyanosis, no clubbing Psychiatric: cooperative Results - Lab Results 12/05/16 05:49 12/05/16 05:49 Most recent lab results Calcium 8.8 mg/dL (8.6-10.8) 12/05/16 05:49 Consult Discharge Plan - Plan Referrals: Dima Juarez MD [Primary Care Provider] - 12/13/16 11:30 am (Please follow up as schedule...)
--- NOTE | 2016-12-05 12:05 | Gastroenterology Consult Note ---
<Narinder Morris - Last Filed: 12/05/16 12:01> Date of Encounter: 12/05/16 Time of Encounter: 11:00 - Assessment and plan (1) Ascites Current Visit: Yes Status: Acute Assessment and plan: CT A/P 11/19/2016 showed large amount of ascites. Ultrasound showed nodular contour of liver suspicious for cirrhosis. Patient has a Lasix allergy. Patient ascites is complex due to CKD, CHF, and also possible liver cirrhosis. Because of her allergies to Lasix and also because of her CKD it will be difficult to manage her with medication. She is also not a candidate for TIPS because of her CHF. Plan for paracentesis today, rule out SBP. Qualifiers: Ascites type: other type Qualified Code(s): R18.8 - Other ascites (2) CKD (chronic kidney disease) Current Visit: Yes Status: Acute Assessment and plan: Management per Nephrology. Qualifiers: Chronic kidney disease stage: stage 4 (severe) Qualified Code(s): N18.4 - Chronic kidney disease, stage 4 (severe) (3) CHF (congestive heart failure) Current Visit: Yes Status: Chronic Qualifiers: Congestive heart failure type: unspecified congestive heart failure type Congestive heart failure chronicity: unspecified congestive heart failure chronicity Qualified Code(s): I50.9 - Heart failure, unspecified (4) Microcytic anemia Current Visit: Yes Status: Acute Assessment and plan: Plan for EGD and colonoscopy on Friday. Pt agreeable to EGD, but refuses to complete colonoscopy at this time, and wants to speak with Dr. Hernandez about the procedure. NPO at midnight Friday night for EGD. If pt agreeable to colonoscopy: Clear liquid diet Friday, no red or purple. NPO at midnight Friday night. If unable tolerate NuLytely please use MiraLAX prep. If not clear by 6 AM Friday, give 2 tap water enemas. - Time Spent With Patient Total time spent is greater than 50% in coordination of care (as documented) at patient's floor/unit and/or counseling patient: GI History of Present Illness - Data of Consult Patient: known to practice within the last 3 years Consult date: 12/05/16 Requesting Physician: Ang Dennis - Consult Narrative Reason for consult: Ascites History of present illness: Ms. Jeong is a 76 year old female with PMHx of arthritis, asthma, Afib, CHF, COPD, CAD, DVT, DM, GERD, BELL, HTN, MA, PE, CKD stage IV, and possible cirrhosis who presented to the ED c/o dyspnea for 3 weeks, which has worsened over the past 4-5 days. Per family, the patient has been confused and having hallucinations. She saw Dr. Roper on 12/02/16 who recommended hospital admission for adjustment of her diuretics. She was seen in the [place] ED in November and CT scan showed large mount of ascites. US showed nodular contour of liver suspicious for cirrhosis. She was scheduled to have paracentesis today (12/05). Procedure: EGD 09/14/2015 Dr. Hernandez: Small hiatus hernia, single spot bleeding in the duodenum, clips were placed. NSAIDs: None Anticoagulation: None Past Med Surg Social Fam HX - Past Medical History Medical history: arthritis, asthma, atrial fibrillation, CHF, COPD, coronary artery disease, DVT, dementia, diabetes, GERD, hyperlipidemia, hypertension, myocardial infarction, peripheral artery disease, pulmonary embolus, renal disease, thyroid disease, TIA, venous stasis, other Psychiatric history: anxiety, depression - Past Surgical History Surgical History: angioplasty/stent, cholecystectomy, hysterectomy, knee replacement, orthopedic, other, other - Social History Smoking Status: Current every day smoker Smokeless Tobacco Status: No Alcohol use: none Drug use: none - Family History Mother Family Member Ethnicity: Non- Living Status: Hx Family Cardiac Disorders: Yes Hx Family Respiratory Disorders: Yes Hx Family Cancer: Yes Hx Family GI Disorders: No Hx Family Endocrine Disorder: No Hx Family Neuromuscular Disorders: No Hx Family Neurologic Disorders: Yes Hx Family HEENT Disorders: No Hx Family Autoimmune Disorders: No - Gastrointestinal Gastrointestinal: Present: as per HPI - Constitutional Constitutional: as per HPI - EENT Eyes: as per HPI Ears: Present: as per HPI Nose, mouth and throat: Present: as per HPI - Cardiovascular Cardiovascular ROS: Present: as per HPI - Respiratory Respiratory IM: Present: as per HPI - Genitourinary Genitourinary: Absent: change in color, Urinary frequency - Neurological ROS Neurological GI: Present: as per HPI - Hematologic/Lymphatic Hematologic/Lymphatic pediatric: Present: as per HPI - Musculoskeletal Musculoskeletal ROS GI: Present: as per HPI - Integumentary Integumentary GI: Present: as per HPI - Psychiatric ROS Psychiatric GI: Present: as per HPI - Endocrine Endocrine IM: Present: as per HPI - Constitutional Vitals: Temp Pulse Resp BP Pulse Ox 98.3 F 47 16 129/58 91 L 12/05/16 11:46 12/05/16 11:46 12/05/16 11:46 12/05/16 11:46 12/05/16 11:46 General appearance: Present: cooperative, A&O X 3, no acute distress, answers questions appropriately - Head Head exam: Present: atraumatic, normocephalic - Eye Eye exam: Present: normal appearance, sclera anicteric - ENT ENT exam: Present: mucous membranes moist - Neck Neck exam general surgery: Present: normal inspection, trachea midline - Respiratory Respiratory exam: Present: rales. Absent: CTAB - Cardiovascular Cardiovascular exam: Present: RRR, +S1, +S2 - GI/Abdominal GI/Abdominal exam: Present: distended, firm, tenderness, no peritoneal signs. Absent: guarding, soft - Expanded GI/Abdominal Exam GI/Abdominal exam expanded: Present: ascites - Rectal Rectal exam: Present: deferred - Extremities Exam Extremities exam: Present: warm Additional comments: RLE with scabbed area - Neurological Exam Neurological exam: Present: no focal deficits - Psychiatric Psychiatric exam: Present: normal affect, normal mood - Skin Skin exam: Present: dry, intact, normal color, warm Results - Labs CBC & Chem 7: 12/05/16 05:49 12/05/16 05:49 Labs: Last Result Calcium 8.8 mg/dL (8.6-10.8) 12/05/16 05:49 Troponin I 0.04 ng/mL (0-0.03) H* 12/04/16 23:11 Entire Visit Hgb 9.6 g/dL (11.5-15.4) L 12/05/16 05:49 Hct 32.1 % (35.3-44.9) L 12/05/16 05:49 PT 14.1 Seconds (9.4-12.1) H 12/04/16 11:54 Total Bilirubin 0.5 mg/dL (0.2-1.2) 12/04/16 11:54 AST 26 Units/L (5-34) 12/04/16 11:54 ALT 15 Units/L (0-55) 12/04/16 11:54 Ammonia 30 mcmol/L (18-72) 12/04/16 11:54 Lipase 20 Units/L (8-78) 12/04/16 11:54 - ABG ABG results: PT/INR, D-dimer PT 14.1 Seconds (9.4-12.1) H 12/04/16 11:54 Consult Discharge Plan - Plan Referrals: Dima Juarez MD [Primary Care Provider] - 12/13/16 11:30 am (Please follow up as schedule...) <Breanna Hernandez - Last Filed: 12/05/16 14:09> Date of Encounter: 12/05/16 Time of Encounter: 13:00 - Time Spent With Patient Total time spent is greater than 50% in coordination of care (as documented) at patient's floor/unit and/or counseling patient: GI History of Present Illness - Data of Consult Requesting Physician: Ang Dennis - Consult Narrative History of present illness: Ms. Jeong is a 76 year old female - Constitutional Vitals: Temp Pulse Resp BP Pulse Ox 98.3 F 47 16 129/58 91 L 12/05/16 11:46 12/05/16 11:46 12/05/16 11:46 12/05/16 11:46 12/05/16 11:46 Results - Labs CBC & Chem 7: 12/05/16 05:49 12/05/16 12:45 Labs: Last Result Calcium 8.7 mg/dL (8.6-10.8) 12/05/16 12:45 Iron 19 mcg/dL (50-170) L 12/05/16 12:45 % Saturation 7 % (15-50) L 12/05/16 12:45 Transferrin 193 mg/dL (180-382) 12/05/16 12:45 Troponin I 0.04 ng/mL (0-0.03) H* 12/04/16 23:11 Entire Visit Hgb 9.6 g/dL (11.5-15.4) L 12/05/16 05:49 Hct 32.1 % (35.3-44.9) L 12/05/16 05:49 PT 14.1 Seconds (9.4-12.1) H 12/04/16 11:54 Total Bilirubin 0.5 mg/dL (0.2-1.2) 12/04/16 11:54 AST 26 Units/L (5-34) 12/04/16 11:54 ALT 15 Units/L (0-55) 12/04/16 11:54 Ammonia 30 mcmol/L (18-72) 12/04/16 11:54 Lipase 20 Units/L (8-78) 12/04/16 11:54 - ABG ABG results: PT/INR, D-dimer PT 14.1 Seconds (9.4-12.1) H 12/04/16 11:54
[2016-12-05 13:12] LABS: Albumin 2.4 g/dL (3.5-5.0); Calcium 8.7 mg/dL (8.6-10.8); Potassium 4.6 mEq/L (3.5-4.5)
[2016-12-05 13:14] LABS: % Iron Saturation 7 % (15-50); Iron 19 mcg/dL (50-170); Transferrin 193 mg/dL (180-382)
[2016-12-05 13:34] LABS: Hepatitis B Surface Antigen Nonreactive (Nonreactive)
[2016-12-05] MEDS: Albumin 25% 25gram/100mL 25 GM/100 ML IV.SOLN IVC SCH ×2 (16:55→22:40)
--- NOTE | 2016-12-05 17:03 | Procedure Note ---
Date of procedure: 12/05/16 Pre-op diagnosis: abdominal distention secondary to ascites Post-op diagnosis: same Procedure: paracentesis Written consent was obtained from the patient after explaining risks and benefits of the procedure. The left lateral abdomen were visualized using ultrasound. The bowel, peritoneal space, and fluid was well visualized. The area to be injected was marked with a pen. The patient's skin was cleaned and draped in the usual sterile fashion. The skin was then anesthetized using 1% Lidocaine, as was the peritoneal lining. Mayank in the skin was made in the skin using a scalpel. The catheter was inserted into the patient's abdomen past the peritoneum. The needle was removed, and 7L of clear straw colored ascitic fluid was removed from the patient's abdomen. Throughout the entire procedure, the patient remained stable and had no complications. Patient tolerated the procedure well. 75g of 25% albumin will be infused after the procedure. Anesthesia: local Surgeon: Enmanuel Olson Scrap Stripper Hand: Narinder Lacy Estimated blood loss (cc): 2 IV fluids (cc): 0 Urine output (cc): 0 Pathology: other (ascitic fluid) Condition: stable Disposition: floor
[2016-12-05 17:46] LABS: RBC,Peritoneal Fluid < 0.002 M/mcL
[2016-12-05 17:52] LABS: Amylase,Peritoneal Fluid 5 Units/L (No Ref Range); Glucose,Peritoneal Fluid 178 mg/dL (No Ref Range); LDH,Peritoneal Fluid 47 Units/L (No Ref Range)
[2016-12-05] MEDS: ceFAZolin 1,000 MG in D5% in Water (Mini-Bag+) 100 ML IVPB SCH (18:36)
[2016-12-05] MEDS: *HR* Heparin 5,000 UNIT/ML VIAL SQ SCH (18:36)
[2016-12-05 18:58] LABS: Basophils,Peritoneal Fluid 0 %; Eosinophils,Peritoneal Fluid 0 %
[2016-12-05 18:59] LABS: Appearance of Peritoneal Fl CLEAR (Clear)
[2016-12-05 20:15] LABS: Protein/Creatinine Ratio,Urine 1.69 mg/mg (0-0.20)
[2016-12-05] MEDS: rOPINIRole 1 MG TABLET PO SCH (20:27)
[2016-12-05] MEDS: traZODone 50 MG TABLET PO SCH (20:35)
[2016-12-06] MEDS: Albumin 25% 25gram/100mL 25 GM/100 ML IV.SOLN IVC SCH ×2 (02:00→04:26)
[2016-12-06] MEDS: ceFAZolin 1,000 MG in D5% in Water (Mini-Bag+) 100 ML IVPB SCH ×2 (06:05→16:40)
[2016-12-06] MEDS: *HR* Heparin 5,000 UNIT/ML VIAL SQ SCH ×2 (06:11→16:42)
[2016-12-06 06:16] LABS: Calcium 8.7 mg/dL (8.6-10.8); Potassium 4.8 mEq/L (3.5-4.5)
[2016-12-06] MEDS: Folic Acid 1 MG TABLET PO SCH (08:34)
[2016-12-06] MEDS: Insulin LISPRO 300 UNITS/3 ML VIAL SQ SCH ×4 (08:34→22:00)
[2016-12-06] MEDS: *HR* Amiodarone 200 MG TABLET PO SCH (08:34)
[2016-12-06] MEDS: Isosorbide MONOnitrate (24 HR) 60 MG TAB.ER.24H PO SCH (08:34)
[2016-12-06] MEDS: Bumetanide 1 MG TABLET PO SCH (08:34)
--- NOTE | 2016-12-06 09:59 | Nephrology Progress Note ---
Date of Encounter: 12/06/16 Time of Encounter: 09:57 - Assessment and Plan (1) Acute kidney injury superimposed on chronic kidney disease Current Visit: Yes Status: Acute NYDIA superimposed on CKD IV. Patient had 7L of fluid removed via paracentesis yesterday. She states she is feeling much better today. Ascites and edema slightly improved. 3/2 UOP 250, however may not be accurate as zabala catheter was inserted mid- day. Intake 780 with net positive balance of 530 3/3 UOP so far is 450; weight 86.6kg (increased from 79.2kg 3/2) 3/2 Phos 3, Iron 19, % saturation 7, transferrin 193, albumin 2.4, PTH 365.6 3/3 SCr 3.19, GFR 14, Na 137, K 4.8, Ca 8.7, digoxin level 3.2 AST, ALT, Alk phos WNL, Hep Bs Antigen, Hep A, Hep C nonreactive Urine Cr 108 Protein/Cr Ratio 1.69 Urine total protein 183 Renal US: Atrophic echogenic appearance of the bilateral kidneys is most consistent with chronic medical renal disease. There is a 1.5 cm simple right renal cyst. There is no evidence of a renal calculus or hydronephrosis. Plan: -Change BUMEX to 4mg IV BID from PO. Hold AM dose if Cr >3.2 in the morning. -Obtain ECHO, vitamin D level and ferretin -Continue STRICT I/Os and daily weights -2L fluid restriction -Nutrition consult for hypoalbuinemia -Continue to avoid nephrotoxic agents and utilize renal protective dosing (2) CKD (chronic kidney disease) stage 4, GFR 15-29 ml/min Current Visit: No Status: Chronic (3) Ascites Current Visit: Yes Status: Acute Qualifiers: Ascites type: other type Qualified Code(s): R18.8 - Other ascites (4) Edema extremities Current Visit: Yes Status: Acute (5) Proteinuria Current Visit: Yes Status: Acute Qualifiers: Proteinuria type: unspecified Qualified Code(s): R80.9 - Proteinuria, unspecified (6) HTN (hypertension) Current Visit: Yes Status: Acute Qualifiers: Hypertension type: essential hypertension Qualified Code(s): I10 - Essential (primary) hypertension (7) Digoxin toxicity Current Visit: Yes Status: Acute Qualifiers: Encounter type: initial encounter Injury intent: accidental or unintentional Qualified Code(s): T46.0X1A - Poisoning by cardiac-stimulant glycosides and drugs of similar action, accidental (unintentional), initial encounter (8) Anemia Current Visit: No Status: Chronic Qualifiers: Anemia type: unspecified type Qualified Code(s): D64.9 - Anemia, unspecified Subjective Principal diagnosis: NYDIA, CKD IV, Ascites, Edema, HTN Interval history: Patient seen and examined today. Patient appears much more comfortable compared to yesterday. She notes that her breathing is easier and her abdomen does not feel as tender. She denies ARNOLD, dizziness, visual changes, cp. Objective - Vital Signs Vital signs: Vital Signs Temp Pulse Resp BP Pulse Ox 12/06/16 06:30 98.1 F 75 16 164/54 94 L 12/06/16 04:12 98.2 F 48 20 127/53 94 L 12/05/16 23:36 98.6 F 45 18 140/53 92 L 12/05/16 20:11 98.4 F 46 20 169/63 95 12/05/16 15:42 98.3 F 54 18 140/55 92 L 12/05/16 11:46 98.3 F 47 16 129/58 91 L Intake and Output 12/05/16 12/06/16 12/06/16 23:59 07:59 15:59 Intake Total 320 / 320 100 / 100 240 / 240 Output Total 250 / 250 450 / 450 0 / 0 Balance 70 / 70 -350 / -350 240 / 240 Intake: IV Fluids 200 / 200 100 / 100 Flexbumin 25 gm In 100 ml 100 / 100 100 / 100 @ 30 mls/hr IVC .Q3H20M NIURKA Rx#:[id number] Ancef 1,000 MG In 100 / 100 Dextrose 5% (Minibag+) 100 ML 100 ML @ 200 mls/ hr IVPB Q12HR NIURKA Rx#: [id number] Oral 120 / 120 240 / 240 Output: Urine 250 / 250 0 / 0 Catheter 450 / 450 Other: Meal Dinner Breakfast Percent of Meal Consumed 90% 100% Weight 86.636 kg Blood Glucose* 182 150 Patient Weight 12/06/16 23:59 Weight 86.636 kg - General Appearance General appearance: Present: well-developed, well-nourished, obese EENT: Present: ATNC, PERRL, mucous membranes moist Neck: Present: no JVD, supple Respiratory: Present: wheezing, rhonchi Cardiology: Present: holosystolic murmur, edema, regular rate, regular rhythm Additional Comments: Pitting edema of b/l LE, trace edema of b/l hands Gastrointestinal: Present: normoactive bowel sounds, tenderness (epigastric, RUQ ), obese, distended Additional Comments: abdominal ascites slightly improved from yesterday. Abdomen is softer. Fluid wave and caput medusae still present. Patient tender to palpation of epigastric and RUQ regions. Integumentary: Present: no rash, warm and dry. Absent: erythema Neurologic: Present: no focal deficit, alert and oriented x3 Musculoskeletal: Present: deformities, no erythema, no cyanosis, no clubbing Psychiatric: Present: mood/affect appropriate, cooperative - Lab 12/05/16 05:49 12/06/16 05:29 Most recent lab results Calcium 8.7 mg/dL (8.6-10.8) 12/06/16 05:29 Phosphorus 3.0 mg/dL (2.3-4.7) 12/05/16 12:45 Urine Creatinine 108 mg/dL 12/05/16 18:00 Urine Total Protein 183 mg/dL (1-14) H 12/05/16 18:00 - Imaging Kidney/bladder ultrasound: report reviewed Additional Comments: Retroperitoneum Ultrasound 12/05/16 14:00 IMPRESSION: 1. Atrophic echogenic appearance of the bilateral kidneys is most consistent with chronic medical renal disease. There is a 1.5 cm simple right renal cyst. There is no evidence of a renal calculus or hydronephrosis. 2. Zabala catheter within a collapsed urinary bladder, limiting its evaluation. The urinary bladder is grossly normal. D/ / Garland Vee MD / Garland Vee MD Interpreting Provider: Garland Vee MD - Allied health notes Allied health notes reviewed: nursing Consult Discharge Plan - Plan Referrals: Dima Juarez MD [Primary Care Provider] - 12/13/16 11:30 am (Please follow up as schedule...)
[2016-12-06] MEDS: *HR* HYDROcodone/Acet 5/325 mg TABLET PO PRN ×2 (10:32→22:45)
[2016-12-06 11:54] LABS: Hepatitis A Antibody IgM Nonreactive (Nonreactive); Hepatitis B Core IgM Nonreactive (Nonreactive); Hepatitis C Virus Antibody Nonreactive (Nonreactive)
--- NOTE | 2016-12-06 16:04 | Internal Med Progress Note ---
<RahulEnmanuel soriano - Last Filed: 12/06/16 16:28> Date of Encounter: 12/06/16 Time of Encounter: 14:00 - Assessment and plan (1) Cellulitis Current Visit: Yes Status: Acute Assessment and plan: acute encephalopathy, likely secondary to cellulitis. currently resolved. Patient has wound present on right lower extremity that is erythematous and warm She had this wound for about two weeks when hitting her schin on a coardboard box. Ancef day 2 Qualifiers: Site of cellulitis: extremity Site of cellulitis of extremity: lower extremity Laterality: right Qualified Code(s): L03.115 - Cellulitis of right lower limb (2) Ascites Current Visit: Yes Status: Acute Assessment and plan: Patient recently had appointment with Dr. Hernandez on 11/21/16 and was referred to him for evaluation of her ascites. CT scan without contrast from that week showed large amount of ascitic fluid. Ultrasound of liver showed nodular contour of liver, concerning for cirrhosis. She had paracentesis ordered by Dr. Hernandez but never had it done due to hospitalization. GI on board. Appreciate recommendations from Dr. Hernandez. Plan for paracentesis later this afternoon with 50g albumin supplementation afterwards. Patient does not report history of alcohol abuse. She states that her abdominal distention and shortness of breath had started recently, about a month ago. 12/06/16 s/p paracentesis, which was done yesterday, 7L total fluid removed. Patient was given 75g albumin afterwards. Ascitic fluid cultures pending. SAAG=1.3, indicating portal hypertension, no SBP Qualifiers: Ascites type: other type Qualified Code(s): R18.8 - Other ascites (3) Iron deficiency anemia Current Visit: No Status: Acute Assessment and plan: Hg remains stable. Continue to monitor. Per GI, plan is for EGD/colonoscopy on Friday. NPO midnight friday night for EGD. If patient agreeable to colonoscopy: clear liquid diet friday, no red or purple dye. NPO a midnight friday night. If unable to tolerate NuLytely, use miralax prep. If not clear by 6am give 2 tap water enemas- Per GI. Qualifiers: Iron deficiency anemia type: unspecified iron deficiency Qualified Code(s) : D50.9 - Iron deficiency anemia, unspecified (4) CHF (congestive heart failure) Current Visit: Yes Status: Chronic Assessment and plan: last echo from 02/21/16 showed LVEF 60%, mild concentric LVH, mild centricular diastolic dysfunction. normal RV structure and function. Aortic valve was not well visualized but appeared mild-moderately thickened/ calcified. valve morphology was not well visualized. mild-moderate aortic stenosis. Patient is allergic to lasix, continue home med Bumex. Qualifiers: Congestive heart failure type: unspecified congestive heart failure type Congestive heart failure chronicity: unspecified congestive heart failure chronicity Qualified Code(s): I50.9 - Heart failure, unspecified (5) CKD (chronic kidney disease) Current Visit: Yes Status: Acute Assessment and plan: Cr is 3.19 Retroperitoneal ultrasound from 12/04/16 showed atrophic echogenic appearance of he bilateral kidneys, consistent with chronical renal disease. 1.5 cm simple right renal cyst. no evidence of renal calculus or hydronephrosis, normal urinary bladder. Continue to monitor. Avoid nephrotoxic agents. Qualifiers: Chronic kidney disease stage: stage 4 (severe) Qualified Code(s): N18.4 - Chronic kidney disease, stage 4 (severe) (6) Elevated troponin Current Visit: Yes Status: Acute Assessment and plan: Trended down. Patient is chest pain free. (7) Mental status change Current Visit: No Status: Resolved Assessment and plan: Resolved. CUrrently patient is alert and oriented x3, mentating properly. Qualifiers: Altered mental status type: unspecified Qualified Code(s): R41.82 - Altered mental status, unspecified (8) Diabetes mellitus Current Visit: No Status: Chronic Assessment and plan: Surgars controlled within acceptable limits at this time. Continue low dose sliding scale insulin with ACHS accuchecks. continue fluid restricted diabetic diet. Patient's A1C was 6.5 Qualifiers: Diabetes mellitus type: type 2 Diabetes mellitus complication status: with kidney complications Diabetes mellitus complication detail: with chronic kidney disease Diabetes mellitus termite control representative insulin use: unspecified jail insulin use status Chronic kidney disease stage: stage 4 (severe) Qualified Code(s): E11.22 - Type 2 diabetes mellitus with diabetic chronic kidney disease ; N18.4 - Chronic kidney disease, stage 4 (severe) (9) DVT prophylaxis Current Visit: Yes Status: Acute Assessment and plan: Heparin SQ - Subjective Interval history: 81 year old female evaluated at bedside. Patient is alert and oriented x3, mild distress from pain. She states she had one episode of vomiting earlier this morning and got a dose of zofran. - Constitutional Vitals: Temp Pulse Resp BP Pulse Ox 97.9 F 45 16 149/52 97 12/06/16 15:40 12/06/16 15:40 12/06/16 15:40 12/06/16 15:40 12/06/16 15:40 General appearance: Present: mild distress (mild distress from pain. ), A&O X 3 , pleasant, answers questions appropriately - Head Head exam: Present: atraumatic, normocephalic - Neck Neck exam general surgery: Present: supple, trachea midline - Respiratory Respiratory exam: Present: wheezes - Cardiovascular Cardiovascular exam: Present: systolic murmur - GI/Abdominal GI/Abdominal exam: Present: normal bowel sounds, soft. Absent: distended, tenderness - Extremities Exam Extremities exam: Present: pedal edema (+1 pitting edema. ) Additional comments: sore present on right lower extremity anteriorly. - Neurological Exam Neurological exam: Present: alert, oriented X3, no focal deficits - Psychiatric Psychiatric exam: Present: normal affect, normal mood Internal Medicine: Result - Labs CBC & Chem 7: 12/05/16 05:49 12/06/16 05:29 Labs: BMP 12/06/16 05:29 Sodium 137 Potassium 4.8 H Chloride 103 Carbon Dioxide 25 BUN 39 H Creatinine 3.19 H Glucose 115 H Calcium 8.7 - ABG Interpretation ABG results: PT/INR, D-dimer PT 14.1 Seconds (9.4-12.1) H 12/04/16 11:54 - Impressions Impressions Retroperitoneum Ultrasound 12/05/16 14:00 IMPRESSION: 1. Atrophic echogenic appearance of the bilateral kidneys is most consistent with chronic medical renal disease. There is a 1.5 cm simple right renal cyst. There is no evidence of a renal calculus or hydronephrosis. 2. Sauceda catheter within a collapsed urinary bladder, limiting its evaluation. The urinary bladder is grossly normal. D/ / Garland Vee MD / Garland Vee MD Interpreting Provider: Garland Vee MD Consult Discharge Plan - Plan Referrals: Dima Juarez MD [Primary Care Provider] - 12/13/16 11:30 am (Please follow up as schedule...) <Ang Dennis H - Last Filed: 12/06/16 16:31> - Constitutional Vitals: Temp Pulse Resp BP Pulse Ox 97.9 F 45 16 149/52 97 12/06/16 15:40 12/06/16 15:40 12/06/16 15:40 12/06/16 15:40 12/06/16 15:40 Internal Medicine: Result - Labs CBC & Chem 7: 12/05/16 05:49 12/06/16 05:29 Labs: BMP 12/06/16 05:29 Sodium 137 Potassium 4.8 H Chloride 103 Carbon Dioxide 25 BUN 39 H Creatinine 3.19 H Glucose 115 H Calcium 8.7 - ABG Interpretation ABG results: PT/INR, D-dimer PT 14.1 Seconds (9.4-12.1) H 12/04/16 11:54 - Impressions Impressions Retroperitoneum Ultrasound 12/05/16 14:00 IMPRESSION: 1. Atrophic echogenic appearance of the bilateral kidneys is most consistent with chronic medical renal disease. There is a 1.5 cm simple right renal cyst. There is no evidence of a renal calculus or hydronephrosis. 2. Sauceda catheter within a collapsed urinary bladder, limiting its evaluation. The urinary bladder is grossly normal. D/ / Garland Vee MD / Garland Vee MD Interpreting Provider: Garland Vee MD - Attending Attestation acute metabolic encephalopathy, likely secondary to cellulitis. I examined this patient and my medical decision-making was reviewed with the MOLD SHEET CLEANER/PA/Advanced Practice Nurse/Resident Physician. I agree with the documented findings, disposition and treatment plan as described except to the extent set forth below.
[2016-12-06] MEDS: Bumetanide 1 MG/4 ML VIAL IVP SCH (16:41)
[2016-12-06] MEDS: rOPINIRole 1 MG TABLET PO SCH (20:05)
[2016-12-06] MEDS: traZODone 50 MG TABLET PO SCH (20:05)
[2016-12-07] MEDS: ceFAZolin 1,000 MG in D5% in Water (Mini-Bag+) 100 ML IVPB SCH ×2 (05:38→18:57)
[2016-12-07] MEDS: *HR* Heparin 5,000 UNIT/ML VIAL SQ SCH ×2 (05:54→18:09)
[2016-12-07 06:45] LABS: Calcium 9.3 mg/dL (8.6-10.8)
[2016-12-07] MEDS: Bumetanide 1 MG/4 ML VIAL IVP SCH (07:48)
[2016-12-07 07:52] LABS: Basophils # 0.1 K/mcL (0.0-0.2); Basophils % 0.6 %; Eosinophils # 0.5 K/mcL (0.0-0.6); Eosinophils % 4.4 %; Hematocrit 32.1 % (35.3-44.9); Hemoglobin 9.3 g/dL (11.5-15.4); Immature Granulocytes % 0.3 % (0-4); Immature Platelets 5.2 % (1.1-6.1); Lymphocytes # 1.6 K/mcL (0.6-4.6); Lymphocytes % 15.7 %; Mean Corpuscular Volume 79.5 fL (83.0-100.0); Mean Platelet Volume 10.7 fL (9.4-12.4); Monocytes # 0.8 K/mcL (0.0-1.3); Monocytes % 7.4 %; Neutrophils # 7.4 K/mcL (1.6-8.9); Platelet Count 295 K/mcL (140-400); Red Blood Count 4.04 M/mcL (3.82-4.97); Red Cell Distribution Width 17.4 % (11.5-14.5); Segmented Neutrophils % 71.6 %
--- NOTE | 2016-12-07 08:11 | ECHO - Doppler Report ---
Echocardiogram Name: Muriel Jeong Date of Study: 12/06/2016 Date: 1940 Ht: 63.0 in Medical Record#: [id number] Age: 76 Wt: 191.0 lb Gender: Female BSA: 1.9 Order #: [id number] Location: [facility] Room #: [id number] Reading Physician: Fox Botello MD, [facility] Nutritionists: Melissa Centeno Ordering Physician: Nathalia Burton DO Primary Physician: Dima Juarez MD Indications: Edema, Ascites Impressions: Moderate aortic stenosis. Peak and mean gradients are 51 and 28 mmHg, respectively. LVEF 55-60%. Mild concentric left ventricular hypertrophy. PFO likely present Severely dilated left atrium. Left Ventricular Wall Motion: Rest Echo Findings All wall segments showed normal motion. Findings: Study Quality * Technically adequate exam. Right Ventricle * Normal right ventricular structure and function. Aorta * Normally sized aortic root. Pericardium * The pericardium appears normal. Mitral Valve * Mildly calcified mitral valve leaflets. * Trace mitral regurgitation. * No mitral stenosis. Left Atrium * Severely dilated left atrium. Tricuspid Valve * No tricuspid stenosis. * Estimated RVSP is 38 mmHg. * Estimated RA pressure is 3-5 mmHg. * Mild pulmonary hypertension. * Mild tricuspid regurgitation. Aortic Valve * Mildly calcified aortic valve leaflets. * Aortic valve leaflets are restricted. * Trace aortic regurgitation. * Peak and mean gradients are 51 mmHg, respectively. * Moderate aortic stenosis. Left Ventricle * LVEF 55-60%. * Mild concentric left ventricular hypertrophy. * Indeterminate diastolic function. Right Atrium * Mildly dilated right atrium. Interatrial Septum * PFO likely present History Hypertension Diabetes Hypercholesteremia History of Smoking Years 55 Packs 0.5 Family History of CAD History of CAD/PTCA Myocardial Infarction 02/21/2016 a Previous Echo was performed. Measurements: BP: 149/ 52 2D Normal Values RVIDd: 2.90 cm <2.7 cm IVSd: 1.30 cm 0.6 - 1.0 cm LVIDd: 5.50 cm 3.7 - 5.6 cm LVPWd: 1.30 cm 0.6 - 1.1 cm LVIDs: 3.60 cm 1.5 - 3.6 cm AO: 2.60 cm < 4.0 cm LA: 5.10 cm 2.0 - 4.0cm %FS: 34.50 cm >25 % LVOT Diam: 2.00 cm LA volume: 97 Mitral Valve Peak E:1.10 m/sec Peak A:.76 m/sec E/A Ratio:1.4 Peak E' Lat Dc:14 cm/s Peak E' Med Dc:5.17 cm/s E/E' Lat Ratio:7.9 E/E' Med Ratio:21.3 LVOT Peak Dc:1.16 m/sec Mean Dc:.77 m/sec Peak Grad:5.00 mmHg Mean Grad:3.00 mmHg Aortic Valve Peak Dc:3.57 m/sec Mean Cd:2.51 m/sec Peak Grad:51.00 mmHg Mean Grad:28.00 mmHg Valve Area:.94 cm2 AI pressure Half-time: 1040.00 msec Tricuspid Valve TV Regurg Peak Grad: 38.00mmHg TV Regurg Peak Dc: 3.09m/sec Updated by Harrison Fernandes DO, FACEugenio, SARAH KNIGHT on 12/07/2016 8:06:48 AM electronically signed on 12/07/2016 8:07:27 AM with status of Final Wall Motion Fink: 1=Normal, 2=Hypokinesis, 3=Akinesis, 4=Dyskinesis, 5=Aneurysmal, 6=Hyperkinetic, X=Not Visualized (Blank)=Missing
[2016-12-07 08:33] LABS: Digoxin 2.6 ng/mL (0.8-2.0)
--- NOTE | 2016-12-07 09:16 | Internal Med Progress Note ---
<Enmanuel Olson - Last Filed: 12/07/16 09:13> Date of Encounter: 12/07/16 Time of Encounter: 09:00 - Assessment and plan (1) Cellulitis Current Visit: Yes Status: Acute Assessment and plan: acute encephalopathy, likely secondary to cellulitis. currently resolved. Patient has wound present on right lower extremity that is erythematous and warm She had this wound for about two weeks when hitting her schin on a coardboard box. Ancef day 3 Qualifiers: Site of cellulitis: extremity Site of cellulitis of extremity: lower extremity Laterality: right Qualified Code(s): L03.115 - Cellulitis of right lower limb (2) Ascites Current Visit: Yes Status: Acute Assessment and plan: Patient recently had appointment with Dr. Hernandez on 11/21/16 and was referred to him for evaluation of her ascites. CT scan without contrast from that week showed large amount of ascitic fluid. Ultrasound of liver showed nodular contour of liver, concerning for cirrhosis. She had paracentesis ordered by Dr. Hernandez but never had it done due to hospitalization. GI on board. Appreciate recommendations from Dr. Hernandez. Patient does not report history of alcohol abuse. She states that her abdominal distention and shortness of breath had started recently, about a month ago. Hepatitis Panel negative. 12/06/16 s/p paracentesis, which was done yesterday, 7L total fluid removed. Patient was given 75g albumin afterwards. Ascitic fluid cultures pending. SAAG=1.3, indicating portal hypertension, no SBP 12/07/16: Patient's abdomen is starting to become distended and firm again with fluid. Will continue to monitor. Appreciate nephrology recommendations. Continue with IV diuresis with Bumex. Qualifiers: Ascites type: other type Qualified Code(s): R18.8 - Other ascites (3) Bradycardia Current Visit: Yes Status: Acute Assessment and plan: Patient's HR has been in 40s last two days. Continue to hold Toprol XL and Digoxin. Digoxin level today was 2.6. COntinue to monitor. will re check Digoxin level tomorrow morning. (4) Iron deficiency anemia Current Visit: No Status: Acute Assessment and plan: Hg remains stable. Continue to monitor. Per GI, plan is for EGD/colonoscopy on Friday. NPO midnight friday night. Patient is currently agreable for colonoscopy: clear liquid diet friday, no red or purple dye. NPO a midnight friday night. If unable to tolerate NuLytely, use miralax prep. If not clear by 6am give 2 tap water enemas- Per GI. Qualifiers: Iron deficiency anemia type: unspecified iron deficiency Qualified Code(s) : D50.9 - Iron deficiency anemia, unspecified (5) CHF (congestive heart failure) Current Visit: Yes Status: Chronic Assessment and plan: last echo from 02/21/16 showed LVEF 60%, mild concentric LVH, mild centricular diastolic dysfunction. normal RV structure and function. Aortic valve was not well visualized but appeared mild-moderately thickened/ calcified. valve morphology was not well visualized. mild-moderate aortic stenosis. Patient is allergic to lasix, continue IV bumex. Qualifiers: Congestive heart failure type: unspecified congestive heart failure type Congestive heart failure chronicity: unspecified congestive heart failure chronicity Qualified Code(s): I50.9 - Heart failure, unspecified (6) CKD (chronic kidney disease) Current Visit: Yes Status: Acute Assessment and plan: Cr is 3.37, increased from 3.19 yesterday Retroperitoneal ultrasound from 12/04/16 showed atrophic echogenic appearance of he bilateral kidneys, consistent with chronical renal disease. 1.5 cm simple right renal cyst. no evidence of renal calculus or hydronephrosis, normal urinary bladder. Continue to monitor. Avoid nephrotoxic agents as much as possible. nephrology is following. They have converted her Bumex to IV and monitor renal response to diuresis. NYDIA workup pending. Qualifiers: Chronic kidney disease stage: stage 4 (severe) Qualified Code(s): N18.4 - Chronic kidney disease, stage 4 (severe) (7) Elevated troponin Current Visit: Yes Status: Acute Assessment and plan: Trended down. Patient is chest pain free. (8) Diabetes mellitus Current Visit: No Status: Chronic Assessment and plan: Surgars controlled within acceptable limits at this time. Continue low dose sliding scale insulin with ACHS accuchecks. continue fluid restricted diabetic diet. Patient's A1C was 6.5 Qualifiers: Diabetes mellitus type: type 2 Diabetes mellitus complication status: with kidney complications Diabetes mellitus complication detail: with chronic kidney disease Diabetes mellitus assisted insulin use: unspecified skidder insulin use status Chronic kidney disease stage: stage 4 (severe) Qualified Code(s): E11.22 - Type 2 diabetes mellitus with diabetic chronic kidney disease ; N18.4 - Chronic kidney disease, stage 4 (severe) (9) DVT prophylaxis Current Visit: Yes Status: Acute Assessment and plan: Heparin SQ - Subjective Interval history: 81 year old female evaluated at bedside. Patient is sitting up in bed watching TV. She denies current nausea, vomiting, diarrhea, fever chills. Patient states she is agreeable to both EGD/colonoscopy Friday. - Constitutional Vitals: Temp Pulse Resp BP Pulse Ox 98.3 F 47 18 123/56 98 12/07/16 04:08 12/07/16 04:08 12/07/16 04:08 12/07/16 04:08 12/07/16 04:08 General appearance: Present: A&O X 3, pleasant, answers questions appropriately - Head Head exam: Present: atraumatic, normocephalic - Neck Neck exam general surgery: Present: supple, trachea midline - Respiratory Respiratory exam: Present: rhonchi, wheezes - Cardiovascular Cardiovascular exam: Present: bradycardia, systolic murmur - GI/Abdominal GI/Abdominal exam: Present: distended, firm, normal bowel sounds, tenderness ( tenderness in epigastric area. ) - Extremities Exam Extremities exam: Present: pedal edema (+2 pitting edema bilateral lower extremities. ). Absent: cyanotic - Skin Additional comments: Right lower extremity anterior wound present. Internal Medicine: Result - Labs CBC & Chem 7: 12/07/16 07:02 12/07/16 05:48 Labs: Short CBC 12/07/16 Range/Units 07:02 WBC 10.3 (4.3-11.1) K/mcL Hgb 9.3 L (11.5-15.4) g/dL Hct 32.1 L (35.3-44.9) % Plt Count 295 (140-400) K/mcL Neutrophils # 7.4 (1.6-8.9) K/mcL BMP 12/07/16 05:48 Sodium 137 Potassium 5.0 H Chloride 102 Carbon Dioxide 25 BUN 42 H Creatinine 3.37 H Glucose 123 H Calcium 9.3 - ABG Interpretation ABG results: PT/INR, D-dimer PT 14.1 Seconds (9.4-12.1) H 12/04/16 11:54 Consult Discharge Plan - Plan Referrals: Dima Juarez MD [Primary Care Provider] - 12/13/16 11:30 am (Please follow up as schedule...) <Ang Dennis H - Last Filed: 12/07/16 13:31> - Constitutional Vitals: Temp Pulse Resp BP Pulse Ox 98.3 F 47 18 123/56 98 12/07/16 04:08 12/07/16 04:08 12/07/16 04:08 12/07/16 04:08 12/07/16 09:45 Internal Medicine: Result - Labs CBC & Chem 7: 12/07/16 07:02 12/07/16 05:48 Labs: Short CBC 12/07/16 Range/Units 07:02 WBC 10.3 (4.3-11.1) K/mcL Hgb 9.3 L (11.5-15.4) g/dL Hct 32.1 L (35.3-44.9) % Plt Count 295 (140-400) K/mcL Neutrophils # 7.4 (1.6-8.9) K/mcL BMP 12/07/16 05:48 Sodium 137 Potassium 5.0 H Chloride 102 Carbon Dioxide 25 BUN 42 H Creatinine 3.37 H Glucose 123 H Calcium 9.3 - ABG Interpretation ABG results: PT/INR, D-dimer PT 14.1 Seconds (9.4-12.1) H 12/04/16 11:54 - Attending Attestation Acute chronic renal failure stage IV Hold Bumex EGD and Colonoscopy on Friday I examined this patient and my medical decision-making was reviewed with the FOOD SERVICE LEAD/PA/Advanced Practice Nurse/Resident Physician. I agree with the documented findings, disposition and treatment plan as described except to the extent set forth below.
[2016-12-07] MEDS: Folic Acid 1 MG TABLET PO SCH (09:24)
[2016-12-07] MEDS: Insulin LISPRO 300 UNITS/3 ML VIAL SQ SCH ×4 (09:25→21:41)
--- NOTE | 2016-12-07 09:41 | Nephrology Progress Note ---
Date of Encounter: 12/07/16 Time of Encounter: 09:41 - Assessment and Plan (1) Acute kidney injury superimposed on chronic kidney disease Current Visit: Yes Status: Acute mild NYDIA likely hemodynamic from fluid shifts. Will hold diuretics for now and monitor for improvement. Patient with baseline CKD Stage 4. (2) Ascites Current Visit: Yes Status: Acute S/p paracentesis. Continue diuretics. Qualifiers: Ascites type: other type Qualified Code(s): R18.8 - Other ascites (3) Microcytic anemia Current Visit: Yes Status: Acute Plan for EGD/colonoscopy by GI on Friday. Iron deficiency anemia. Will order IV iron replacement. Check vitamin B12 and folate. (4) HTN (hypertension) Current Visit: Yes Status: Acute Continue current medications. Qualifiers: Hypertension type: essential hypertension Qualified Code(s): I10 - Essential (primary) hypertension (5) Hepatic cirrhosis Current Visit: Yes Status: Acute Per GI Qualifiers: Ascites presence: with ascites Qualified Code(s): K74.60 - Unspecified cirrhosis of liver Subjective Principal diagnosis: NYDIA, CKD IV, Ascites, Edema, HTN Interval history: Patient seen and evaluated. Patient without new complaint. She feels better. Her ROS otherwise is stable. Her appetite is good. Objective - Vital Signs Vital signs: Vital Signs Temp Pulse Resp BP Pulse Ox 12/07/16 04:08 98.3 F 47 18 123/56 98 12/06/16 23:57 97.8 F 47 16 141/55 97 Intake and Output 12/06/16 12/07/16 12/07/16 23:59 07:59 15:59 Intake Total 100 / 100 Output Total 600 / 600 Balance -500 / -500 Intake: IV Fluids 100 / 100 Ancef 1,000 MG In 100 / 100 Dextrose 5% (Minibag+) 100 ML 100 ML @ 200 mls/ hr IVPB Q12HR NIURKA Rx#: [id number] Output: Catheter 600 / 600 Other: Weight 86.4 kg Blood Glucose* 155 Patient Weight 12/07/16 23:59 Weight 86.4 kg - General Appearance General appearance: Present: well-developed, well-nourished EENT: Present: ATNC Neck: Present: supple Respiratory: Present: clear Cardiology: Present: edema (2+edema), regular rate, regular rhythm Gastrointestinal: Present: normoactive bowel sounds, no tenderness, distended Integumentary: Present: warm and dry Neurologic: Present: alert and oriented x3 Musculoskeletal: Present: no cyanosis Psychiatric: Present: mood/affect appropriate - Lab 12/07/16 07:02 12/07/16 05:48 Most recent lab results Calcium 9.3 mg/dL (8.6-10.8) 12/07/16 05:48 Phosphorus 3.0 mg/dL (2.3-4.7) 12/05/16 12:45 Urine Creatinine 108 mg/dL 12/05/16 18:00 Urine Total Protein 183 mg/dL (1-14) H 12/05/16 18:00 Consult Discharge Plan - Plan Referrals: Dima Juarez MD [Primary Care Provider] - 12/13/16 11:30 am (Please follow up as schedule...)
[2016-12-07] MEDS ORDERED: Iron Dextran Complex 1,000 MG in 0.9 % Sodium Chloride 500 ML IVPB ONE (10:00)
[2016-12-07] MEDS: Isosorbide MONOnitrate (24 HR) 60 MG TAB.ER.24H PO SCH (10:28)
[2016-12-07] MEDS: *HR* Amiodarone 200 MG TABLET PO SCH (10:28)
--- NOTE | 2016-12-07 10:57 | Internal Med Progress Note ---
Date of Encounter: 12/07/16 Time of Encounter: 10:55 - Time Spent With Patient Greater than 35 minutes - Subjective Interval history: She is very weak, was not able to be discharged yesterday as his precertification did not go through. Denies any chest pain, complains of mild shortness of breath, fevers overnight, no abdominal pain, no diarrhea - Constitutional Vitals: Temp Pulse Resp BP Pulse Ox 98.3 F 47 18 123/56 98 12/07/16 04:08 12/07/16 04:08 12/07/16 04:08 12/07/16 04:08 12/07/16 04:08 General appearance: Present: A&O X 2, pleasant, answers questions appropriately - Head Head exam: Present: atraumatic, normocephalic - Eye Eye exam: Present: PERRL, conjuntiva pink, sclera anicteric Pupils: Present: PERRL - Neck Neck exam general surgery: Present: supple, trachea midline. Absent: lymphadenopathy - Respiratory Respiratory exam: Present: decreased breath sounds (Very diminished breath sounds), CTAB. Absent: accessory muscle use, rales, rhonchi, wheezes - Cardiovascular Cardiovascular exam: Present: RRR, +S1, +S2. Absent: diastolic murmur, gallop, rubs, systolic murmur - GI/Abdominal GI/Abdominal exam: Present: distended (Urostomy bag in place), normal bowel sounds, soft, no peritoneal signs. Absent: tenderness - Extremities Exam Extremities exam: Present: warm, radial pulses palpable and symetrical. Absent : calf tenderness, cyanotic, pedal edema - Neurological Exam Neurological exam: Present: CN II-XII intact, no focal deficits. Absent: oriented X3 (Disoriented in time), pronater drift, facial droop, speech deficit - Skin Skin exam: Present: dry, intact Internal Medicine: Result - Labs CBC & Chem 7: 12/07/16 07:02 12/07/16 05:48 Labs: Short CBC 12/07/16 Range/Units 07:02 WBC 10.3 (4.3-11.1) K/mcL Hgb 9.3 L (11.5-15.4) g/dL Hct 32.1 L (35.3-44.9) % Plt Count 295 (140-400) K/mcL Neutrophils # 7.4 (1.6-8.9) K/mcL BMP 12/07/16 05:48 Sodium 137 Potassium 5.0 H Chloride 102 Carbon Dioxide 25 BUN 42 H Creatinine 3.37 H Glucose 123 H Calcium 9.3 - ABG Interpretation ABG results: PT/INR, D-dimer PT 14.1 Seconds (9.4-12.1) H 12/04/16 11:54 Consult Discharge Plan - Plan Referrals: Dima Juarez MD [Primary Care Provider] - 12/13/16 11:30 am (Please follow up as schedule...)
[2016-12-07] MEDS: rOPINIRole 1 MG TABLET PO SCH (21:44)
[2016-12-07] MEDS: traZODone 50 MG TABLET PO SCH (21:44)
[2016-12-07 22:16] LABS: Kappa Qnt Free Light Chains 9.49 mg/dL (0.33-1.94); Lambda Qnt Free Light Chains 7.86 mg/dL (0.57-2.63)
[2016-12-08 00:19] LABS: Alpha 2 Globulin (PEP) 1.04 g/dL (0.48-1.05); Beta Globulin (PEP) 0.77 g/dL (0.48-1.10)
[2016-12-08] MEDS: *HR* HYDROcodone/Acet 5/325 mg TABLET PO PRN (04:14)
[2016-12-08] MEDS: ceFAZolin 1,000 MG in D5% in Water (Mini-Bag+) 100 ML IVPB SCH ×2 (05:38→18:26)
[2016-12-08] MEDS: *HR* Heparin 5,000 UNIT/ML VIAL SQ SCH ×2 (05:47→18:25)
[2016-12-08 06:45] LABS: Basophils # 0.1 K/mcL (0.0-0.2); Basophils % 0.5 %; Eosinophils # 0.4 K/mcL (0.0-0.6); Eosinophils % 3.7 %; Hematocrit 31.2 % (35.3-44.9); Hemoglobin 9.2 g/dL (11.5-15.4); Immature Granulocytes % 0.6 % (0-4); Lymphocytes # 1.3 K/mcL (0.6-4.6); Lymphocytes % 12.6 %; Mean Corpuscular HGB Conc 29.5 g/dL (31.6-35.5); Mean Platelet Volume 11.1 fL (9.4-12.4); Monocytes # 0.8 K/mcL (0.0-1.3); Monocytes % 7.3 %; Neutrophils # 7.8 K/mcL (1.6-8.9); Platelet Count 258 K/mcL (140-400); Red Cell Distribution Width 17.3 % (11.5-14.5); Segmented Neutrophils % 75.3 %
[2016-12-08] MEDS: Insulin LISPRO 300 UNITS/3 ML VIAL SQ SCH ×4 (07:50→21:57)
[2016-12-08] MEDS: *HR* Amiodarone 200 MG TABLET PO SCH (07:58)
[2016-12-08] MEDS: Acetaminophen 325 MG TABLET PO PRN (07:58)
[2016-12-08] MEDS: Isosorbide MONOnitrate (24 HR) 60 MG TAB.ER.24H PO SCH (07:59)
[2016-12-08] MEDS: Folic Acid 1 MG TABLET PO SCH (07:59)
--- NOTE | 2016-12-08 09:44 | Nephrology Progress Note ---
Date of Encounter: 12/08/16 Time of Encounter: 09:42 - Assessment and Plan (1) Acute kidney injury superimposed on chronic kidney disease Current Visit: Yes Status: Acute mild NYDIA likely hemodynamic from fluid shifts. Improved with holding diuretics. Will restart bumex at a lower dose and monitor for renal response. Patient with baseline CKD Stage 4. (2) Ascites Current Visit: Yes Status: Acute S/p paracentesis. Continue diuretics. Qualifiers: Ascites type: other type Qualified Code(s): R18.8 - Other ascites (3) Microcytic anemia Current Visit: Yes Status: Acute Plan for EGD/colonoscopy by GI on Friday. Iron deficiency anemia. Iron dextran given 12/07/16. Check vitamin B12 and folate. (4) HTN (hypertension) Current Visit: Yes Status: Acute Continue current medications. Blood pressure is stable. Qualifiers: Hypertension type: essential hypertension Qualified Code(s): I10 - Essential (primary) hypertension (5) Hepatic cirrhosis Current Visit: Yes Status: Acute Per GI Qualifiers: Ascites presence: with ascites Qualified Code(s): K74.60 - Unspecified cirrhosis of liver Subjective Principal diagnosis: NYDIA, CKD IV, Ascites, Edema, HTN Interval history: Patient seen and evaluated. Patient without new complaint. She feels better. Her ROS otherwise is stable. Her appetite is good. She has the prep for her colonoscopy in her room. ` Objective - Vital Signs Vital signs: Vital Signs Temp Pulse Resp BP Pulse Ox 12/08/16 08:02 65 97 12/08/16 07:00 98.2 F 50 18 133/47 96 12/08/16 04:17 96 12/08/16 03:13 98.8 F 52 18 147/51 97 12/07/16 23:54 98.8 F 52 18 157/49 97 12/07/16 19:39 98.7 F 51 18 155/51 95 12/07/16 09:45 98 Intake and Output 12/07/16 12/08/16 12/08/16 23:59 07:59 15:59 Intake Total 1037 / 1037 337 / 337 600 / 600 Output Total 850 / 850 Balance 1037 / 1037 -513 / -513 600 / 600 Intake: IV Fluids 620 / 620 100 / 100 Ancef 1,000 MG In 100 / 100 100 / 100 Dextrose 5% (Minibag+) 100 ML 100 ML @ 200 mls/ hr IVPB Q12HR NIURKA Rx#: [id number] Dexferrum 1,000 MG In 0.9 520 / 520 % Sodium Chloride 500 ML @ 104 mls/hr IVPB ONCE ONE Rx#:[id number] Oral 417 / 417 237 / 237 600 / 600 Output: Catheter 850 / 850 Other: Meal Dinner Breakfast Percent of Meal Consumed 95% Weight 87.6 kg Blood Glucose* 159 134 Patient Weight 12/08/16 23:59 Weight 87.6 kg - General Appearance General appearance: Present: well-developed, well-nourished EENT: Present: ATNC Neck: Present: supple Respiratory: Present: clear Cardiology: Present: edema, regular rate, regular rhythm Gastrointestinal: Present: normoactive bowel sounds, no tenderness Integumentary: Present: warm and dry Neurologic: Present: alert and oriented x3 Musculoskeletal: Present: no cyanosis Psychiatric: Present: mood/affect appropriate - Lab 12/08/16 06:11 12/08/16 06:11 Most recent lab results Calcium 9.0 mg/dL (8.6-10.8) 12/08/16 06:11 Phosphorus 3.0 mg/dL (2.3-4.7) 12/05/16 12:45 Urine Creatinine 108 mg/dL 12/05/16 18:00 Urine Total Protein 183 mg/dL (1-14) H 12/05/16 18:00 Consult Discharge Plan - Plan Referrals: Dima Juarez MD [Primary Care Provider] - 12/13/16 11:30 am (Please follow up as schedule...)
[2016-12-08] MEDS: Bumetanide 1 MG/4 ML VIAL IVP SCH (10:34)
--- NOTE | 2016-12-08 11:11 | Internal Med Progress Note ---
<Enmanuel Olson - Last Filed: 12/08/16 14:26> Date of Encounter: 12/08/16 Time of Encounter: 10:45 - Assessment and plan (1) Cellulitis Current Visit: Yes Status: Acute Assessment and plan: acute encephalopathy, likely secondary to cellulitis. currently resolved. Patient has wound present on right lower extremity that is erythematous and warm She had this wound for about two weeks when hitting her schin on a coardboard box. Ancef day 4 Qualifiers: Site of cellulitis: extremity Site of cellulitis of extremity: lower extremity Laterality: right Qualified Code(s): L03.115 - Cellulitis of right lower limb (2) Ascites Current Visit: Yes Status: Acute Assessment and plan: Patient recently had appointment with Dr. Hernandez on 11/21/16 and was referred to him for evaluation of her ascites. CT scan without contrast from that week showed large amount of ascitic fluid. Ultrasound of liver showed nodular contour of liver, concerning for cirrhosis. She had paracentesis ordered by Dr. Hernandez but never had it done due to hospitalization. GI on board. Appreciate recommendations from Dr. Hernandez. Patient does not report history of alcohol abuse. She states that her abdominal distention and shortness of breath had started recently, about a month ago. Hepatitis Panel negative. 12/06/16 s/p paracentesis, which was done yesterday, 7L total fluid removed. Patient was given 75g albumin afterwards. Ascitic fluid cultures pending. SAAG=1.3, indicating portal hypertension, no SBP 12/07/16: Patient's abdomen is starting to become distended and firm again with fluid. Will continue to monitor. Appreciate nephrology recommendations. Continue with IV diuresis with Bumex. 12/08/16 Abdomen is significantly more distended from yesterday. Appreciate GI recommendations. Qualifiers: Ascites type: other type Qualified Code(s): R18.8 - Other ascites (3) Bradycardia Current Visit: Yes Status: Acute Assessment and plan: Patient's HR has been in 40s last two days. Continue to hold Toprol XL and Digoxin. Digoxin level today was 2.6. COntinue to monitor. will re check Digoxin level tomorrow morning. 12/08 Patient's HR is improved, in 60s today. Digoxin level this morning was 2. Etiology likely secondary to Digoxin toxicity in setting of CKD. will resume Toprol XL. will re check digoxin level tomorrow morning. Consider decreasing home dose of digoxin upon discharge. (4) Iron deficiency anemia Current Visit: No Status: Acute Assessment and plan: Hg remains stable. Continue to monitor. Per GI, plan is for EGD/colonoscopy tomorrow, NPO after midnight. Patient is currently agreable for colonoscopy: clear liquid diet today, no red or purple dye. NPO a midnight friday night. If unable to tolerate NuLytely, use miralax prep. If not clear by 6am give 2 tap water enemas- Per GI.- Nurse notified of this plan. Qualifiers: Iron deficiency anemia type: unspecified iron deficiency Qualified Code(s) : D50.9 - Iron deficiency anemia, unspecified (5) CHF (congestive heart failure) Current Visit: Yes Status: Chronic Assessment and plan: last echo from 02/21/16 showed LVEF 60%, mild concentric LVH, mild centricular diastolic dysfunction. normal RV structure and function. Aortic valve was not well visualized but appeared mild-moderately thickened/ calcified. valve morphology was not well visualized. mild-moderate aortic stenosis. Patient is allergic to lasix, continue IV bumex. Qualifiers: Congestive heart failure type: unspecified congestive heart failure type Congestive heart failure chronicity: unspecified congestive heart failure chronicity Qualified Code(s): I50.9 - Heart failure, unspecified (6) CKD (chronic kidney disease) Current Visit: Yes Status: Acute Assessment and plan: Cr is 3.27, stable Retroperitoneal ultrasound from 12/04/16 showed atrophic echogenic appearance of he bilateral kidneys, consistent with chronic renal disease. 1.5 cm simple right renal cyst. no evidence of renal calculus or hydronephrosis, normal urinary bladder. Continue to monitor. Avoid nephrotoxic agents as much as possible. nephrology is following. She is on Bumex IV 2mg daily Qualifiers: Chronic kidney disease stage: stage 4 (severe) Qualified Code(s): N18.4 - Chronic kidney disease, stage 4 (severe) (7) Elevated troponin Current Visit: Yes Status: Acute Assessment and plan: Trended down. Patient is chest pain free. (8) Diabetes mellitus Current Visit: No Status: Chronic Assessment and plan: Surgars controlled within acceptable limits at this time. Continue low dose sliding scale insulin with ACHS accuchecks. continue fluid restricted diabetic diet. Patient's A1C was 6.5 Qualifiers: Diabetes mellitus type: type 2 Diabetes mellitus complication status: with kidney complications Diabetes mellitus complication detail: with chronic kidney disease Diabetes mellitus assisted insulin use: unspecified dedicated intermodal truck driver insulin use status Chronic kidney disease stage: stage 4 (severe) Qualified Code(s): E11.22 - Type 2 diabetes mellitus with diabetic chronic kidney disease ; N18.4 - Chronic kidney disease, stage 4 (severe) (9) DVT prophylaxis Current Visit: Yes Status: Acute Assessment and plan: Heparin SQ - Subjective Interval history: 81 year old female evaluated at bedside. She denies nausea, vomiting, diarrhea, fever, chills. Patient is complaining of soreness on her bottom. She also states that she feels a lot of pressure in her abdomen from ascites. Other than this, she has no complaints. - Constitutional Vitals: Temp Pulse Resp BP Pulse Ox 98.2 F 65 18 133/47 97 12/08/16 07:00 12/08/16 08:02 12/08/16 07:00 12/08/16 07:00 12/08/16 08:02 General appearance: Present: A&O X 3, pleasant, answers questions appropriately - Head Head exam: Present: atraumatic, normocephalic - Neck Neck exam general surgery: Present: supple, trachea midline - Respiratory Additional comments: mild crackles heard on lower lobes bilaterally. - Cardiovascular Cardiovascular exam: Present: systolic murmur - GI/Abdominal GI/Abdominal exam: Present: distended, firm, normal bowel sounds Additional comments: Abdomen is quickly starting to become distended again with ascites. - Extremities Exam Extremities exam: Absent: cyanotic, pedal edema - Neurological Exam Neurological exam: Present: alert, oriented X3, no focal deficits Internal Medicine: Result - Labs CBC & Chem 7: 12/08/16 06:11 12/08/16 06:11 Labs: Short CBC 12/08/16 Range/Units 06:11 WBC 10.4 (4.3-11.1) K/mcL Hgb 9.2 L (11.5-15.4) g/dL Hct 31.2 L (35.3-44.9) % Plt Count 258 (140-400) K/mcL Neutrophils # 7.8 (1.6-8.9) K/mcL [facility] 12/08/16 06:11 Sodium 136 Potassium 5.0 H Chloride 102 Carbon Dioxide 25 BUN 45 H Creatinine 3.27 H Glucose 134 H Calcium 9.0 - ABG Interpretation ABG results: PT/INR, D-dimer PT 14.1 Seconds (9.4-12.1) H 12/04/16 11:54 Consult Discharge Plan - Plan Referrals: Dima Juarez MD [Primary Care Provider] - 12/13/16 11:30 am (Please follow up as schedule...) <Ang Dennis H - Last Filed: 12/08/16 14:42> - Constitutional Vitals: Temp Pulse Resp BP Pulse Ox 97.9 F 74 16 182/46 95 12/08/16 11:37 12/08/16 11:37 12/08/16 11:37 12/08/16 11:37 12/08/16 11:37 Internal Medicine: Result - Labs CBC & Chem 7: 12/08/16 06:11 12/08/16 06:11 Labs: Short CBC 12/08/16 Range/Units 06:11 WBC 10.4 (4.3-11.1) K/mcL Hgb 9.2 L (11.5-15.4) g/dL Hct 31.2 L (35.3-44.9) % Plt Count 258 (140-400) K/mcL Neutrophils # 7.8 (1.6-8.9) K/mcL [facility] 12/08/16 06:11 Sodium 136 Potassium 5.0 H Chloride 102 Carbon Dioxide 25 BUN 45 H Creatinine 3.27 H Glucose 134 H Calcium 9.0 - ABG Interpretation ABG results: PT/INR, D-dimer PT 14.1 Seconds (9.4-12.1) H 12/04/16 11:54 - Attending Attestation Continue Ancef May consider to repeat paracentesis in the morning if worse I examined this patient and my medical decision-making was reviewed with the LIVING NURSE/PA/Advanced Practice Nurse/Resident Physician. I agree with the documented findings, disposition and treatment plan as described except to the extent set forth below.
[2016-12-08 14:33] LABS: Folate 15.4 ng/mL (7.0-31.4)
[2016-12-08] MEDS: Metoprolol XL (24 HR) Succ 25 MG TAB.ER.24H PO SCH (15:39)
[2016-12-08] MEDS ORDERED: SODIUM CHLORIDE/NAHCO3/KCL/PEG 4,000 ML SOLN.RECON PO ONE (16:00)
[2016-12-08 17:52] LABS: Complement Component 3 124 mg/dL (88-201)
[2016-12-08 17:53] LABS: Complement Component 4 37 mg/dL (10-40)
[2016-12-08] MEDS: traZODone 50 MG TABLET PO SCH (22:33)
[2016-12-08] MEDS: rOPINIRole 1 MG TABLET PO SCH (22:33)
[2016-12-09] MEDS: *HR* Heparin 5,000 UNIT/ML VIAL SQ SCH ×2 (05:43→17:10)
[2016-12-09] MEDS: ceFAZolin 1,000 MG in D5% in Water (Mini-Bag+) 100 ML IVPB SCH (05:43)
[2016-12-09 07:45] LABS: ANA IgG by ELISA NONE DETECTED (None Detected)
[2016-12-09 07:46] LABS: Myeloperoxidase Ab 0 AU/mL (0-19); Serine Protease-3 Antibody 2 AU/mL (0-19)
[2016-12-09 07:50] LABS: Basophils # 0.1 K/mcL (0.0-0.2); Basophils % 0.8 %; Eosinophils # 0.3 K/mcL (0.0-0.6); Eosinophils % 2.6 %; Hematocrit 31.6 % (35.3-44.9); Hemoglobin 9.7 g/dL (11.5-15.4); Immature Granulocytes % 0.4 % (0-4); Lymphocytes # 1.4 K/mcL (0.6-4.6); Lymphocytes % 10.9 %; Mean Corpuscular HGB Conc 30.7 g/dL (31.6-35.5); Mean Corpuscular Hemoglobin 23.7 pg (28.0-33.3); Mean Corpuscular Volume 77.1 fL (83.0-100.0); Mean Platelet Volume 10.9 fL (9.4-12.4); Monocytes # 0.8 K/mcL (0.0-1.3); Monocytes % 6.4 %; Neutrophils # 9.9 K/mcL (1.6-8.9); Platelet Count 332 K/mcL (140-400); Red Cell Distribution Width 17.3 % (11.5-14.5); Segmented Neutrophils % 78.9 %
[2016-12-09 07:59] LABS: IFE Reflexed IFE Done; Immunoglobulin A 261 mg/dL (68-408); Immunoglobulin G 947 mg/dL (768-1632); Immunoglobulin M 67 mg/dL (35-263)
[2016-12-09 08:09] LABS: Calcium 9.4 mg/dL (8.6-10.8); Potassium 4.8 mEq/L (3.5-4.5)
[2016-12-09] MEDS: Insulin LISPRO 300 UNITS/3 ML VIAL SQ SCH ×4 (08:15→20:33)
[2016-12-09] MEDS: Isosorbide MONOnitrate (24 HR) 60 MG TAB.ER.24H PO SCH (08:34)
[2016-12-09] MEDS: *HR* Amiodarone 200 MG TABLET PO SCH (08:34)
[2016-12-09] MEDS: Bumetanide 1 MG/4 ML VIAL IVP SCH ×2 (08:34→17:10)
[2016-12-09] MEDS: Folic Acid 1 MG TABLET PO SCH (08:38)
[2016-12-09] MEDS: Metoprolol XL (24 HR) Succ 25 MG TAB.ER.24H PO SCH (08:38)
--- NOTE | 2016-12-09 10:01 | Internal Med Progress Note ---
<Enmanuel Olson - Last Filed: 12/09/16 14:02> Date of Encounter: 12/09/16 Time of Encounter: 09:50 - Assessment and plan (1) Cellulitis Current Visit: Yes Status: Acute Assessment and plan: acute encephalopathy, likely secondary to cellulitis. currently resolved. Patient has wound present on right lower extremity that is erythematous and warm She had this wound for about two weeks when hitting her schin on a coardboard box. Ancef day 5 Qualifiers: Site of cellulitis: extremity Site of cellulitis of extremity: lower extremity Laterality: right Qualified Code(s): L03.115 - Cellulitis of right lower limb (2) Ascites Current Visit: Yes Status: Acute Assessment and plan: Patient recently had appointment with Dr. Hernandez on 11/21/16 and was referred to him for evaluation of her ascites. CT scan without contrast from that week showed large amount of ascitic fluid. Ultrasound of liver showed nodular contour of liver, concerning for cirrhosis. She had paracentesis ordered by Dr. Hernandez but never had it done due to hospitalization. GI on board. Appreciate recommendations from Dr. Hernandez. Patient does not report history of alcohol abuse. She states that her abdominal distention and shortness of breath had started recently, about a month ago. Hepatitis Panel negative. 12/06/16 s/p paracentesis, which was done yesterday, 7L total fluid removed. Patient was given 75g albumin afterwards. Ascitic fluid cultures pending. SAAG=1.3, indicating portal hypertension, no SBP 12/07/16: Patient's abdomen is starting to become distended and firm again with fluid. Will continue to monitor. Appreciate nephrology recommendations. Continue with IV diuresis with Bumex. 12/08/16 Abdomen is significantly more distended from yesterday. Appreciate GI recommendations. 12/09 Consult to interventional radiology for paracentesis Monday 12/11. Please supplement with albumin afterwards. INR for that morning ordered. This was done per nephrology, as they are making changes to her diuretics and would like to wait an extra day before doing paracentesis. 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 Qualifiers: Ascites type: other type Qualified Code(s): R18.8 - Other ascites (3) Bradycardia Current Visit: Yes Status: Acute Assessment and plan: Patient's HR has been in 40s last two days. Continue to hold Toprol XL and Digoxin. Digoxin level today was 2.6. COntinue to monitor. will re check Digoxin level tomorrow morning. 12/08 Patient's HR is improved, in 60s today. Digoxin level this morning was 2. Etiology likely secondary to Digoxin toxicity in setting of CKD. will resume Toprol XL. will re check digoxin level tomorrow morning. Consider decreasing home dose of digoxin upon discharge. 12/09 Patient's HR in 70s today. COntinue Toprol XL TOday's digoxin level is still pending. (4) Iron deficiency anemia Current Visit: No Status: Acute Assessment and plan: Hg remains stable. B12, folate levels normal. Patient had IV iron infusion last week. Continue to monitor. Per GI, plan is for EGD/colonoscopy today. patient had some vomiting with her bowel prep, but her bowel movement this morning was clear. Qualifiers: Iron deficiency anemia type: unspecified iron deficiency Qualified Code(s) : D50.9 - Iron deficiency anemia, unspecified (5) CHF (congestive heart failure) Current Visit: Yes Status: Chronic Assessment and plan: last echo from 02/21/16 showed LVEF 60%, mild concentric LVH, mild centricular diastolic dysfunction. normal RV structure and function. Aortic valve was not well visualized but appeared mild-moderately thickened/ calcified. valve morphology was not well visualized. mild-moderate aortic stenosis. Patient is allergic to lasix, continue IV bumex. Qualifiers: Congestive heart failure type: unspecified congestive heart failure type Congestive heart failure chronicity: unspecified congestive heart failure chronicity Qualified Code(s): I50.9 - Heart failure, unspecified (6) CKD (chronic kidney disease) Current Visit: Yes Status: Acute Assessment and plan: Cr is 2.73, stable Retroperitoneal ultrasound from 12/04/16 showed atrophic echogenic appearance of he bilateral kidneys, consistent with chronic renal disease. 1.5 cm simple right renal cyst. no evidence of renal calculus or hydronephrosis, normal urinary bladder. Continue to monitor. Avoid nephrotoxic agents as much as possible. nephrology is following. She is on Bumex IV 2mg daily Qualifiers: Chronic kidney disease stage: stage 4 (severe) Qualified Code(s): N18.4 - Chronic kidney disease, stage 4 (severe) (7) Elevated troponin Current Visit: Yes Status: Acute Assessment and plan: Trended down. Patient is chest pain free. (8) Diabetes mellitus Current Visit: No Status: Chronic Assessment and plan: Surgars controlled within acceptable limits at this time. Continue low dose sliding scale insulin with ACHS accuchecks. continue fluid restricted diabetic diet. Patient's A1C was 6.5 Qualifiers: Diabetes mellitus type: type 2 Diabetes mellitus complication status: with kidney complications Diabetes mellitus complication detail: with chronic kidney disease Diabetes mellitus halfway insulin use: unspecified halfway insulin use status Chronic kidney disease stage: stage 4 (severe) Qualified Code(s): E11.22 - Type 2 diabetes mellitus with diabetic chronic kidney disease ; N18.4 - Chronic kidney disease, stage 4 (severe) (9) DVT prophylaxis Current Visit: Yes Status: Acute Assessment and plan: Heparin SQ - Subjective Interval history: 81 year old female evaluated at bedside. She states that last night during her bowel prep she got really sick and had multiple episodes of vomiting. Other than that, she tolerated her bowel prep well and her bowel movement was clear this morning. - Constitutional Vitals: Temp Pulse Resp BP Pulse Ox 98.1 F 67 16 157/62 100 12/09/16 04:36 12/09/16 04:36 12/09/16 04:36 12/09/16 04:36 12/09/16 04:36 General appearance: Present: A&O X 3, pleasant, answers questions appropriately - Head Head exam: Present: atraumatic, normocephalic - ENT ENT exam: Present: mucous membranes moist - Neck Neck exam general surgery: Present: supple, trachea midline - Respiratory Respiratory exam: Present: wheezes Additional comments: significant wheezing present on left lung. - Cardiovascular Cardiovascular exam: Present: systolic murmur - GI/Abdominal GI/Abdominal exam: Present: distended, firm, normal bowel sounds, soft Additional comments: abdomen filled with ascites again. - Extremities Exam Extremities exam: Present: pedal edema Additional comments: +2 pedal edema on lower extremities bilaterally. - Neurological Exam Neurological exam: Present: alert, oriented X3, no focal deficits. Absent: facial droop, speech deficit - Skin Skin exam: Absent: cyanosis, rash Additional comments: wound on right anterior schin looks better. Internal Medicine: Result - Labs CBC & Chem 7: 12/09/16 07:08 12/09/16 07:08 Labs: Short CBC 12/09/16 Range/Units 07:08 WBC 12.6 H (4.3-11.1) K/mcL Hgb 9.7 L (11.5-15.4) g/dL Hct 31.6 L (35.3-44.9) % Plt Count 332 (140-400) K/mcL Neutrophils # 9.9 H (1.6-8.9) K/mcL BMP 12/09/16 07:08 Sodium 135 L Potassium 4.8 H Chloride 101 Carbon Dioxide 24 BUN 42 H Creatinine 2.73 H Glucose 127 H Calcium 9.4 - ABG Interpretation ABG results: PT/INR, D-dimer PT 14.1 Seconds (9.4-12.1) H 12/04/16 11:54 Consult Discharge Plan - Plan Referrals: Dima Juarez MD [Primary Care Provider] - 12/13/16 11:30 am (Please follow up as schedule...) <Ang Dennis H - Last Filed: 12/09/16 15:13> - Constitutional Vitals: Temp Pulse Resp BP Pulse Ox 98.6 F 59 18 158/55 98 12/09/16 13:14 12/09/16 13:14 12/09/16 13:14 12/09/16 13:14 12/09/16 13:14 Internal Medicine: Result - Labs CBC & Chem 7: 12/09/16 07:08 12/09/16 07:08 Labs: Short CBC 12/09/16 Range/Units 07:08 WBC 12.6 H (4.3-11.1) K/mcL Hgb 9.7 L (11.5-15.4) g/dL Hct 31.6 L (35.3-44.9) % Plt Count 332 (140-400) K/mcL Neutrophils # 9.9 H (1.6-8.9) K/mcL BMP 12/09/16 07:08 Sodium 135 L Potassium 4.8 H Chloride 101 Carbon Dioxide 24 BUN 42 H Creatinine 2.73 H Glucose 127 H Calcium 9.4 - ABG Interpretation ABG results: PT/INR, D-dimer PT 14.1 Seconds (9.4-12.1) H 12/04/16 11:54 - Attending Attestation EGD and colonoscopy per GI may discontinue ANcef I examined this patient and my medical decision-making was reviewed with the FURNACE LOADER/PA/Advanced Practice Nurse/Resident Physician. I agree with the documented findings, disposition and treatment plan as described except to the extent set forth below.
[2016-12-09] MEDS: Cyanocobalamin (B-12) 1,000 MCG/ML VIAL IM SCH (10:29)
--- NOTE | 2016-12-09 11:16 | Nephrology Progress Note ---
Date of Encounter: 12/09/16 Time of Encounter: 11:14 - Assessment and Plan (1) Acute kidney injury superimposed on chronic kidney disease Current Visit: Yes Status: Acute NYDIA superimposed on CKD IV. Patient had 7L of fluid removed via paracentesis 12/05. Ascites is worsening over the weekend, IR consulted for paracentesis. Patient continues to have b/l LE edema. 12/08 UOP 1500, Intake 2036 with net positive balance of 537 3 UOP so far is 550; weight 90.9kg (increased from 79.2kg 12/05) 12/05 Phos 3, Iron 19, % saturation 7, transferrin 193, albumin 2.4, PTH 365.6 12/09 SCr 2.73, GFR 17, Na 135, K 4.8, digoxin level 2 AST, ALT, Alk phos WNL, Hep Bs Antigen, Hep A, Hep C nonreactive Urine Cr 108 Protein/Cr Ratio 1.69 Urine total protein 183 Renal US: Atrophic echogenic appearance of the bilateral kidneys is most consistent with chronic medical renal disease. There is a 1.5 cm simple right renal cyst. There is no evidence of a renal calculus or hydronephrosis. Plan: -Increase Bumex 2mg to BID -Start spironolactone 25mg PO daily. Patient requires this for diuresis of the ascites. May need to give kayexelate tomorrow. Recommend holding off on paracentesis until friday so that there is time to adjust to the new diuretic regimen before pulling high volume off abdomen. -Continue STRICT I/Os and daily weights -2L fluid restriction -Continue to avoid nephrotoxic agents and utilize renal protective dosing (2) CKD (chronic kidney disease) stage 4, GFR 15-29 ml/min Current Visit: No Status: Chronic (3) Ascites Current Visit: Yes Status: Acute Qualifiers: Ascites type: other type Qualified Code(s): R18.8 - Other ascites (4) Edema extremities Current Visit: Yes Status: Acute (5) Proteinuria Current Visit: Yes Status: Acute Qualifiers: Proteinuria type: unspecified Qualified Code(s): R80.9 - Proteinuria, unspecified (6) HTN (hypertension) Current Visit: Yes Status: Acute Qualifiers: Hypertension type: essential hypertension Qualified Code(s): I10 - Essential (primary) hypertension (7) Digoxin toxicity Current Visit: Yes Status: Acute improved with holding digoxin, digoxin level 2.0 Qualifiers: Encounter type: initial encounter Injury intent: accidental or unintentional Qualified Code(s): T46.0X1A - Poisoning by cardiac-stimulant glycosides and drugs of similar action, accidental (unintentional), initial encounter (8) Microcytic anemia Current Visit: Yes Status: Acute BELL, iron dextran given 12/07/16 Vit B and Folate WNL Patient to have EGD/Colonoscopy today (9) Hepatic cirrhosis Current Visit: Yes Status: Acute per GI Qualifiers: Hepatic cirrhosis type: unspecified hepatic cirrhosis Ascites presence: with ascites Qualified Code(s): K74.60 - Unspecified cirrhosis of liver (10) Vitamin D deficiency Current Visit: Yes Status: Acute Give Ergocalciferol 50,000 Weekly for 8 weeks. Subjective Principal diagnosis: NYDIA, CKD IV, Ascites, Edema, HTN Interval history: Patient seen and examined today. Patient states that she is feeling better, but that she did not like the colon prep. She will have a colonoscopy and EGD today. Her abdomen is more distended and she states is tender. She also notes that she is cold. She denies ARNOLD, dizziness, visual changes, cp. Objective - Vital Signs Vital signs: Vital Signs Temp Pulse Resp BP Pulse Ox 12/09/16 10:05 98.7 F 74 18 177/56 99 12/09/16 04:36 98.1 F 67 16 157/62 100 12/08/16 23:28 156/70 12/08/16 22:15 174/70 12/08/16 21:55 97.5 F L 71 18 200/88 100 12/08/16 21:53 97 12/08/16 15:00 97.5 F L 56 16 176/70 100 12/08/16 11:37 97.9 F 74 16 182/46 95 Intake and Output 12/08/16 12/09/16 12/09/16 23:59 07:59 15:59 Intake Total 1100 / 1100 100 / 100 Output Total 650 / 650 300 / 300 250 / 250 Balance 450 / 450 -200 / -200 -250 / -250 Intake: IV Fluids 100 / 100 100 / 100 Ancef 1,000 MG In 100 / 100 100 / 100 Dextrose 5% (Minibag+) 100 ML 100 ML @ 200 mls/ hr IVPB Q12HR NIURKA Rx#: [id number] Oral 1000 / 1000 Output: Catheter 650 / 650 300 / 300 250 / 250 Other: Meal NPO Stool Size Moderate Moderate Stool Consistency liquid liquid Stool Color Brown Brown Yellow # Bowel Movements 1 1 Weight 90.9 kg Blood Glucose* 140 132 Patient Weight 12/09/16 23:59 Weight 90.9 kg - General Appearance General appearance: Present: well-developed, well-nourished, obese EENT: Present: ATNC, PERRL, mucous membranes moist Neck: Present: supple Respiratory: Present: wheezing, course breath sounds Cardiology: Present: edema (b/l LE), regular rate, regular rhythm Gastrointestinal: Present: normoactive bowel sounds, tenderness, distended ( caput medusae, fluid wave present) Musculoskeletal: Present: no erythema, no cyanosis, no clubbing Psychiatric: Present: mood/affect appropriate, cooperative - Lab 12/09/16 07:08 12/09/16 07:08 Most recent lab results Calcium 9.4 mg/dL (8.6-10.8) 12/09/16 07:08 Phosphorus 3.0 mg/dL (2.3-4.7) 12/05/16 12:45 Urine Creatinine 108 mg/dL 12/05/16 18:00 Urine Total Protein 183 mg/dL (1-14) H 12/05/16 18:00 - Imaging Kidney/bladder ultrasound: report reviewed Additional Comments: Retroperitoneum Ultrasound 12/05/16 14:00 IMPRESSION: 1. Atrophic echogenic appearance of the bilateral kidneys is most consistent with chronic medical renal disease. There is a 1.5 cm simple right renal cyst. There is no evidence of a renal calculus or hydronephrosis. 2. Sauceda catheter within a collapsed urinary bladder, limiting its evaluation. The urinary bladder is grossly normal. D/ / Garland Vee MD / Garland Vee MD Interpreting Provider: Garland Vee MD - Allied health notes Allied health notes reviewed: nursing Consult Discharge Plan - Plan Referrals: Dima Juarez MD [Primary Care Provider] - 12/13/16 11:30 am (Please follow up as schedule...)
[2016-12-09] MEDS: Cholecalciferol (D-3) 1,000 UNIT TABLET PO SCH (13:01)
[2016-12-09] MEDS ORDERED: *HR* LORazepam 2 MG/ML VIAL IVP ONE (14:31)
[2016-12-09] MEDS: Spironolactone 25 MG TABLET PO SCH (15:41)
[2016-12-09] MEDS: *HR* HYDROcodone/Acet 5/325 mg TABLET PO PRN (17:22)
[2016-12-09] MEDS ORDERED: *HR* FentaNYL (PF) 100 MCG/2 ML VIAL ONE (17:33)
[2016-12-09] MEDS ORDERED: *HR* Midazolam HCl 5 MG/5 ML VIAL IVP ONE (17:33)
[2016-12-09] MEDS ORDERED: Simethicone 40 MG/0.6 ML MLS IR ONE (18:01)
[2016-12-09] MEDS: *HR* Midazolam HCl 5 MG/5 ML VIAL IVP PRN ×5 (18:01→18:31)
[2016-12-09] MEDS: *HR* FentaNYL (PF) 100 MCG/2 ML VIAL IVP PRN ×4 (18:01→18:31)
[2016-12-09] MEDS ORDERED: Tetracaine/Benzocaine/Butamben 200MG/SPRAY (100SPY/BOT) MM ONE (18:01)
--- NOTE | 2016-12-09 18:01 | Pre-Sedation Evaluation ---
Pre-sedation evaluation - Pre-sedation checklist Date of procedure: 12/09/16 Procedure: EGD, Colonoscopy Recent Vitals: Last Vital Signs Temp 98.6 F 12/09/16 13:14 Pulse 59 12/09/16 13:14 Resp 18 12/09/16 13:14 BP 158/55 12/09/16 13:14 Pulse Ox 98 12/09/16 13:14 H&P (including ROS) documented in medical record: Yes Previous reaction to sedatives/anesthetics: No Dietary Status: NPO after Midnight Dentition: dentures removed ASA Classification *see protocol: CLASS III-Severe systemic disease Plan of Care: Pt appropriate candidate for procedure/moderate/conscious sedation , Risks/benefits of procedure/sedation discussed w/ patient/family
[2016-12-09] MEDS: traZODone 50 MG TABLET PO SCH (20:34)
[2016-12-09] MEDS: rOPINIRole 1 MG TABLET PO SCH (20:34)
[2016-12-10] MEDS: *HR* Heparin 5,000 UNIT/ML VIAL SQ SCH ×2 (05:55→16:59)
[2016-12-10 08:06] LABS: Phosphorous 3.2 mg/dL (2.3-4.7); Potassium 4.8 mEq/L (3.5-4.5)
[2016-12-10 08:17] LABS: Basophils # 0.1 K/mcL (0.0-0.2); Basophils % 0.7 %; Eosinophils # 0.6 K/mcL (0.0-0.6); Eosinophils % 4.8 %; Hematocrit 29.2 % (35.3-44.9); Immature Granulocytes % 0.3 % (0-4); Lymphocytes # 1.5 K/mcL (0.6-4.6); Mean Corpuscular HGB Conc 30.8 g/dL (31.6-35.5); Mean Corpuscular Hemoglobin 24.1 pg (28.0-33.3); Mean Corpuscular Volume 78.3 fL (83.0-100.0); Mean Platelet Volume 11.1 fL (9.4-12.4); Monocytes % 8.2 %; Nucleated Red Blood Cells 0.2 /100 WBC (0); Platelet Count 318 K/mcL (140-400); Red Blood Count 3.73 M/mcL (3.82-4.97); Red Cell Distribution Width 17.7 % (11.5-14.5)
[2016-12-10] MEDS: Insulin LISPRO 300 UNITS/3 ML VIAL SQ SCH ×4 (08:22→22:24)
[2016-12-10] MEDS: Metoprolol XL (24 HR) Succ 25 MG TAB.ER.24H PO SCH (09:08)
[2016-12-10] MEDS: Isosorbide MONOnitrate (24 HR) 60 MG TAB.ER.24H PO SCH (09:08)
[2016-12-10] MEDS: Cyanocobalamin (B-12) 1,000 MCG/ML VIAL IM SCH (09:08)
[2016-12-10] MEDS: Spironolactone 25 MG TABLET PO SCH (09:09)
[2016-12-10] MEDS: Folic Acid 1 MG TABLET PO SCH (09:10)
[2016-12-10] MEDS: *HR* Amiodarone 200 MG TABLET PO SCH (09:10)
[2016-12-10] MEDS: Cholecalciferol (D-3) 1,000 UNIT TABLET PO SCH ×2 (09:43→10:24)
[2016-12-10] MEDS: Bumetanide 1 MG/4 ML VIAL IVP SCH ×2 (09:43→16:59)
[2016-12-10] MEDS ORDERED: Spironolactone 25 MG TABLET PO ONE (10:25)
--- NOTE | 2016-12-10 10:30 | Nephrology Progress Note ---
Date of Encounter: 12/10/16 Time of Encounter: 11:15 - Assessment and Plan (1) Acute kidney injury superimposed on chronic kidney disease Current Visit: Yes Status: Acute NYDIA superimposed on CKD IV. Patient had 7L of fluid removed via paracentesis 12/05. Ascites is worsening over the weekend, IR consulted for paracentesis. Patient continues to have b/l LE edema. 12/09 UOP 550, Intake 100 with net NEGATIVE balance of -450 12/10 UOP so far is 900; weight 89.9kg 12/05 Phos 3, Iron 19, % saturation 7, transferrin 193, albumin 2.4, PTH 365.6 12/10 SCr 2.68, GFR 17, Na 136, K 4.8 AST, ALT, Alk phos WNL, Hep Bs Antigen, Hep A, Hep C nonreactive Urine Cr 108 Protein/Cr Ratio 1.69 Urine total protein 183 Renal US: Atrophic echogenic appearance of the bilateral kidneys is most consistent with chronic medical renal disease. There is a 1.5 cm simple right renal cyst. There is no evidence of a renal calculus or hydronephrosis. Plan: -Continue Bumex 2mg BID IV -Increase spironolactone 50mg PO daily. Potassium stable today at 4.8, continue to monitor. Patient requires this for diuresis of the ascites. May need to give kayexelate based on how potassium responds. Recommend holding off on paracentesis until friday so that there is time to adjust to the new diuretic regimen before pulling high volume off abdomen. -Continue STRICT I/Os and daily weights -2L fluid restriction -Continue to avoid nephrotoxic agents and utilize renal protective dosing (2) CKD (chronic kidney disease) stage 4, GFR 15-29 ml/min Current Visit: No Status: Chronic (3) Ascites Current Visit: Yes Status: Acute Qualifiers: Ascites type: other type Qualified Code(s): R18.8 - Other ascites (4) Edema extremities Current Visit: Yes Status: Acute (5) Proteinuria Current Visit: Yes Status: Acute Qualifiers: Proteinuria type: unspecified Qualified Code(s): R80.9 - Proteinuria, unspecified (6) HTN (hypertension) Current Visit: Yes Status: Acute Qualifiers: Hypertension type: essential hypertension Qualified Code(s): I10 - Essential (primary) hypertension (7) Digoxin toxicity Current Visit: Yes Status: Resolved improved with holding digoxin, digoxin level 2.0 Qualifiers: Encounter type: initial encounter Injury intent: accidental or unintentional Qualified Code(s): T46.0X1A - Poisoning by cardiac-stimulant glycosides and drugs of similar action, accidental (unintentional), initial encounter (8) Microcytic anemia Current Visit: Yes Status: Acute BELL, iron dextran given 12/07/16 Vit B and Folate WNL (9) Hepatic cirrhosis Current Visit: Yes Status: Acute per GI Qualifiers: Hepatic cirrhosis type: unspecified hepatic cirrhosis Ascites presence: with ascites Qualified Code(s): K74.60 - Unspecified cirrhosis of liver (10) Vitamin D deficiency Current Visit: Yes Status: Acute Give Ergocalciferol 50,000 Weekly for 8 weeks. Subjective Principal diagnosis: NYDIA, CKD IV, Ascites, Edema, HTN Interval history: Patient seen and examined today. Patient states that she is feeling better. She notes that her abdomen is not as tender today. She states her legs are tender, but improved from yesterday. She denies ARNOLD, dizziness, visual changes, cp, sob, abdominal pain. Objective - Vital Signs Vital signs: Vital Signs Temp Pulse Resp BP Pulse Ox 12/10/16 08:17 98.4 F 56 16 142/46 94 L 12/10/16 05:25 99.1 F 55 18 151/62 91 L 12/10/16 00:26 98.6 F 58 19 141/48 98 12/09/16 22:30 98.7 F 58 150/61 98 12/09/16 21:30 98.7 F 60 16 133/58 96 12/09/16 20:30 98.0 F 56 18 143/57 98 12/09/16 20:00 97.9 F 59 12 141/57 97 12/09/16 19:23 98.2 F 64 19 144/56 97 12/09/16 18:43 68 18 169/63 100 12/09/16 18:41 69 18 180/65 100 12/09/16 18:36 68 18 172/61 100 12/09/16 18:31 65 18 180/55 98 12/09/16 18:26 64 18 174/63 99 12/09/16 18:21 65 18 180/55 99 12/09/16 18:16 63 18 165/54 98 12/09/16 18:11 62 18 172/52 97 12/09/16 18:06 72 18 168/54 97 12/09/16 18:01 60 18 172/46 95 12/09/16 17:58 59 18 149/57 99 12/09/16 13:14 98.6 F 59 18 158/55 98 Intake and Output 12/09/16 12/10/16 12/10/16 23:59 07:59 15:59 Output Total 900 / 900 Balance -900 / -900 Output: Catheter 900 / 900 Other: Weight 89.9 kg Blood Glucose* 133 119 Patient Weight 12/10/16 23:59 Weight 89.9 kg - General Appearance General appearance: Present: well-developed, well-nourished, obese EENT: Present: ATNC, PERRL, mucous membranes moist Neck: Present: no JVD, supple Respiratory: Present: wheezing, course breath sounds, rhonchi Cardiology: Present: holosystolic murmur, edema (b/l LE), regular rate, regular rhythm Gastrointestinal: Present: normoactive bowel sounds, no tenderness, no guarding , distended Additional Comments: ascites, caput medusae, positive fluid wave Neurologic: Present: no focal deficit, alert and oriented x3 Additional Comments: Patient shows some confusion when discussing daily events and medical issues, but is alert and oriented to person, place, time and situation. Musculoskeletal: Present: no deformities, no erythema, no cyanosis, no clubbing Psychiatric: Present: mood/affect appropriate, cooperative - Lab 12/10/16 07:38 12/10/16 07:38 Most recent lab results Calcium 9.0 mg/dL (8.6-10.8) 12/10/16 07:38 Phosphorus 3.2 mg/dL (2.3-4.7) 12/10/16 07:38 Urine Creatinine 108 mg/dL 12/05/16 18:00 Urine Total Protein 183 mg/dL (1-14) H 12/05/16 18:00 - Imaging Kidney/bladder ultrasound: report reviewed Additional Comments: Retroperitoneum Ultrasound 12/05/16 14:00 IMPRESSION: 1. Atrophic echogenic appearance of the bilateral kidneys is most consistent with chronic medical renal disease. There is a 1.5 cm simple right renal cyst. There is no evidence of a renal calculus or hydronephrosis. 2. Sauceda catheter within a collapsed urinary bladder, limiting its evaluation. The urinary bladder is grossly normal. D/ / Garland Vee MD / Garland Vee MD Interpreting Provider: Garland Vee MD - Allied health notes Allied health notes reviewed: nursing Consult Discharge Plan - Plan Referrals: Dima Juarez MD [Primary Care Provider] - 12/13/16 11:30 am (Please follow up as schedule...)
--- NOTE | 2016-12-10 14:08 | Internal Med Progress Note ---
Date of Encounter: 12/10/16 Time of Encounter: 14:05 - Assessment and plan (1) Cellulitis Current Visit: Yes Status: Acute Assessment and plan: Day 6 Ancef Her cellulitis is very well controlled. The reason for encephalopathy is possible cellulitis. We will continue present treatment. Qualifiers: Site of cellulitis: extremity Site of cellulitis of extremity: lower extremity Laterality: right Qualified Code(s): L03.115 - Cellulitis of right lower limb (2) Ascites Current Visit: Yes Status: Acute Assessment and plan: Patient is scheduled for abdominal aspiration tomorrow Qualifiers: Ascites type: other type Qualified Code(s): R18.8 - Other ascites (3) Bradycardia Current Visit: Yes Status: Acute Assessment and plan: Known to have bradycardia. Heart rate is 50s and 60s. Serum digoxin level is therapeutic (4) CKD (chronic kidney disease) Current Visit: Yes Status: Acute Assessment and plan: Creatinine 2.68 Stable Will follow the same recommendations. Qualifiers: Chronic kidney disease stage: stage 4 (severe) Qualified Code(s): N18.4 - Chronic kidney disease, stage 4 (severe) (5) HTN (hypertension) Current Visit: Yes Status: Acute Assessment and plan: Will continue home medications Qualifiers: Hypertension type: essential hypertension Qualified Code(s): I10 - Essential (primary) hypertension (6) DVT prophylaxis Current Visit: Yes Status: Acute Assessment and plan: ICD. - Subjective Interval history: Seen and examined. Chart reviewed. The patient presented similarly better as compared to yesterday. She still has a generalized weakness and fatigue. - Constitutional Vitals: Temp Pulse Resp BP Pulse Ox 99.0 F 52 18 138/83 98 12/10/16 11:52 12/10/16 11:52 12/10/16 11:52 12/10/16 11:52 12/10/16 11:52 General appearance: Present: A&O X 3, pleasant, answers questions appropriately - Head Head exam: Present: atraumatic, normocephalic - Eye Eye exam: Present: PERRL, conjuntiva pink, sclera anicteric Pupils: Present: PERRL - Neck Neck exam general surgery: Present: supple, trachea midline. Absent: lymphadenopathy - Respiratory Respiratory exam: Present: CTAB. Absent: accessory muscle use, rales, rhonchi, wheezes - Cardiovascular Cardiovascular exam: Present: RRR, +S1, +S2. Absent: diastolic murmur, gallop, rubs, systolic murmur - GI/Abdominal GI/Abdominal exam: Present: normal bowel sounds, soft, no peritoneal signs. Absent: distended, tenderness - Extremities Exam Extremities exam: Present: warm, radial pulses palpable and symetrical. Absent : calf tenderness, cyanotic, pedal edema - Neurological Exam Neurological exam: Present: CN II-XII intact, oriented X3, no focal deficits. Absent: pronater drift, facial droop, speech deficit - Skin Skin exam: Present: dry, intact Internal Medicine: Result - Labs CBC & Chem 7: 12/10/16 07:38 12/10/16 07:38 Labs: Short CBC 12/10/16 Range/Units 07:38 WBC 12.2 H (4.3-11.1) K/mcL Hgb 9.0 L (11.5-15.4) g/dL Hct 29.2 L (35.3-44.9) % Plt Count 318 (140-400) K/mcL Neutrophils # 9.0 H (1.6-8.9) K/mcL BMP 12/10/16 07:38 Sodium 136 Potassium 4.8 H Chloride 103 Carbon Dioxide 24 BUN 43 H Creatinine 2.68 H Glucose 106 H Calcium 9.0 - ABG Interpretation ABG results: PT/INR, D-dimer PT 14.1 Seconds (9.4-12.1) H 12/04/16 11:54 Consult Discharge Plan - Plan Referrals: Dima Juarez MD [Primary Care Provider] - 12/13/16 11:30 am (Please follow up as schedule...)
[2016-12-10] MEDS: *HR* LORazepam 2 MG/ML VIAL IVP PRN (16:58)
[2016-12-10] MEDS: Acetaminophen 325 MG TABLET PO PRN (16:59)
[2016-12-10] MEDS: traZODone 50 MG TABLET PO SCH (22:21)
[2016-12-10] MEDS: rOPINIRole 1 MG TABLET PO SCH (22:21)
[2016-12-11] MEDS: *HR* Heparin 5,000 UNIT/ML VIAL SQ SCH ×2 (06:57→18:20)
[2016-12-11 07:38] LABS: INR 1.2; Prothrombin Time 12.5 Seconds (9.4-12.1)
[2016-12-11] MEDS: Cyanocobalamin (B-12) 1,000 MCG/ML VIAL IM SCH (09:00)
[2016-12-11] MEDS: Bumetanide 1 MG/4 ML VIAL IVP SCH ×2 (09:01→16:26)
[2016-12-11] MEDS: Spironolactone 25 MG TABLET PO SCH (09:01)
[2016-12-11] MEDS: Isosorbide MONOnitrate (24 HR) 60 MG TAB.ER.24H PO SCH (09:01)
[2016-12-11] MEDS: Folic Acid 1 MG TABLET PO SCH (09:02)
[2016-12-11] MEDS: Cholecalciferol (D-3) 1,000 UNIT TABLET PO SCH (09:02)
[2016-12-11] MEDS: Metoprolol XL (24 HR) Succ 25 MG TAB.ER.24H PO SCH (09:02)
[2016-12-11] MEDS: Insulin LISPRO 300 UNITS/3 ML VIAL SQ SCH ×3 (09:04→16:26)
[2016-12-11] MEDS: *HR* Amiodarone 200 MG TABLET PO SCH (09:04)
--- NOTE | 2016-12-11 10:32 | IR Procedure Note ---
Date of procedure: 12/11/16 Consent Obtained: Written consent Timeout: Correct patient and procedure verified, Correct site verified, Time out performed, Skin prep completed Local anesthetic: Lidocaine 1% Indications: Ascites Procedure Performed: Paracentesis Site/Technique: RLQ Results/Findings: Still draining. Estimated blood loss (cc): 1 Complications: None; Tolerated procedure well Post Procedure Treatment Plan: Monitoring in pts room
--- NOTE | 2016-12-11 15:43 | Event Note ---
Date of Encounter: 12/11/16 Time of Encounter: 15:42 Patient seen this am while she was getting paracentesis. She was comfortable and did not have a complaint. No BMP today. Will order one for tomorrow. Will hold diuretics today secondary to patient getting large volume paracentesis. No other changes from a renal standpoint.
--- NOTE | 2016-12-11 16:39 | Internal Med Progress Note ---
Date of Encounter: 12/11/16 Time of Encounter: 16:35 - Assessment and plan (1) Cellulitis Current Visit: Yes Status: Acute Assessment and plan: Day 6 Ancef Her cellulitis is very well controlled. The reason for encephalopathy is possible cellulitis. We will continue present treatment. 12/11/2016 cellulitis getting better. day 8 antibiotics will stop tomorrow Qualifiers: Site of cellulitis: extremity Site of cellulitis of extremity: lower extremity Laterality: right Qualified Code(s): L03.115 - Cellulitis of right lower limb (2) Ascites Current Visit: Yes Status: Acute Assessment and plan: Patient is scheduled for abdominal aspiration tomorrow 12/11/2016 S/P abdominal paracentesis morethan 5 lit removed. family and patient would like to discuss option of palliative care. Qualifiers: Ascites type: other type Qualified Code(s): R18.8 - Other ascites (3) Bradycardia Current Visit: Yes Status: Acute Assessment and plan: Known to have bradycardia. Heart rate is 50s and 60s. Serum digoxin level is therapeutic (4) CKD (chronic kidney disease) Current Visit: Yes Status: Acute Assessment and plan: Creatinine 2.68 Stable Will follow renal recommendations. Qualifiers: Chronic kidney disease stage: stage 4 (severe) Qualified Code(s): N18.4 - Chronic kidney disease, stage 4 (severe) (5) HTN (hypertension) Current Visit: Yes Status: Acute Assessment and plan: Will continue home medications Qualifiers: Hypertension type: essential hypertension Qualified Code(s): I10 - Essential (primary) hypertension (6) DVT prophylaxis Current Visit: Yes Status: Acute Assessment and plan: ICD. - Subjective Interval history: Seen and examined. Chart reviewed. The patient presented similarly better as compared to yesterday. She still has a generalized weakness and fatigue. 12/11/2016 seen and examined. no new complaints S/P drainage of ascitic fluid. patient prefers to stay one more day family at bedside would like to discuss option of palliative care - Constitutional Vitals: Temp Pulse Resp BP Pulse Ox 98.4 F 57 16 167/55 93 L 12/11/16 15:46 12/11/16 15:46 12/11/16 15:46 12/11/16 15:46 12/11/16 15:46 General appearance: Present: A&O X 3, pleasant, answers questions appropriately - Head Head exam: Present: atraumatic, normocephalic - Eye Eye exam: Present: PERRL, conjuntiva pink, sclera anicteric Pupils: Present: PERRL - Neck Neck exam general surgery: Present: supple, trachea midline. Absent: lymphadenopathy - Respiratory Respiratory exam: Present: CTAB. Absent: accessory muscle use, rales, rhonchi, wheezes - Cardiovascular Cardiovascular exam: Present: RRR, +S1, +S2. Absent: diastolic murmur, gallop, rubs, systolic murmur - GI/Abdominal GI/Abdominal exam: Present: normal bowel sounds, soft, no peritoneal signs. Absent: distended, tenderness - Extremities Exam Extremities exam: Present: warm, radial pulses palpable and symetrical. Absent : calf tenderness, cyanotic, pedal edema - Neurological Exam Neurological exam: Present: CN II-XII intact, oriented X3, no focal deficits. Absent: pronater drift, facial droop, speech deficit - Skin Skin exam: Present: dry, intact Internal Medicine: Result - Labs CBC & Chem 7: 12/10/16 07:38 12/10/16 07:38 - ABG Interpretation ABG results: PT/INR, D-dimer PT 12.5 Seconds (9.4-12.1) H 12/11/16 06:16 - Impressions Impressions Paracentesis Ultrasound 12/11/16 00:00 IMPRESSION: Successful ultrasound guided paracentesis. D/ / Carlitos Montgomery MD / Carlitos Montgomery MD Interpreting Provider: Carlitos Montgomery MD Consult Discharge Plan - Plan Referrals: Dima Juarez MD [Primary Care Provider] - 12/13/16 11:30 am (Please follow up as schedule...) Breanna Hernandez MD [Partnered Physician] - 12/17/16 2:45 pm
[2016-12-11 17:56] LABS: Albumin 2.6 g/dL (3.5-5.0); Albumin/Globulin Ratio 0.8 (1.1-2.2); Bilirubin,Total 0.3 mg/dL (0.2-1.2); Calcium 9.5 mg/dL (8.6-10.8); Globulin 3.4 g/dL (2.4-3.5); Potassium 4.8 mEq/L (3.5-4.5)
[2016-12-11] MEDS: traZODone 50 MG TABLET PO SCH (22:44)
[2016-12-11] MEDS: rOPINIRole 1 MG TABLET PO SCH (22:44)
[2016-12-12] MEDS: *HR* LORazepam 2 MG/ML VIAL IVP PRN ×2 (01:18→12:54)
[2016-12-12] MEDS: *HR* Heparin 5,000 UNIT/ML VIAL SQ SCH ×2 (06:28→16:49)
[2016-12-12 06:55] LABS: Basophils # 0.1 K/mcL (0.0-0.2); Basophils % 0.5 %; Eosinophils # 0.5 K/mcL (0.0-0.6); Eosinophils % 3.3 %; Hematocrit 33.2 % (35.3-44.9); Hemoglobin 10.2 g/dL (11.5-15.4); Immature Granulocytes % 0.6 % (0-4); Lymphocytes # 1.8 K/mcL (0.6-4.6); Lymphocytes % 12.1 %; Mean Corpuscular HGB Conc 30.7 g/dL (31.6-35.5); Mean Corpuscular Hemoglobin 24.3 pg (28.0-33.3); Monocytes % 6.8 %; Neutrophils # 11.2 K/mcL (1.6-8.9); Platelet Count 345 K/mcL (140-400); Red Cell Distribution Width 18.6 % (11.5-14.5); Segmented Neutrophils % 76.7 %
[2016-12-12] MEDS: Insulin LISPRO 300 UNITS/3 ML VIAL SQ SCH ×5 (06:57→22:50)
[2016-12-12 07:15] LABS: Calcium 9.6 mg/dL (8.6-10.8)
[2016-12-12] MEDS: Spironolactone 25 MG TABLET PO SCH (08:30)
[2016-12-12] MEDS: Folic Acid 1 MG TABLET PO SCH (08:31)
[2016-12-12] MEDS: *HR* Amiodarone 200 MG TABLET PO SCH (08:31)
[2016-12-12] MEDS: Cholecalciferol (D-3) 1,000 UNIT TABLET PO SCH (08:31)
[2016-12-12] MEDS: Isosorbide MONOnitrate (24 HR) 60 MG TAB.ER.24H PO SCH (08:31)
[2016-12-12] MEDS: Metoprolol XL (24 HR) Succ 25 MG TAB.ER.24H PO SCH (08:31)
[2016-12-12] MEDS: Cyanocobalamin (B-12) 1,000 MCG/ML VIAL IM SCH (08:31)
[2016-12-12] MEDS: Bumetanide 1 MG/4 ML VIAL IVP SCH ×2 (08:31→16:48)
--- NOTE | 2016-12-12 09:22 | Nephrology Progress Note ---
Date of Encounter: 12/12/16 Time of Encounter: 11:18 - Assessment and Plan (1) Acute kidney injury superimposed on chronic kidney disease Current Visit: Yes Status: Acute NYDIA superimposed on CKD IV. Patient had 7L of fluid removed via paracentesis 12/05. IR performed paracentesis 12/11 removing 6L. Patient continues to have b/l LE edema, but it is improved. 12/10 UOP 1575 12/11 UOP 675, paracentesis output 6000ml, 600 in, NEGATIVE balance of -75 : unclear if there is accurate charting of I/Os for the last 2 days 12/05 Phos 3, Iron 19, % saturation 7, transferrin 193, albumin 2.4, PTH 365.6 12/12 SCr 2.61, GFR 19, Na 138, K 5.0 AST, ALT, Alk phos WNL, Hep Bs Antigen, Hep A, Hep C nonreactive Urine Cr 108 Protein/Cr Ratio 1.69 Urine total protein 183 Renal US: Atrophic echogenic appearance of the bilateral kidneys is most consistent with chronic medical renal disease. There is a 1.5 cm simple right renal cyst. There is no evidence of a renal calculus or hydronephrosis. 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 3 polypoid lesions in the duodenal bulb were within normal limits. Oncology and palliative have been consulted Plan: -Resume diuretics today: Bumex 2mg BID IV, Spironolactone 50mg PO daily. SCr has returned to baseline and we would like the patient to be euvolemic or net negative as tolerated. Spironolactone maximized for management of ascites in the setting of cirrhosis. -Potassium increased today to 5.0, will give 15mg kayexalate -Continue STRICT I/Os and daily weights -2L fluid restriction -Continue to avoid nephrotoxic agents and utilize renal protective dosing (2) CKD (chronic kidney disease) stage 4, GFR 15-29 ml/min Current Visit: No Status: Chronic (3) Ascites Current Visit: Yes Status: Acute Per above, manage with spironolactone 50mg daily. Qualifiers: Ascites type: other type Qualified Code(s): R18.8 - Other ascites (4) Edema extremities Current Visit: Yes Status: Acute continues to improve with diuresis (5) Proteinuria Current Visit: Yes Status: Acute Qualifiers: Proteinuria type: unspecified Qualified Code(s): R80.9 - Proteinuria, unspecified (6) HTN (hypertension) Current Visit: Yes Status: Acute Qualifiers: Hypertension type: essential hypertension Qualified Code(s): I10 - Essential (primary) hypertension (7) Digoxin toxicity Current Visit: Yes Status: Resolved improved with holding digoxin, digoxin level 2.0 Qualifiers: Encounter type: initial encounter Injury intent: accidental or unintentional Qualified Code(s): T46.0X1A - Poisoning by cardiac-stimulant glycosides and drugs of similar action, accidental (unintentional), initial encounter (8) Microcytic anemia Current Visit: Yes Status: Acute BELL, iron dextran given 12/07/16 Vit B and Folate WNL (9) Hepatic cirrhosis Current Visit: Yes Status: Acute per GI Qualifiers: Hepatic cirrhosis type: unspecified hepatic cirrhosis Ascites presence: with ascites Qualified Code(s): K74.60 - Unspecified cirrhosis of liver (10) Vitamin D deficiency Current Visit: Yes Status: Acute Give Ergocalciferol 50,000 Weekly for 8 weeks. (11) Leukocytosis Current Visit: Yes Status: Acute Qualifiers: Leukocytosis type: unspecified Qualified Code(s): D72.829 - Elevated white blood cell count, unspecified Subjective Principal diagnosis: NYDIA, CKD IV, Ascites, Edema, HTN Interval history: Patient seen and examined today. Patient states that she is feeling better, but is tired. She denies ARNOLD, dizziness, visual changes, cp, sob, abdominal pain. Objective - Vital Signs Vital signs: Vital Signs Temp Pulse Resp BP Pulse Ox 12/12/16 08:57 97.9 F 60 20 207/69 98 12/12/16 06:47 98.4 F 64 19 179/51 90 L 12/12/16 01:50 98.2 F 62 19 181/66 96 12/11/16 19:56 97.9 F 65 17 170/53 96 12/11/16 15:46 98.4 F 57 16 167/55 93 L 12/11/16 11:07 98.8 F 55 16 140/47 96 Intake and Output 12/11/16 12/12/16 12/12/16 23:59 07:59 15:59 Intake Total 240 / 240 Balance 240 / 240 Intake: Oral 240 / 240 Other: Meal Dinner Percent of Meal Consumed 100% # Voids 1 # Bowel Movements 1 Weight 91.3 kg Blood Glucose* 174 238 Patient Weight 12/12/16 23:59 Weight 91.3 kg - General Appearance General appearance: Present: well-developed, well-nourished, obese, chronically ill EENT: Present: ATNC, PERRL, mucous membranes moist Neck: Present: no JVD, supple Respiratory: Present: clear Cardiology: Present: holosystolic murmur, no rub, no gallops, edema (b/l LE improved from yesterday) Gastrointestinal: Present: normoactive bowel sounds, no tenderness, obese, distended Additional Comments: soft ascites, distended abdomen caput medusae noted, positive fluid wave Integumentary: Present: no rash, warm and dry Additional Comments: healing scab on right dempsey without erythema Neurologic: Present: no focal deficit Additional Comments: patient drowsy today, confused when answering questions. Musculoskeletal: Present: no deformities, no erythema, no cyanosis, no clubbing Psychiatric: Present: cooperative Additional Comments: drowsy - Lab 12/12/16 06:05 12/12/16 06:05 Most recent lab results Calcium 9.6 mg/dL (8.6-10.8) 12/12/16 06:05 Phosphorus 3.2 mg/dL (2.3-4.7) 12/10/16 07:38 Urine Creatinine 108 mg/dL 12/05/16 18:00 Urine Total Protein 183 mg/dL (1-14) H 12/05/16 18:00 - Allied health notes Allied health notes reviewed: nursing Consult Discharge Plan - Plan Referrals: Dima Juarez MD [Primary Care Provider] - 12/13/16 11:30 am (Please follow up as schedule...) Breanna Hernandez MD [Partnered Physician] - 12/17/16 2:45 pm
--- NOTE | 2016-12-12 11:35 | Gastroenterology Progress Note ---
Date of Encounter: 12/12/16 Time of Encounter: 10:45 - Assessment and plan (1) Adenocarcinoma Current Visit: Yes Status: Acute Assessment and plan: EGD with polypoid lesion at the GE junction with moderately differentiated adenocarcinoma at least invading lamina propria at the GE junction, background high-grade glandular dysplasia. 3 polypoid lesions in the duodenal bulb were within normal limits. Consult Oncology. (2) Ascites Current Visit: Yes Status: Acute Assessment and plan: Because of her allergies to Lasix and also because of her CKD it will be difficult to manage her with medication, will defer to Nephrology. She is also not a candidate for TIPS because of her CHF. Pt will likely need paracentesis at least every 2 weeks. Qualifiers: Ascites type: other type Qualified Code(s): R18.8 - Other ascites (3) CKD (chronic kidney disease) Current Visit: Yes Status: Acute Assessment and plan: Management per Nephrology. Qualifiers: Chronic kidney disease stage: stage 4 (severe) Qualified Code(s): N18.4 - Chronic kidney disease, stage 4 (severe) (4) CHF (congestive heart failure) Current Visit: Yes Status: Chronic Qualifiers: Congestive heart failure type: unspecified congestive heart failure type Congestive heart failure chronicity: unspecified congestive heart failure chronicity Qualified Code(s): I50.9 - Heart failure, unspecified (5) Microcytic anemia Current Visit: Yes Status: Acute Assessment and plan: EGD with polypoid lesion at the GE junction with moderately differentiated adenocarcinoma at least invading lamina propria at the GE junction, background high-grade glandular dysplasia. Colonoscopy showed diverticulosis, internal hemorrhoids repeat in 5 years due to prep was fair. - Time Spent With Patient Total time spent is greater than 50% in coordination of care (as documented) at patient's floor/unit and/or counseling patient: - Subjective Interval history: Patient reports feeling better today and is without acute complaint at this time. She denies abdominal pain or SOB. - Constitutional Vitals: Temp Pulse Resp BP Pulse Ox 97.9 F 60 20 207/69 98 12/12/16 08:57 12/12/16 08:57 12/12/16 08:57 12/12/16 08:57 12/12/16 08:57 General appearance: Present: cooperative, A&O X 3, no acute distress, answers questions appropriately - Head Head exam: Present: atraumatic, normocephalic - Eye Eye exam: Present: normal appearance, sclera anicteric - ENT ENT exam: Present: mucous membranes moist - Neck Neck exam general surgery: Present: normal inspection, trachea midline - Respiratory Respiratory exam: Present: CTAB. Absent: rales, rhonchi - Cardiovascular Cardiovascular exam: Present: RRR, +S1, +S2 - GI/Abdominal GI/Abdominal exam: Present: distended, soft, no peritoneal signs. Absent: firm , guarding, tenderness - Rectal Rectal exam: Present: deferred - Extremities Exam Extremities exam: Present: warm - Neurological Exam Neurological exam: Present: no focal deficits - Psychiatric Psychiatric exam: Present: normal affect, normal mood - Skin Skin exam: Present: dry, intact, normal color, warm Results - Labs CBC & Chem 7: 12/12/16 06:05 12/12/16 06:05 Labs: Last Result Calcium 9.6 mg/dL (8.6-10.8) 12/12/16 06:05 Iron 19 mcg/dL (50-170) L 12/05/16 12:45 % Saturation 7 % (15-50) L 12/05/16 12:45 Transferrin 193 mg/dL (180-382) 12/05/16 12:45 Ferritin 38 ng/ml (5-204) 12/07/16 05:48 Troponin I 0.04 ng/mL (0-0.03) H* 12/04/16 23:11 Vitamin B12 330 pg/mL (213-816) 12/08/16 06:11 Folate 15.4 ng/mL (7.0-31.4) 12/08/16 06:11 Peritoneal Appearance CLEAR (Clear) 12/05/16 16:30 Peritoneal Volume 7000.0 mL 12/05/16 16:30 Peritoneal pH 7.57 pH Units (No Ref Range) 12/05/16 16:30 Peritoneal RBC < 0.002 M/mcL (0.000-0.002) 12/05/16 16:30 Periton Tot Nuc Cells 164 TNC/mcL (0-300) 12/05/16 16:30 Periton Band Neuts 0 % 12/05/16 16:30 Periton Lymphocytes % 48.0 % 12/05/16 16:30 Periton Monocytes % 26.0 % 12/05/16 16:30 Periton Other Cells % 0 % 12/05/16 16:30 Peritoneal Tot Protein 2.0 g/dL (No Ref Range) 12/05/16 16:30 Peritoneal Albumin 1.1 g/dL (No Ref Range) 12/05/16 16:30 Peritoneal LDH 47 Units/L (No Ref Range) 12/05/16 16:30 Peritoneal Glucose 178 mg/dL (No Ref Range) 12/05/16 16:30 Peritoneal Amylase 5 Units/L (No Ref Range) 12/05/16 16:30 Peritoneal Triglycerid 39 mg/dL (No Ref Range) 12/05/16 16:30 Entire Visit Hgb 10.2 g/dL (11.5-15.4) L 12/12/16 06:05 Hct 33.2 % (35.3-44.9) L 12/12/16 06:05 PT 12.5 Seconds (9.4-12.1) H 12/11/16 06:16 Ferritin 38 ng/ml (5-204) 12/07/16 05:48 Total Bilirubin 0.3 mg/dL (0.2-1.2) 12/11/16 17:37 AST 30 Units/L (5-34) 12/11/16 17:37 ALT 6 Units/L (0-55) 12/11/16 17:37 Ammonia 30 mcmol/L (18-72) 12/04/16 11:54 Lipase 20 Units/L (8-78) 12/04/16 11:54 Folate 15.4 ng/mL (7.0-31.4) 12/08/16 06:11 - ABG ABG results: PT/INR, D-dimer PT 12.5 Seconds (9.4-12.1) H 12/11/16 06:16 - Impressions Impressions Paracentesis Ultrasound 12/11/16 00:00 IMPRESSION: Successful ultrasound guided paracentesis. D/ / Carlitos Montgomery MD / Carlitos Montgomery MD Interpreting Provider: Carlitos Montgomery MD Consult Discharge Plan - Plan Referrals: Dima Juarez MD [Primary Care Provider] - 12/13/16 11:30 am (Please follow up as schedule...) Breanna Hernandez MD [Partnered Physician] - 12/17/16 2:45 pm
--- NOTE | 2016-12-12 14:34 | Palliative - Consult Note ---
Date of Encounter: 12/12/16 Time of Encounter: 14:30 - Assessment and Plan (1) Generalized pain Current Visit: Yes Status: Acute Assessment and plan: Continue [place]ship PRN. Has not utilized x 24 hours. MOnitor (2) Anxiety Current Visit: Yes Status: Acute Assessment and plan: Continue low dose Lorazepam PRN. Utilized x1 last 24 hours. Monitor (3) Counseling regarding advanced care planning and goals of care Current Visit: Yes Status: Acute Assessment and plan: Long discussion with pt sister, Latisha, as well as pt niece, Katy, who is her medical power of divorce attorney. They have been told biopsy results and awaiting oncology recommendations at this point. Prior to diagnosis, Katy was inquiring information on home palliative care through [facility] to assist with management with kidney/liver/CHF issues and symptoms. Discussed that if oncology does not think she is a candidate for treatment r/t multiple comorbities, debility, and dementia, she would be appropriate for hospice care if they desire. Katy is hoping to be here for oncology visit - will try and touch base to see if time can be coordinated where family can be here for information. Continue to follow (4) Acute kidney injury superimposed on chronic kidney disease Current Visit: Yes Status: Acute (5) Ascites Current Visit: Yes Status: Acute Qualifiers: Ascites type: other type Qualified Code(s): R18.8 - Other ascites (6) Adenocarcinoma of esophagus Current Visit: Yes Status: Acute Palliative-CN HPI - Data of Consult Consult date: 12/12/16 Requesting Physician: Maxwell De La Rosa MD Primary Care Provider: Dima Juarez MD - Consult Narrative History of present illness: Ms. Jeong is a 76 year old female with a complex medical history including CHF, COPD, Stage IV Renal disease, Atrial fib, DVT/PE, [place], HTN, and cirrhosis who presented with increasing weakness, shortness of breath and lower extremity edema that began about 3 weeks prior to admission and progressively became worse. She has had large amount of ascites and has had paracentesis x2 since admission, most recent one of yesterday with 6 L drained. She has been followed by GI, Renal as well as hospitalist and remains on diuretic therapy. Last EF 55-60%. She had EGD/Colon a few days ago and large GE polyp was biopsied. Pathology today demonstrated adenocarcinoma. Family has been made aware of this new diagnosis. Awaiting Oncology consult. Patient's niece Katy is MPOA. CC: Maxwell De La Rosa MD Past Med Surg Social Fam HX - Past Medical History Medical history: arthritis, asthma, atrial fibrillation, CHF, COPD, coronary artery disease, DVT, dementia, diabetes, GERD, hyperlipidemia, hypertension, myocardial infarction, peripheral artery disease, pulmonary embolus, renal disease, thyroid disease, TIA, venous stasis, other Psychiatric history: anxiety, depression - Past Surgical History Surgical History: angioplasty/stent, cholecystectomy, hysterectomy, knee replacement, orthopedic, other, other - Social History Smoking Status: Current every day smoker Smokeless Tobacco Status: No Alcohol use: none Drug use: none - Family History Mother Family Member Ethnicity: Non- Living Status: Hx Family Cardiac Disorders: Yes Hx Family Respiratory Disorders: Yes Hx Family Cancer: Yes Hx Family GI Disorders: No Hx Family Endocrine Disorder: No Hx Family Neuromuscular Disorders: No Hx Family Neurologic Disorders: Yes Hx Family HEENT Disorders: No Hx Family Autoimmune Disorders: No Medications and Allergies Folic Acid 1 mg PO DAILY 15 Days 10/10/15 [Rx] Losartan [Cozaar] 50 mg PO DAILY tablet 10/10/15 [Rx] Levothyroxine [Synthroid] 75 mcg PO 0630 10/26/15 [History] Isosorbide MONOnitrate (24 HR) [Imdur] 60 mg PO DAILY tab.er.24h 10/30/15 [Rx] Metoprolol XL (24 HR) Succ [Toprol Xl] 25 mg PO DAILY tab.er.24h 10/30/15 [Rx] Amiodarone [Cordarone] 200 mg PO DAILY 11/19/16 [History] Digoxin [Lanoxin] 0.125 mg PO DAILY 11/19/16 [History] HYDROcodone/Acet 5/325 mg [[place]ship 5-325 mg] 1 tab PO BID PRN 11/19/16 [History] Ropinirole [Requip] 1 mg PO HS 11/19/16 [History] TraZODone 50 - 100 mg PO HS 11/19/16 [History] Bumetanide [Bumetanide] 4 mg PO BID 12/04/16 [History] Duloxetine [Cymbalta] 30 mg PO DAILY 12/04/16 [History] Insulin Aspart Prot/Insuln Asp [Novolog Mix 70-30 Flexpen Syrn] 50 unit SQ BID 12/04/16 [History] Allergies azithromycin [From Zithromax] Allergy (Verified 11/19/16 17:29) Rash furosemide [From Lasix] Adverse Reaction (Verified 11/19/16 17:29) Headache ketorolac [From Toradol] Adverse Reaction (Verified 11/19/16 17:29) Hypotension ROS unobtainable: due to mental status Palliative Care-Exam - Constitutional Vitals: Temp Pulse Resp BP Pulse Ox 97.6 F 59 16 160/55 96 12/12/16 12:15 12/12/16 12:15 12/12/16 12:15 12/12/16 12:58 12/12/16 12:15 General appearance: Present: no acute distress - Head Head Exam: Present: normal inspection, normocephalic - Eye Eye exam: Present: normal appearance, PERRL - Respiratory Respiratory exam: Present: decreased breath sounds, CTAB - Cardiovascular Cardiovascular exam: Present: +S1, +S2 - GI/Abdominal Exam GI/Abdominal exam: Present: distended, normal bowel sounds, tenderness - Extremities Exam Additional comments: 2-3 + edema lower extremities - Neurological Exam Neurological exam: Present: alert Additional comments: Oriented to name and place. Inappropriate statements at times. With conversation, she struggles with focusing and frequently changes topics during conversation. Can follow one-step instructions only. LUPE. - Psychiatric Psychiatric exam: Present: normal affect, normal mood - Skin Skin exam: Present: dry, warm Internal Medicine - CN: Reslt - Labs CBC & Chem 7: 12/12/16 06:05 12/12/16 06:05 Labs: Short CBC 12/12/16 Range/Units 06:05 WBC 14.7 H (4.3-11.1) K/mcL Hgb 10.2 L (11.5-15.4) g/dL Hct 33.2 L (35.3-44.9) % Plt Count 345 (140-400) K/mcL Neutrophils # 11.2 H (1.6-8.9) K/mcL BMP 12/11/16 12/12/16 17:37 06:05 Sodium 137 138 Potassium 4.8 H 5.0 H Chloride 102 104 Carbon Dioxide 27 25 BUN 50 H 50 H Creatinine 2.82 H 2.61 H Glucose 190 H 134 H Calcium 9.5 9.6 Liver Function 12/11/16 Range/Units 17:37 Total Bilirubin 0.3 (0.2-1.2) mg/dL AST 30 (5-34) Units/L ALT 6 (0-55) Units/L Alkaline Phosphatase 102 (38-126) Units/L Albumin 2.6 L (3.5-5.0) g/dL - ABG Interpretation ABG results: PT/INR, D-dimer PT 12.5 Seconds (9.4-12.1) H 12/11/16 06:16 Consult Discharge Plan - Plan Referrals: Dima Juarez MD [Primary Care Provider] - 12/13/16 11:30 am (Please follow up as schedule...) Breanna Hernandez MD [Partnered Physician] - 12/17/16 2:45 pm Palliative Quality Palliative Quality: Screen for Code Status: Yes, Screen for Goals of Care: Yes, Screen for Pain: Yes, If Pain Regimen Started, Initiate Bowel Regimen: NA, Screen for Nausea/Vomitting: Yes Code Status: 12/12/16 14:26 DNR [Resuscitation Status: Active] [RES] Routine Comment: Resuscitation Status: DNR-Comfort Care-Arrest
[2016-12-12] MEDS: *HR* HYDROcodone/Acet 5/325 mg TABLET PO PRN ×2 (15:43→22:48)
--- NOTE | 2016-12-12 17:48 | Internal Med Progress Note ---
Date of Encounter: 12/12/16 Time of Encounter: 17:46 - Assessment and plan (1) Adenocarcinoma of esophagus Current Visit: Yes Status: Acute Assessment and plan: GE junction [place]. Underwent recent EGD scopy diagnosis discussed with patient. her sister at bedside. all questions answered. Oncology/Nephrology/ GI/Palliative on board. will follow recommendations. (2) Cellulitis Current Visit: Yes Status: Acute Assessment and plan: Day 6 Ancef Her cellulitis is very well controlled. The reason for encephalopathy is possible cellulitis. We will continue present treatment. 12/11/2016 cellulitis getting better. day 8 antibiotics will stop tomorrow 12/12/2016 will stop abx tomorrow cellulitis improving. Qualifiers: Site of cellulitis: extremity Site of cellulitis of extremity: lower extremity Laterality: right Qualified Code(s): L03.115 - Cellulitis of right lower limb (3) Ascites Current Visit: Yes Status: Acute Assessment and plan: Patient is scheduled for abdominal aspiration tomorrow 12/11/2016 S/P abdominal paracentesis more than 5 lit removed. family and patient would like to discuss option of palliative care. 12/12/2016 has abdominal pain and distention. possible tap tomorrow if agrees on hospice then pleurex in peritoneal cavity. Qualifiers: Ascites type: other type Qualified Code(s): R18.8 - Other ascites (4) Bradycardia Current Visit: Yes Status: Acute Assessment and plan: Known to have bradycardia. Heart rate is 50s and 60s. Serum digoxin level is therapeutic (5) CKD (chronic kidney disease) Current Visit: Yes Status: Acute Assessment and plan: Creatinine 2.68 Stable Will follow renal recommendations. Qualifiers: Chronic kidney disease stage: stage 4 (severe) Qualified Code(s): N18.4 - Chronic kidney disease, stage 4 (severe) (6) HTN (hypertension) Current Visit: Yes Status: Acute Assessment and plan: Will continue home medications Qualifiers: Hypertension type: essential hypertension Qualified Code(s): I10 - Essential (primary) hypertension (7) DVT prophylaxis Current Visit: Yes Status: Acute Assessment and plan: ICD. - Subjective Interval history: Seen and examined. Chart reviewed. The patient presented similarly better as compared to yesterday. She still has a generalized weakness and fatigue. 12/11/2016 seen and examined. no new complaints S/P drainage of ascitic fluid. patient prefers to stay one more day family at bedside would like to discuss option of palliative care 12/12/2016 seen and examined. she feels weak and not ready for home. diagnosis discuss at length regarding GE junction AdenoCa Patient's sister at bedside. GI/Nephrology/Oncology/palliative care on board will follow recommendations. - Constitutional Vitals: Temp Pulse Resp BP Pulse Ox 98.4 F 57 20 163/56 95 12/12/16 15:57 12/12/16 15:57 12/12/16 15:57 12/12/16 15:57 12/12/16 15:57 General appearance: Present: A&O X 3, pleasant, answers questions appropriately - Head Head exam: Present: atraumatic, normocephalic - Eye Eye exam: Present: PERRL, conjuntiva pink, sclera anicteric Pupils: Present: PERRL - Neck Neck exam general surgery: Present: supple, trachea midline. Absent: lymphadenopathy - Respiratory Respiratory exam: Present: CTAB. Absent: accessory muscle use, rales, rhonchi, wheezes - Cardiovascular Cardiovascular exam: Present: RRR, +S1, +S2. Absent: diastolic murmur, gallop, rubs, systolic murmur - GI/Abdominal GI/Abdominal exam: Present: normal bowel sounds, soft, no peritoneal signs. Absent: distended, tenderness - Extremities Exam Extremities exam: Present: warm, radial pulses palpable and symetrical. Absent : calf tenderness, cyanotic, pedal edema - Neurological Exam Neurological exam: Present: CN II-XII intact, oriented X3, no focal deficits. Absent: pronater drift, facial droop, speech deficit - Skin Skin exam: Present: dry, intact Internal Medicine: Result - Labs CBC & Chem 7: 12/12/16 06:05 12/12/16 06:05 Labs: Short CBC 12/12/16 Range/Units 06:05 WBC 14.7 H (4.3-11.1) K/mcL Hgb 10.2 L (11.5-15.4) g/dL Hct 33.2 L (35.3-44.9) % Plt Count 345 (140-400) K/mcL Neutrophils # 11.2 H (1.6-8.9) K/mcL BMP 12/11/16 12/12/16 17:37 06:05 Sodium 137 138 Potassium 4.8 H 5.0 H Chloride 102 104 Carbon Dioxide 27 25 BUN 50 H 50 H Creatinine 2.82 H 2.61 H Glucose 190 H 134 H Calcium 9.5 9.6 Liver Function 12/11/16 Range/Units 17:37 Total Bilirubin 0.3 (0.2-1.2) mg/dL AST 30 (5-34) Units/L ALT 6 (0-55) Units/L Alkaline Phosphatase 102 (38-126) Units/L Albumin 2.6 L (3.5-5.0) g/dL - ABG Interpretation ABG results: PT/INR, D-dimer PT 12.5 Seconds (9.4-12.1) H 12/11/16 06:16 Consult Discharge Plan - Plan Referrals: Dima Juarez MD [Primary Care Provider] - 12/13/16 11:30 am (Please follow up as schedule...) Breanna Hernandez MD [Partnered Physician] - 12/17/16 2:45 pm
--- NOTE | 2016-12-12 18:52 | Oncology Inp Consult Note ---
Date of Encounter: 12/12/16 Time of Encounter: 18:49 Assessment and Plan (1) Adenocarcinoma of esophagus Status: Acute Assessment and plan: Reviewed NCCN guidelines. At least T1 a allergy report involving submucosa. . Grade 2 adenocarcinoma grade 2. Discussed this with Dr. diaz. It is involving more than one third of the circumference. Clinically T2 or T3. He may be able to do an EUS as an outpatient next week Per Dr. Hernandez endoscopic mucosal resection is not an option given that the tumor is more extensive She has cirrhosis with large volume ascites. She may be a poor risk surgical candidate Discuss with Dr. Rodriguez. Surgical team will evaluate her to decide if she would be a candidate for surgery Also discussed his GI tumor board on 12/13/2016. Discussed with Dr. Lopez radiation oncology. PET scan as an outpatient on 12/18/2016. If this is localized disease may consider concurrent chemoradiation. Would consider weekly carbo Taxol. Given multiple medical problems including type 2 diabetes mellitus and chronic kidney disease stage IV she may decompensate easily (2) Hepatic cirrhosis Status: Acute Assessment and plan: Etiology could be secondary to long-standing type 2 diabetes mellitus. Viral hepatitis panel negative 12/05/2016 AST ALT alkaline phosphatase normal. Your normal at 0.8 and INR normal at 1.2 normal PTT She is decompensated with recurrent ascites Qualifiers: Hepatic cirrhosis type: unspecified hepatic cirrhosis Ascites presence: with ascites Qualified Code(s): K74.60 - Unspecified cirrhosis of liver - Data of Consult Requesting Physician: Maxwell De La Rosa MD Primary Care Provider: Dima Juarez MD - Consult Narrative Reason for consult: Carcinoma GE junction History of present illness: Ms. Jeong is a 76 year old female with history of cirrhosis, ascites, CHF , [id number], BELL, COPD, CKD stage III, CAD, DM, cardiomyopathy, and HTN. Pt c/o dyspnea x 3 weeks, has been increasing over the last 4-5 days. Ultrasound-guided paracentesis 12/06/2016 6 L fluid removed. Cytology negative for malignancy. Aside this could be just secondary to cirrhosis EGD and colonoscopy done 12/09/2016. Polyp radiation GE junction propria 3 polypoid lesions in the duodenum negative for malignancy. Also some chronic gastritis Colonoscopy showed diverticulosis otherwise negative She has chronic kidney disease stage IV and she follows up with nephrology. She is also on diuretics which could be aggravating some of the renal insufficiency with current creatinine 2.61 with potassium 5 and magnesium 1.6 Mild anemia hemoglobin 10.2 with MCV 79. An saturation low at 7% ferritin 33. B12 folate and TSH normal Serum protein electrophoresis showed faint band in IgG lambda 12/05/2016. Urine was negative for BJ P in 2014. It did show polyclonal proteinuria CT abdomen and pelvis without contrast 11/19/2016 showed large volume ascites. 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 Also 4.5 simple-looking cysts in the liver Echocardiogram is 2016 showed ejection fraction 55-60% with moderate aortic stenosis. Refer. Concentric left ventricle hypertrophy Renal/retroperitoneal ultrasound showed evidence of chronic bilateral kidney disease Past Med Surg Social Fam HX - Past Medical History Medical history: arthritis, asthma, atrial fibrillation, CHF, COPD, coronary artery disease, DVT, dementia, diabetes, GERD, hyperlipidemia, hypertension, myocardial infarction, peripheral artery disease, pulmonary embolus, renal disease, thyroid disease, TIA, venous stasis, other Psychiatric history: anxiety, depression - Past Surgical History Surgical History: angioplasty/stent, cholecystectomy, hysterectomy, knee replacement, orthopedic, other, other - Social History Smoking Status: Current every day smoker Smokeless Tobacco Status: No Alcohol use: none Drug use: none - Family History Mother Family Member Ethnicity: Non- Living Status: Hx Family Cardiac Disorders: Yes Hx Family Respiratory Disorders: Yes Hx Family Cancer: Yes Hx Family GI Disorders: No Hx Family Endocrine Disorder: No Hx Family Neuromuscular Disorders: No Hx Family Neurologic Disorders: Yes Hx Family HEENT Disorders: No Hx Family Autoimmune Disorders: No Medications and Allergies Folic Acid 1 mg PO DAILY 15 Days 10/10/15 [Rx] Losartan [Cozaar] 50 mg PO DAILY tablet 10/10/15 [Rx] Levothyroxine [Synthroid] 75 mcg PO 0630 10/26/15 [History] Isosorbide MONOnitrate (24 HR) [Imdur] 60 mg PO DAILY tab.er.24h 10/30/15 [Rx] Metoprolol XL (24 HR) Succ [Toprol Xl] 25 mg PO DAILY tab.er.24h 10/30/15 [Rx] Amiodarone [Cordarone] 200 mg PO DAILY 11/19/16 [History] Digoxin [Lanoxin] 0.125 mg PO DAILY 11/19/16 [History] HYDROcodone/Acet 5/325 mg [[place] 5-325 mg] 1 tab PO BID PRN 11/19/16 [History] Ropinirole [Requip] 1 mg PO HS 11/19/16 [History] TraZODone 50 - 100 mg PO HS 11/19/16 [History] Bumetanide [Bumetanide] 4 mg PO BID 12/04/16 [History] Duloxetine [Cymbalta] 30 mg PO DAILY 12/04/16 [History] Insulin Aspart Prot/Insuln Asp [Novolog Mix 70-30 Flexpen Syrn] 50 unit SQ BID 12/04/16 [History] Allergies azithromycin [From Zithromax] Allergy (Verified 11/19/16 17:29) Rash furosemide [From Lasix] Adverse Reaction (Verified 11/19/16 17:29) Headache ketorolac [From Toradol] Adverse Reaction (Verified 11/19/16 17:29) Hypotension Oncology - Exam - Constitutional Vitals: Temp Pulse Resp BP Pulse Ox 98.4 F 57 20 163/56 95 12/12/16 15:57 12/12/16 15:57 12/12/16 15:57 12/12/16 15:57 12/12/16 15:57 Exam: GENERAL: Alert and oriented, well appearing. Mental Status: Affect appropriate for circumstances HEENT: Sclerae anicteric. No mucositis or thrush. No other oral or pharyngeal lesions or erythema. Skin: No rashes or petechiae. No evidence of skin malignancy Lymph nodes: No cervical, supraclavicular, axillary, or inguinal adenopathy. Lungs: Clear to auscultation and percussion bilaterally. Cardiovascular: Regular rate and rhythm. No gallops, murmurs, or rubs. Abdomen: Soft, distended with ascites. No mass palpable. Extremities: No edema. No calf swelling or tenderness. No joint deformity. Neurologic: Alert, cranial nerves II-XII intact; normal gait; no focal weakness or sensory abnormalities. Oncology - Results - Labs Labs: Short CBC 12/12/16 Range/Units 06:05 WBC 14.7 H (4.3-11.1) K/mcL Hgb 10.2 L (11.5-15.4) g/dL Hct 33.2 L (35.3-44.9) % Plt Count 345 (140-400) K/mcL Neutrophils # 11.2 H (1.6-8.9) K/mcL BMP 12/12/16 06:05 Sodium 138 Potassium 5.0 H Chloride 104 Carbon Dioxide 25 BUN 50 H Creatinine 2.61 H Glucose 134 H Calcium 9.6 Consult Discharge Plan - Plan Referrals: Dima Juarez MD [Primary Care Provider] - 12/13/16 11:30 am (Please follow up as schedule...) Breanna Hernandez MD [Partnered Physician] - 12/17/16 2:45 pm
[2016-12-12] MEDS: traZODone 50 MG TABLET PO SCH (22:48)
[2016-12-12] MEDS: rOPINIRole 1 MG TABLET PO SCH (22:48)
[2016-12-13] MEDS: *HR* LORazepam 2 MG/ML VIAL IVP PRN ×2 (00:54→21:52)
[2016-12-13] MEDS: *HR* Heparin 5,000 UNIT/ML VIAL SQ SCH ×2 (06:26→16:45)
[2016-12-13] MEDS: Spironolactone 25 MG TABLET PO SCH (08:48)
[2016-12-13] MEDS: Cholecalciferol (D-3) 1,000 UNIT TABLET PO SCH (08:48)
[2016-12-13] MEDS: Metoprolol XL (24 HR) Succ 25 MG TAB.ER.24H PO SCH (08:48)
[2016-12-13] MEDS: *HR* Amiodarone 200 MG TABLET PO SCH (08:48)
[2016-12-13] MEDS: Bumetanide 1 MG/4 ML VIAL IVP SCH ×2 (08:48→16:45)
[2016-12-13] MEDS: Isosorbide MONOnitrate (24 HR) 60 MG TAB.ER.24H PO SCH (08:48)
[2016-12-13] MEDS: Folic Acid 1 MG TABLET PO SCH (08:48)
[2016-12-13] MEDS: Cyanocobalamin (B-12) 1,000 MCG/ML VIAL IM SCH (08:49)
[2016-12-13] MEDS: Insulin LISPRO 300 UNITS/3 ML VIAL SQ SCH ×4 (08:49→20:25)
--- NOTE | 2016-12-13 09:58 | Nephrology Progress Note ---
<Nathalia Burton - Last Filed: 12/13/16 14:15> Date of Encounter: 12/13/16 Time of Encounter: 10:55 - Assessment and Plan (1) Acute kidney injury superimposed on chronic kidney disease Current Visit: Yes Status: Acute NYDIA superimposed on CKD IV. Patient had 7L of fluid removed via paracentesis 12/05. IR performed paracentesis 12/11 removing 6L. Patient continues to have b/l LE edema, but it is improved. 12/12 UOP 500, intake 540, net POSITIVE 40 12/05 Phos 3, Iron 19, % saturation 7, transferrin 193, albumin 2.4, PTH 365.6 12/13 SCr 2.73, GFR 17, Na 138, K 5.0 12/13 wt increased to 92.5kg AST, ALT, Alk phos WNL, Hep Bs Antigen, Hep A, Hep C nonreactive Urine Cr 108 Protein/Cr Ratio 1.69 Urine total protein 183 Renal US: Atrophic echogenic appearance of the bilateral kidneys is most consistent with chronic medical renal disease. There is a 1.5 cm simple right renal cyst. There is no evidence of a renal calculus or hydronephrosis. 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 3 polypoid lesions in the duodenal bulb were within normal limits. Oncology and palliative have been consulted and are discussing treatment options for the patient vs palliative therapy at this time. The patient has had increasing ascites in the last 48 hours since her paracentesis on 12/11. Plan: -If the patient is to undergo paracentesis recommend holding diuretics and administering albumin. Otherwise, continue diuretics today: Bumex 2mg BID IV, Spironolactone 50mg PO daily. SCr has returned to baseline and we would like the patient to be euvolemic or net negative as tolerated. Spironolactone maximized for management of ascites in the setting of cirrhosis. -Continue STRICT I/Os and daily weights -2L fluid restriction -Continue to avoid nephrotoxic agents and utilize renal protective dosing (2) CKD (chronic kidney disease) stage 4, GFR 15-29 ml/min Current Visit: No Status: Chronic (3) Ascites Current Visit: Yes Status: Acute Per above, manage with spironolactone 50mg daily. Qualifiers: Ascites type: other type Qualified Code(s): R18.8 - Other ascites (4) Edema extremities Current Visit: Yes Status: Acute continues to improve with diuresis (5) Proteinuria Current Visit: Yes Status: Acute Qualifiers: Proteinuria type: unspecified Qualified Code(s): R80.9 - Proteinuria, unspecified (6) HTN (hypertension) Current Visit: Yes Status: Acute Qualifiers: Hypertension type: essential hypertension Qualified Code(s): I10 - Essential (primary) hypertension (7) Digoxin toxicity Current Visit: Yes Status: Resolved improved with holding digoxin, digoxin level 2.0 Qualifiers: Encounter type: initial encounter Injury intent: accidental or unintentional Qualified Code(s): T46.0X1A - Poisoning by cardiac-stimulant glycosides and drugs of similar action, accidental (unintentional), initial encounter (8) Microcytic anemia Current Visit: Yes Status: Acute BELL, iron dextran given 12/07/16 Vit B and Folate WNL (9) Hepatic cirrhosis Current Visit: Yes Status: Acute per GI Qualifiers: Hepatic cirrhosis type: unspecified hepatic cirrhosis Ascites presence: with ascites Qualified Code(s): K74.60 - Unspecified cirrhosis of liver (10) Vitamin D deficiency Current Visit: Yes Status: Acute Give Ergocalciferol 50,000 Weekly for 8 weeks. (11) Leukocytosis Current Visit: Yes Status: Acute Qualifiers: Leukocytosis type: unspecified Qualified Code(s): D72.829 - Elevated white blood cell count, unspecified Subjective Principal diagnosis: NYDIA, CKD IV, Ascites, Edema, HTN Interval history: Patient seen and examined today. Patient states that she is feeling better today. She does state that her abdomen is tender and needs to be tapped. She also notes that her leg tenderness has improved. She denies ARNOLD, dizziness, visual changes, cp, sob. Objective - Vital Signs Vital signs: Vital Signs Temp Pulse Resp BP Pulse Ox 12/13/16 07:39 98.6 F 60 16 130/49 97 12/13/16 06:07 98.0 F 63 18 140/52 93 L 12/13/16 00:37 98.5 F 69 18 145/61 97 12/12/16 23:03 98 12/12/16 20:57 98.4 F 60 19 179/63 97 12/12/16 15:57 98.4 F 57 20 163/56 95 12/12/16 12:58 160/55 12/12/16 12:15 97.6 F 59 16 96 Intake and Output 12/12/16 12/13/16 12/13/16 23:59 07:59 15:59 Output Total 500 / 500 Balance -500 / -500 Output: Urine 500 / 500 Other: Stool Size Moderate Stool Consistency formed Stool Color Brown Weight 92.5 kg Blood Glucose* 245 174 Patient Weight 12/13/16 23:59 Weight 92.5 kg - General Appearance General appearance: Present: well-developed, well-nourished, chronically ill EENT: Present: ATNC, PERRL, mucous membranes moist Neck: Present: supple Respiratory: Present: rales Cardiology: Present: holosystolic murmur, no rub, no gallops, edema (b/l LE), regular rate, regular rhythm Gastrointestinal: Present: normoactive bowel sounds, tenderness, distended Additional Comments: abdominal ascites, positive fluid wave, caput medusae, no erythema Integumentary: Present: no rash, warm and dry Additional Comments: well healing lesion on right anterior dempsey, no erythema Neurologic: Present: no focal deficit, alert and oriented x3, confused Musculoskeletal: Present: no deformities, no erythema, no cyanosis, no clubbing Psychiatric: Present: mood/affect appropriate, cooperative - Lab 12/13/16 12:20 12/13/16 12:20 Most recent lab results Calcium 9.6 mg/dL (8.6-10.8) 12/12/16 06:05 Phosphorus 3.2 mg/dL (2.3-4.7) 12/10/16 07:38 Urine Creatinine 108 mg/dL 12/05/16 18:00 Urine Total Protein 183 mg/dL (1-14) H 12/05/16 18:00 - Allied health notes Allied health notes reviewed: nursing Consult Discharge Plan - Plan Referrals: Dima Juarez MD [Primary Care Provider] - (web request sent on 12/15/16) Breanna Hernandez MD [Partnered Physician] - 12/17/16 2:45 pm <Quang Carson - Last Filed: 12/15/16 14:20> - Assessment and Plan (1) Acute kidney injury superimposed on chronic kidney disease Current Visit: Yes Status: Acute (2) Adenocarcinoma Current Visit: Yes Status: Acute (3) Hyperkalemia Current Visit: Yes Status: Acute (4) Hepatic cirrhosis Current Visit: Yes Status: Acute Qualifiers: Hepatic cirrhosis type: unspecified hepatic cirrhosis Ascites presence: with ascites Qualified Code(s): K74.60 - Unspecified cirrhosis of liver (5) CKD (chronic kidney disease) stage 4, GFR 15-29 ml/min Current Visit: No Status: Chronic Objective - Vital Signs Vital signs: Vital Signs Temp Pulse Resp BP Pulse Ox 12/15/16 11:29 98.0 F 59 16 181/67 96 12/15/16 08:00 95 12/15/16 07:10 98.6 F 113 14 193/67 95 12/15/16 03:49 97.7 F 63 16 162/54 96 12/14/16 23:48 97.6 F 65 18 152/60 96 12/14/16 20:52 97.9 F 65 18 168/59 96 12/14/16 16:27 97.9 F 67 16 158/68 94 L Intake and Output 12/14/16 12/15/16 12/15/16 22:59 07:59 15:59 Intake Total 540 / 540 Output Total 0 / 0 Balance 540 / 540 Intake: Oral 540 / 540 Output: Urine 0 / 0 Other: Meal Lunch Percent of Meal Consumed 75% Weight Blood Glucose* 169 Patient Weight 12/16/16 00:59 Weight 86.8 kg - Lab 12/15/16 06:42 12/15/16 06:42 Most recent lab results Calcium 10.0 mg/dL (8.6-10.8) 12/15/16 06:42 Phosphorus 3.2 mg/dL (2.3-4.7) 12/10/16 07:38 Urine Creatinine 108 mg/dL 12/05/16 18:00 Urine Total Protein 183 mg/dL (1-14) H 12/05/16 18:00 - Attending Attestation I examined this patient and my medical decision-making was reviewed with the ASSISTANT PROFESSOR OF RADIOLOGY/PA/Advanced Practice Nurse/Resident Physician. I agree with the documented findings, disposition and treatment plan as described except to the extent set forth below. Pt seen and examined and agree with plan as above. interim events reviewed. Paracentesis planned today, would recommend albmin prn. will continue diuretics for now with bumex and aldactone while monitoring potassium levels
[2016-12-13] MEDS: *HR* HYDROcodone/Acet 5/325 mg TABLET PO PRN ×2 (11:10→18:09)
--- NOTE | 2016-12-13 11:45 | Palliative Progress Note ---
Date of Encounter: 12/13/16 Time of Encounter: 11:40 - Assessment and plan (1) Generalized pain Current Visit: Yes Status: Acute Assessment and plan: Continue current regimen and adjust as needed. She has not required any pain medication last 24 hours (2) Anxiety Current Visit: Yes Status: Acute Assessment and plan: Continue low dose Ativan and monitor. Has utilized x2 last 24 hours. Transition to po prior to d/c. (3) Itching Current Visit: Yes Status: Acute Assessment and plan: Diphenhydramine has been ordered by hospitalist. Will add Cetaphil lotion as well. (4) Counseling regarding advanced care planning and goals of care Current Visit: Yes Status: Acute Assessment and plan: Long discussion with POA. Patient has greatly reaccumulated ascites just in the last 48 hours. Didi spoke with Dr. Diaz - she would like surgical opinion re: possible endoscopic resection of tumor for palliative measures. After this evaluation or procedure, would like to transition home with [facility] hospice. After surgical eval complete, will consult with IR for placement of cath for drainage of ascites to be done at home per family for comfort measures. Spoke with [facility] about possible referral. Will continue to follow closely. (5) Acute kidney injury superimposed on chronic kidney disease Current Visit: Yes Status: Acute (6) Ascites Current Visit: Yes Status: Acute Qualifiers: Ascites type: other type Qualified Code(s): R18.8 - Other ascites (7) Adenocarcinoma of esophagus Current Visit: Yes Status: Acute - Time Spent With Patient Total time spent is greater than 50% in coordination of care (as documented) at patient's floor/unit and/or counseling patient: - Subjective Interval history: Patient awake and alert. Pleasantly confused. No recollection of yesterday's event and did not remember the conversation of esophageal cancer. Didi,Katy POA at bedside. She discussed conversation with Dr. Diaz and surgical consult pending. Abdomen more distended and tight from yesterday, pt states that it is more tender, and she needs fluid off. - Constitutional Vitals: Abnormal lab results WBC 14.7 K/mcL (4.3-11.1) H 12/12/16 06:05 Hgb 10.2 g/dL (11.5-15.4) L 12/12/16 06:05 Hct 33.2 % (35.3-44.9) L 12/12/16 06:05 MCV 79.0 fL (83.0-100.0) L 12/12/16 06:05 MCH 24.3 pg (28.0-33.3) L 12/12/16 06:05 MCHC 30.7 g/dL (31.6-35.5) L 12/12/16 06:05 RDW 18.6 % (11.5-14.5) H 12/12/16 06:05 Neutrophils # 11.2 K/mcL (1.6-8.9) H 12/12/16 06:05 Nucleated RBCs/100 WBC 0.2 /100 WBC (0) H 12/10/16 07:38 PT 12.5 Seconds (9.4-12.1) H 12/11/16 06:16 Potassium 5.0 mEq/L (3.5-4.5) H 12/12/16 06:05 BUN 50 mg/dL (7-20) H 12/12/16 06:05 Creatinine 2.61 mg/dL (0.57-1.11) H 12/12/16 06:05 Est GFR ( Amer) 22 (> 60) L 12/12/16 06:05 Est GFR (Non-Af Amer) 18 (> 60) L 12/12/16 06:05 Glucose 134 mg/dL (70-99) H 12/12/16 06:05 POC Glucose 245 (58-89) H 12/12/16 21:31 Hemoglobin A1c 6.5 % (-5.6) H 12/04/16 11:54 Calculated Osmolality 301 (280-300) H 12/12/16 06:05 Iron 19 mcg/dL (50-170) L 12/05/16 12:45 % Saturation 7 % (15-50) L 12/05/16 12:45 Troponin I 0.04 ng/mL (0-0.03) H* 12/04/16 23:11 Albumin 2.6 g/dL (3.5-5.0) L 12/11/16 17:37 Albumin (PEP) 3.17 g/dL (3.75-5.01) L 12/05/16 12:45 Albumin/Globulin Ratio 0.8 (1.1-2.2) L 12/11/16 17:37 Prealbumin 12.0 mg/dL (16.0-38.0) L 12/08/16 06:11 Rvtnv-5-Egjnxdnig 0.47 g/dL (0.19-0.46) H 12/05/16 12:45 25-OH Vitamin D Total 9 ng/mL (30-80) L 12/07/16 05:48 PTH Intact 365.6 pg/ml (8.5-72.5) H 12/05/16 12:45 Urine Clarity Cloudy (Clear) A 12/04/16 12:49 Urine Protein 100 mg/dL (Neg-Trace) H 12/04/16 12:49 Ur Squamous Epith Cells Many per lpf (None-Few) H 12/04/16 12:49 Protein/Creatinin Ratio 1.69 mg/mg (0-0.20) H 12/05/16 18:00 Urine Total Protein 183 mg/dL (1-14) H 12/05/16 18:00 Free [place] LC, Quant 9.49 mg/dL (0.33-1.94) H 12/05/16 12:45 Free [place] LC, Quant 7.86 mg/dL (0.57-2.63) H 12/05/16 12:45 General appearance: Present: no acute distress - Respiratory Respiratory exam: Present: decreased breath sounds, CTAB - Cardiovascular Cardiovascular exam: Present: +S1, +S2 - GI/Abdominal GI/Abdominal exam: Present: distended, firm, normal bowel sounds - Extremities Exam Additional comments: generalized edema - Neurological Exam Neurological exam: Present: alert Additional comments: Oriented to name and place only. Pleasant and cooperative. - Psychiatric Psychiatric exam: Present: normal affect, normal mood - Skin Skin exam: Present: dry, pallor, warm Palliative Quality Palliative Quality: Screen for Code Status: Yes, Screen for Goals of Care: Yes, Screen for Pain: Yes, If Pain Regimen Started, Initiate Bowel Regimen: NA, Screen for Nausea/Vomitting: Yes Code Status: 12/12/16 14:26 DNR [Resuscitation Status: Active] [RES] Routine Comment: Resuscitation Status: DNR-Comfort Care-Arrest - Labs CBC & Chem 7: 12/12/16 06:05 12/12/16 06:05 Labs: Laboratory Results - last 24 hr 12/11/16 12/12/16 12/12/16 15:52 08:26 12:18 POC Glucose 220 H 238 H 227 H 12/12/16 12/12/16 15:59 21:31 POC Glucose 218 H 245 H - ABG Interpretation ABG results: PT/INR, D-dimer PT 12.5 Seconds (9.4-12.1) H 12/11/16 06:16 Consult Discharge Plan - Plan Referrals: Dima Juarez MD [Primary Care Provider] - 12/13/16 11:30 am (Please follow up as schedule...) Breanna Hernandez MD [Partnered Physician] - 12/17/16 2:45 pm
[2016-12-13 12:30] LABS: Calcium 10.2 mg/dL (8.6-10.8)
[2016-12-13 12:37] LABS: Basophils # 0.1 K/mcL (0.0-0.2); Basophils % 0.6 %; Eosinophils # 0.5 K/mcL (0.0-0.6); Eosinophils % 3.6 %; Hematocrit 31.3 % (35.3-44.9); Hemoglobin 9.5 g/dL (11.5-15.4); Immature Granulocytes % 0.7 % (0-4); Lymphocytes # 1.6 K/mcL (0.6-4.6); Lymphocytes % 11.8 %; Mean Corpuscular HGB Conc 30.4 g/dL (31.6-35.5); Mean Corpuscular Hemoglobin 23.9 pg (28.0-33.3); Mean Corpuscular Volume 78.6 fL (83.0-100.0); Mean Platelet Volume 10.4 fL (9.4-12.4); Monocytes % 7.2 %; Neutrophils # 10.5 K/mcL (1.6-8.9); Red Blood Count 3.98 M/mcL (3.82-4.97); Red Cell Distribution Width 19.3 % (11.5-14.5); Segmented Neutrophils % 76.1 %
[2016-12-13 12:41] LABS: INR 1.2; Prothrombin Time 12.5 Seconds (9.4-12.1)
[2016-12-13 12:45] LABS: Platelet Count 322 K/mcL (140-400)
[2016-12-13 12:46] LABS: Activated Partial Thrombo Time 27.4 Seconds (26.0-36.0)
[2016-12-13 12:48] LABS: Calcium 10.1 mg/dL (8.6-10.8)
[2016-12-13] MEDS: Cetaphil Lotion 473 ML BOTTLE TP SCH ×2 (16:46→20:22)
--- NOTE | 2016-12-13 17:15 | Internal Med Progress Note ---
Date of Encounter: 12/13/16 Time of Encounter: 17:12 - Assessment and plan (1) CVA (cerebral vascular accident) Current Visit: No Status: Acute Assessment and plan: stroke code was called as patient was unresponsive. Stat CT scan done and patient was evaluated by teleneurology. not a candidate for tPA as she has active malignancy ( GJ junction) recommended no further work up in terms Of CVA. case discussed with local neurology. Neurology will see tomorrow Qualifiers: CVA mechanism: unspecified Qualified Code(s): I63.9 - Cerebral infarction, unspecified (2) Adenocarcinoma of esophagus Current Visit: Yes Status: Acute Assessment and plan: GE junction [place]. Underwent recent EGD scopy diagnosis discussed with patient. her sister at bedside. all questions answered. Oncology/Nephrology/ GI/Palliative on board. will follow recommendations. 12/13/2016 Oncology on board case discussed in tumor board. oncologist discussed option with family and patient. will await for family decision (3) Cellulitis Current Visit: Yes Status: Acute Assessment and plan: Day 6 Ancef Her cellulitis is very well controlled. The reason for encephalopathy is possible cellulitis. We will continue present treatment. 12/11/2016 cellulitis getting better. day 8 antibiotics will stop tomorrow 12/12/2016 will stop abx tomorrow cellulitis improving. Qualifiers: Site of cellulitis: extremity Site of cellulitis of extremity: lower extremity Laterality: right Qualified Code(s): L03.115 - Cellulitis of right lower limb (4) Ascites Current Visit: Yes Status: Acute Assessment and plan: Patient is scheduled for abdominal aspiration tomorrow 12/11/2016 S/P abdominal paracentesis more than 5 lit removed. family and patient would like to discuss option of palliative care. 12/12/2016 has abdominal pain and distention. possible tap tomorrow if agrees on hospice then pleurex in peritoneal cavity. 12/13/2016 will have repeat ascitic tap on Friday. Qualifiers: Ascites type: other type Qualified Code(s): R18.8 - Other ascites (5) Bradycardia Current Visit: Yes Status: Acute Assessment and plan: Known to have bradycardia. Heart rate is 50s and 60s. Serum digoxin level is therapeutic (6) CKD (chronic kidney disease) Current Visit: Yes Status: Acute Assessment and plan: Creatinine 2.68 Stable Will follow renal recommendations. Qualifiers: Chronic kidney disease stage: stage 4 (severe) Qualified Code(s): N18.4 - Chronic kidney disease, stage 4 (severe) (7) HTN (hypertension) Current Visit: Yes Status: Acute Assessment and plan: Will continue home medications Qualifiers: Hypertension type: essential hypertension Qualified Code(s): I10 - Essential (primary) hypertension (8) DVT prophylaxis Current Visit: Yes Status: Acute Assessment and plan: ICD. - Subjective Interval history: Seen and examined. Chart reviewed. The patient presented similarly better as compared to yesterday. She still has a generalized weakness and fatigue. 12/11/2016 seen and examined. no new complaints S/P drainage of ascitic fluid. patient prefers to stay one more day family at bedside would like to discuss option of palliative care 12/12/2016 seen and examined. she feels weak and not ready for home. diagnosis discuss at length regarding GE junction [place] Patient's sister at bedside. GI/Nephrology/Oncology/palliative care on board will follow recommendations. 12/13/2016 seen and examined. stroke code was called as patient was unresponsive. Stat CT scan done and patient was evaluated by teleneurology. recommended no further work up in terms Of CVA. - Constitutional Vitals: Temp Pulse Resp BP Pulse Ox 98.3 F 65 16 156/58 97 12/13/16 15:02 12/13/16 15:02 12/13/16 15:02 12/13/16 15:02 12/13/16 15:02 General appearance: Present: A&O X 3, pleasant, answers questions appropriately - Head Head exam: Present: atraumatic, normocephalic - Eye Eye exam: Present: PERRL, conjuntiva pink, sclera anicteric Pupils: Present: PERRL - Neck Neck exam general surgery: Present: supple, trachea midline. Absent: lymphadenopathy - Respiratory Respiratory exam: Present: CTAB. Absent: accessory muscle use, rales, rhonchi, wheezes - Cardiovascular Cardiovascular exam: Present: RRR, +S1, +S2. Absent: diastolic murmur, gallop, rubs, systolic murmur - GI/Abdominal GI/Abdominal exam: Present: normal bowel sounds, soft, no peritoneal signs. Absent: distended, tenderness - Extremities Exam Extremities exam: Present: warm, radial pulses palpable and symetrical. Absent : calf tenderness, cyanotic, pedal edema - Neurological Exam Neurological exam: Present: CN II-XII intact, oriented X3, no focal deficits. Absent: pronater drift, facial droop, speech deficit - Skin Skin exam: Present: dry, intact Internal Medicine: Result - Labs CBC & Chem 7: 12/13/16 12:20 12/13/16 12:20 Labs: Short CBC 12/13/16 Range/Units 12:20 WBC 13.8 H (4.3-11.1) K/mcL Hgb 9.5 L (11.5-15.4) g/dL Hct 31.3 L (35.3-44.9) % Plt Count 322 (140-400) K/mcL Neutrophils # 10.5 H (1.6-8.9) K/mcL BMP 12/13/16 12/13/16 11:13 12:20 Sodium 137 138 Potassium 5.0 H 5.0 H Chloride 102 102 Carbon Dioxide 28 29 BUN 49 H 50 H Creatinine 2.73 H 2.82 H Glucose 170 H 180 H Calcium 10.2 10.1 Cardiac Enzymes 12/13/16 Range/Units 12:20 Troponin I 0.03 (0-0.03) ng/mL - ABG Interpretation ABG results: PT/INR, D-dimer PT 12.5 Seconds (9.4-12.1) H 12/13/16 12:20 - Impressions Impressions Head CT 12/13/16 12:06 IMPRESSION: No acute intracranial abnormality. Dr. De La Rosa was notified 12:21 p.m. on 12/13/2016. D/ / 12/13/2016 12:39:30 Ezra Rutledge MD / manuel Interpreting Provider: Ezra Rutledge MD Consult Discharge Plan - Plan Referrals: Dima Juarez MD [Primary Care Provider] - 12/13/16 11:30 am (Please follow up as schedule...) Breanna Hernandez MD [Partnered Physician] - 12/17/16 2:45 pm
[2016-12-13] MEDS: rOPINIRole 1 MG TABLET PO SCH (20:21)
[2016-12-13] MEDS: traZODone 50 MG TABLET PO SCH (20:21)
[2016-12-14] MEDS: *HR* HYDROcodone/Acet 5/325 mg TABLET PO PRN ×2 (01:06→18:17)
[2016-12-14] MEDS: *HR* LORazepam 2 MG/ML VIAL IVP PRN (05:52)
[2016-12-14] MEDS: *HR* Heparin 5,000 UNIT/ML VIAL SQ SCH ×2 (05:52→17:11)
[2016-12-14] MEDS: Insulin LISPRO 300 UNITS/3 ML VIAL SQ SCH ×4 (09:03→21:20)
[2016-12-14] MEDS: Insulin DETEMIR 100 UNIT/ML X5UNITS SQ SCH (09:03)
[2016-12-14] MEDS: Folic Acid 1 MG TABLET PO SCH (09:04)
[2016-12-14] MEDS: Cholecalciferol (D-3) 1,000 UNIT TABLET PO SCH (09:04)
[2016-12-14] MEDS: Bumetanide 1 MG/4 ML VIAL IVP SCH ×2 (09:04→17:13)
[2016-12-14] MEDS: Cetaphil Lotion 473 ML BOTTLE TP SCH ×2 (09:04→21:25)
[2016-12-14] MEDS: Spironolactone 25 MG TABLET PO SCH (09:04)
[2016-12-14] MEDS: *HR* Amiodarone 200 MG TABLET PO SCH (09:04)
[2016-12-14] MEDS: Metoprolol XL (24 HR) Succ 25 MG TAB.ER.24H PO SCH (09:04)
[2016-12-14] MEDS: Isosorbide MONOnitrate (24 HR) 60 MG TAB.ER.24H PO SCH (09:04)
--- NOTE | 2016-12-14 09:29 | Palliative Progress Note ---
Date of Encounter: 12/14/16 Time of Encounter: 09:27 - Assessment and plan (1) Anxiety Current Visit: Yes Status: Acute Assessment and plan: Ms. Jeong's nurse reports increased anxiety/agitation last night. She has used 3 doses of lorazepam in the past 24 hours. Continue to monitor. Will transition to oral lorazepam tomorrow. Monitor use today. (2) Ascites Current Visit: Yes Status: Acute Assessment and plan: Ms. Jeong continues to have regular paracentesis. She reports her ascites is "tolerable" at this time. Last paracentesis was 12/11/16. Consider placement of abdominal PleurX catheter depending on goals of care. Qualifiers: Ascites type: other type Qualified Code(s): R18.8 - Other ascites (3) Counseling regarding advanced care planning and goals of care Current Visit: Yes Status: Acute Assessment and plan: Goals of care discussion with family and palliative care team yesterday. Awaiting consults and further discussion. (4) Generalized pain Current Visit: Yes Status: Acute Assessment and plan: Ms. Jeong is using [place] as needed for generalized pain. She has used 3 doses in the past 24 hours. Continue to monitor. (5) Itching Current Visit: Yes Status: Acute Assessment and plan: Use cetaphil as needed with diphehydramine. - Time Spent With Patient Total time spent is greater than 50% in coordination of care (as documented) at patient's floor/unit and/or counseling patient: - Subjective Interval history: Ms. Jeong is sitting up in bed eating morning meal. She denies pain or shortness of breath. She reports increasing ascites, but it is tolerable. - Constitutional Vitals: Abnormal lab results WBC 13.8 K/mcL (4.3-11.1) H 12/13/16 12:20 Hgb 9.5 g/dL (11.5-15.4) L 12/13/16 12:20 Hct 31.3 % (35.3-44.9) L 12/13/16 12:20 MCV 78.6 fL (83.0-100.0) L 12/13/16 12:20 MCH 23.9 pg (28.0-33.3) L 12/13/16 12:20 MCHC 30.4 g/dL (31.6-35.5) L 12/13/16 12:20 RDW 19.3 % (11.5-14.5) H 12/13/16 12:20 Neutrophils # 10.5 K/mcL (1.6-8.9) H 12/13/16 12:20 Nucleated RBCs/100 WBC 0.2 /100 WBC (0) H 12/10/16 07:38 PT 12.5 Seconds (9.4-12.1) H 12/13/16 12:20 Potassium 5.0 mEq/L (3.5-4.5) H 12/13/16 12:20 BUN 50 mg/dL (7-20) H 12/13/16 12:20 Creatinine 2.82 mg/dL (0.57-1.11) H 12/13/16 12:20 Est GFR ( Amer) 20 (> 60) L 12/13/16 12:20 Est GFR (Non-Af Amer) 16 (> 60) L 12/13/16 12:20 Glucose 180 mg/dL (70-99) H 12/13/16 12:20 POC Glucose 202 (58-89) H 12/14/16 07:38 Hemoglobin A1c 6.5 % (-5.6) H 12/04/16 11:54 Calculated Osmolality 304 (280-300) H 12/13/16 12:20 Iron 19 mcg/dL (50-170) L 12/05/16 12:45 % Saturation 7 % (15-50) L 12/05/16 12:45 Albumin 2.6 g/dL (3.5-5.0) L 12/11/16 17:37 Albumin (PEP) 3.17 g/dL (3.75-5.01) L 12/05/16 12:45 Albumin/Globulin Ratio 0.8 (1.1-2.2) L 12/11/16 17:37 Prealbumin 12.0 mg/dL (16.0-38.0) L 12/08/16 06:11 Fjman-3-Najcgnroi 0.47 g/dL (0.19-0.46) H 12/05/16 12:45 25-OH Vitamin D Total 9 ng/mL (30-80) L 12/07/16 05:48 PTH Intact 365.6 pg/ml (8.5-72.5) H 12/05/16 12:45 Urine Clarity Cloudy (Clear) A 12/04/16 12:49 Urine Protein 100 mg/dL (Neg-Trace) H 12/04/16 12:49 Ur Squamous Epith Cells Many per lpf (None-Few) H 12/04/16 12:49 Protein/Creatinin Ratio 1.69 mg/mg (0-0.20) H 12/05/16 18:00 Urine Total Protein 183 mg/dL (1-14) H 12/05/16 18:00 Free [place] LC, Quant 9.49 mg/dL (0.33-1.94) H 12/05/16 12:45 Free [place]ambda LC, Quant 7.86 mg/dL (0.57-2.63) H 12/05/16 12:45 General appearance: Present: cooperative, no acute distress Exam: 76 year old female appearing chronically ill. She is alert and able to carry conversation, but is pleasantly confused about some topics. - Respiratory Respiratory exam: Absent: accessory muscle use, respiratory distress, wheezes, tachypnea - GI/Abdominal GI/Abdominal exam: Present: firm. Absent: tenderness - Expanded Abdominal Exam GI/Abdominal exam: Present: ascites - Extremities Exam Extremities exam: Present: pedal edema - Expanded Lower Extremity Exam Lower leg exam: Present: swelling - Neurological Exam Neurological exam: Present: alert, strengths equal and symetr throughout - Psychiatric Psychiatric exam: Absent: agitated, anxious - Skin Skin exam: Present: dry, warm Palliative Quality Palliative Quality: Screen for Code Status: Yes, Screen for Goals of Care: Yes, Screen for Pain: Yes, If Pain Regimen Started, Initiate Bowel Regimen: NA, Screen for Nausea/Vomitting: Yes Code Status: 12/12/16 14:26 DNR [Resuscitation Status: Active] [RES] Routine Comment: Resuscitation Status: DNR-Comfort Care-Arrest 12/13/16 15:13 DNR [Resuscitation Status: Active] [RES] Routine Comment: Resuscitation Status: DNR-Comfort Care - Labs CBC & Chem 7: 12/13/16 12:20 12/13/16 12:20 Labs: Laboratory Results - last 24 hr 12/12/16 12/13/16 12/13/16 21:31 07:41 11:13 WBC RBC Hgb Hct MCV MCH MCHC RDW Plt Count MPV Immature Gran % Seg Neutrophils % Lymphocytes % Monocytes % Eosinophils % Basophils % Neutrophils # Lymphocytes # Monocytes # Eosinophils # Basophils # PT INR APTT Sodium 137 Potassium 5.0 H Chloride 102 Carbon Dioxide 28 BUN 49 H Creatinine 2.73 H Est GFR ( Amer) 21 L Est GFR (Non-Af Amer) 17 L BUN/Creatinine Ratio 18 Glucose 170 H POC Glucose 245 H 174 H Calculated Osmolality 301 H Calcium 10.2 Troponin I 12/13/16 12/13/16 12/13/16 11:30 12:04 12:20 WBC 13.8 H RBC 3.98 Hgb 9.5 L Hct 31.3 L MCV 78.6 L MCH 23.9 L MCHC 30.4 L RDW 19.3 H Plt Count 322 MPV 10.4 Immature Gran % 0.7 Seg Neutrophils % 76.1 Lymphocytes % 11.8 Monocytes % 7.2 Eosinophils % 3.6 Basophils % 0.6 Neutrophils # 10.5 H Lymphocytes # 1.6 Monocytes # 1.0 Eosinophils # 0.5 Basophils # 0.1 PT INR APTT Sodium Potassium Chloride Carbon Dioxide BUN Creatinine Est GFR ( Amer) Est GFR (Non-Af Amer) BUN/Creatinine Ratio Glucose POC Glucose 186 H 184 H Calculated Osmolality Calcium Troponin I 12/13/16 12/13/16 12/13/16 12:20 12:20 12:20 WBC RBC Hgb Hct MCV MCH MCHC RDW Plt Count MPV Immature Gran % Seg Neutrophils % Lymphocytes % Monocytes % Eosinophils % Basophils % Neutrophils # Lymphocytes # Monocytes # Eosinophils # Basophils # PT 12.5 H INR 1.2 APTT 27.4 Sodium 138 Potassium 5.0 H Chloride 102 Carbon Dioxide 29 BUN 50 H Creatinine 2.82 H Est GFR ( Amer) 20 L Est GFR (Non-Af Amer) 16 L BUN/Creatinine Ratio 18 Glucose 180 H POC Glucose Calculated Osmolality 304 H Calcium 10.1 Troponin I 0.03 12/13/16 12/14/16 15:04 07:38 WBC RBC Hgb Hct MCV MCH MCHC RDW Plt Count MPV Immature Gran % Seg Neutrophils % Lymphocytes % Monocytes % Eosinophils % Basophils % Neutrophils # Lymphocytes # Monocytes # Eosinophils # Basophils # PT INR APTT Sodium Potassium Chloride Carbon Dioxide BUN Creatinine Est GFR ( Amer) Est GFR (Non-Af Amer) BUN/Creatinine Ratio Glucose POC Glucose 217 H 202 H Calculated Osmolality Calcium Troponin I - Impressions Impressions Head CT 12/13/16 12:06 IMPRESSION: No acute intracranial abnormality. Dr. De La Rosa was notified 12:21 p.m. on 12/13/2016. D/ / 12/13/2016 12:39:30 Ezra Rutledge MD / manuel Interpreting Provider: Ezra Rutledge MD - ABG Interpretation ABG results: PT/INR, D-dimer PT 12.5 Seconds (9.4-12.1) H 12/13/16 12:20 Consult Discharge Plan - Plan Referrals: Dima Juarez MD [Primary Care Provider] - 12/13/16 11:30 am (Please follow up as schedule...) Breanna Hernandez MD [Partnered Physician] - 12/17/16 2:45 pm
--- NOTE | 2016-12-14 11:49 | Nephrology Progress Note ---
Date of Encounter: 12/14/16 Time of Encounter: 11:45 - Assessment and Plan (1) Acute kidney injury superimposed on chronic kidney disease Current Visit: Yes Status: Acute Last SCr yesterday noted at 2.82 GFR within range of fluctuation. await new labs today UOP documented at 200cc for the whole day, unclear if accurate but daily weights the same in the past 2 days Continue to avoid nephrotoxins if possible (2) Adenocarcinoma Current Visit: Yes Status: Acute Care per oncology but awaiting decisions form the family for care (3) Hyperkalemia Current Visit: Yes Status: Acute Potassium noted elevated as of yesterday at 5.0 on aldactone, may need to decrease dose if persistent Renal diet advised as well (4) Hepatic cirrhosis Current Visit: Yes Status: Acute Continue diuresis with bumex and aldcato e May add albumin prn especially when the next paracentesis planned Qualifiers: Hepatic cirrhosis type: unspecified hepatic cirrhosis Ascites presence: with ascites Qualified Code(s): K74.60 - Unspecified cirrhosis of liver (5) CKD (chronic kidney disease) stage 4, GFR 15-29 ml/min Current Visit: No Status: Chronic GFR at baseline appears to be teens to 20s Subjective Principal diagnosis: NYDIA, CKD IV, Ascites, Edema, HTN Interval history: Interim events noted. Pt seen and examined s/p "stroke code" yesterday after being found unresponsive. Paracentesisi deferred as a result. Goals of care still being formulated with possible family meeting for friday Objective - Vital Signs Vital signs: Vital Signs Temp Pulse Resp BP Pulse Ox 12/14/16 11:17 97.2 F L 68 16 142/57 93 L 12/14/16 07:36 97.5 F L 67 16 139/50 93 L 12/14/16 04:37 98.6 F 78 17 184/66 96 12/13/16 23:42 98.3 F 67 17 168/62 96 12/13/16 22:35 175/74 12/13/16 21:46 186/68 12/13/16 20:56 95 12/13/16 20:29 98.3 F 62 18 218/65 95 12/13/16 15:02 98.3 F 65 16 156/58 97 Intake and Output 12/13/16 12/14/16 12/14/16 23:59 07:59 15:59 Output Total 200 / 200 300 / 300 Balance -200 / -200 -300 / -300 Output: Urine 200 / 200 300 / 300 Other: # Voids 1 Weight 92.5 kg Blood Glucose* 202 204 Patient Weight 12/14/16 23:59 Weight 92.5 kg - General Appearance General appearance: Present: chronically ill EENT: Present: ATNC, mucous membranes moist Neck: Present: no JVD, supple Additional Comments: good areation ant bilat Cardiology: Present: edema (LE bilat), normal S1, normal S2 Gastrointestinal: Present: no tenderness, no guarding, distended Integumentary: Present: warm and dry Neurologic: Present: no focal deficit Musculoskeletal: Present: no deformities Psychiatric: Present: mood/affect appropriate (anxious) - Lab 12/15/16 06:42 12/15/16 06:42 Most recent lab results Calcium 10.1 mg/dL (8.6-10.8) 12/13/16 12:20 Phosphorus 3.2 mg/dL (2.3-4.7) 12/10/16 07:38 Urine Creatinine 108 mg/dL 12/05/16 18:00 Urine Total Protein 183 mg/dL (1-14) H 12/05/16 18:00 Consult Discharge Plan - Plan Referrals: Dima Juarez MD [Primary Care Provider] - (web request sent on 12/15/16) Breanna Hernandez MD [Partnered Physician] - 12/17/16 2:45 pm
[2016-12-14 12:02] LABS: Basophils # 0.1 K/mcL (0.0-0.2); Basophils % 0.6 %; Eosinophils # 0.5 K/mcL (0.0-0.6); Eosinophils % 3.9 %; Hematocrit 30.9 % (35.3-44.9); Hemoglobin 9.3 g/dL (11.5-15.4); Immature Granulocytes % 0.6 % (0-4); Lymphocytes # 1.3 K/mcL (0.6-4.6); Lymphocytes % 9.8 %; Mean Corpuscular HGB Conc 30.1 g/dL (31.6-35.5); Mean Corpuscular Hemoglobin 23.7 pg (28.0-33.3); Mean Corpuscular Volume 78.8 fL (83.0-100.0); Mean Platelet Volume 10.4 fL (9.4-12.4); Monocytes % 7.2 %; Neutrophils # 10.6 K/mcL (1.6-8.9); Platelet Count 327 K/mcL (140-400); Red Blood Count 3.92 M/mcL (3.82-4.97); Red Cell Distribution Width 19.7 % (11.5-14.5); Segmented Neutrophils % 77.9 %
[2016-12-14 12:16] LABS: Albumin 2.6 g/dL (3.5-5.0); Albumin/Globulin Ratio 0.8 (1.1-2.2); Bilirubin,Total 0.4 mg/dL (0.2-1.2); Calcium 10.2 mg/dL (8.6-10.8); Globulin 3.1 g/dL (2.4-3.5); Potassium 5.2 mEq/L (3.5-4.5); Total Protein 5.7 g/dL (6.0-8.3)
--- NOTE | 2016-12-14 17:34 | Internal Med Progress Note ---
Date of Encounter: 12/14/16 Time of Encounter: 17:31 - Assessment and plan (1) CVA (cerebral vascular accident) Current Visit: No Status: Acute Assessment and plan: stroke code was called as patient was unresponsive. Stat CT scan done and patient was evaluated by teleneurology. not a candidate for tPA as she has active malignancy ( GJ junction) recommended no further work up in terms Of CVA. case discussed with local neurology. Neurology will see tomorrow 12/14/2016 no further worsening : neurologically will hold neurology consult will follow closely Qualifiers: CVA mechanism: unspecified Qualified Code(s): I63.9 - Cerebral infarction, unspecified (2) Adenocarcinoma of esophagus Current Visit: Yes Status: Acute Assessment and plan: GE junction [place]. Underwent recent EGD scopy diagnosis discussed with patient. her sister at bedside. all questions answered. Oncology/Nephrology/ GI/Palliative on board. will follow recommendations. 12/13/2016 Oncology on board case discussed in tumor board. oncologist discussed option with family and patient. will await for family decision 12/14/2016 palliative care on board and oncology has discussed options will await for family decision (3) Cellulitis Current Visit: Yes Status: Acute Assessment and plan: Day 6 Ancef Her cellulitis is very well controlled. The reason for encephalopathy is possible cellulitis. We will continue present treatment. 12/11/2016 cellulitis getting better. day 8 antibiotics will stop tomorrow 12/12/2016 will stop abx tomorrow cellulitis improving. Qualifiers: Site of cellulitis: extremity Site of cellulitis of extremity: lower extremity Laterality: right Qualified Code(s): L03.115 - Cellulitis of right lower limb (4) Ascites Current Visit: Yes Status: Acute Assessment and plan: Patient is scheduled for abdominal aspiration tomorrow 12/11/2016 S/P abdominal paracentesis more than 5 lit removed. family and patient would like to discuss option of palliative care. 12/12/2016 has abdominal pain and distention. possible tap tomorrow if agrees on hospice then pleurex in peritoneal cavity. 12/13/2016 will have repeat ascitic tap on Friday. 12/14/2016 will tap on Friday Qualifiers: Ascites type: other type Qualified Code(s): R18.8 - Other ascites (5) Bradycardia Current Visit: Yes Status: Acute Assessment and plan: Known to have bradycardia. Heart rate is 50s and 60s. Serum digoxin level is therapeutic (6) CKD (chronic kidney disease) Current Visit: Yes Status: Acute Assessment and plan: Creatinine 2.68 Stable Will follow renal recommendations. Qualifiers: Chronic kidney disease stage: stage 4 (severe) Qualified Code(s): N18.4 - Chronic kidney disease, stage 4 (severe) (7) HTN (hypertension) Current Visit: Yes Status: Acute Assessment and plan: Will continue home medications Qualifiers: Hypertension type: essential hypertension Qualified Code(s): I10 - Essential (primary) hypertension (8) DVT prophylaxis Current Visit: Yes Status: Acute Assessment and plan: ICD. - Subjective Interval history: Seen and examined. Chart reviewed. The patient presented similarly better as compared to yesterday. She still has a generalized weakness and fatigue. 12/11/2016 seen and examined. no new complaints S/P drainage of ascitic fluid. patient prefers to stay one more day family at bedside would like to discuss option of palliative care 12/12/2016 seen and examined. she feels weak and not ready for home. diagnosis discuss at length regarding GE junction [place] Patient's sister at bedside. GI/Nephrology/Oncology/palliative care on board will follow recommendations. 12/13/2016 seen and examined. stroke code was called as patient was unresponsive. Stat CT scan done and patient was evaluated by teleneurology. recommended no further work up in terms Of CVA. 12/14/2012 no new complaints has some anxiety episodes which were resolved with benzos family at bedside will keep close monitoring - Constitutional Vitals: Temp Pulse Resp BP Pulse Ox 97.9 F 67 16 158/68 94 L 12/14/16 16:27 12/14/16 16:27 12/14/16 16:27 12/14/16 16:27 12/14/16 16:27 General appearance: Present: A&O X 3, pleasant, answers questions appropriately - Head Head exam: Present: atraumatic, normocephalic - Eye Eye exam: Present: PERRL, conjuntiva pink, sclera anicteric Pupils: Present: PERRL - Neck Neck exam general surgery: Present: supple, trachea midline. Absent: lymphadenopathy - Respiratory Respiratory exam: Present: CTAB. Absent: accessory muscle use, rales, rhonchi, wheezes - Cardiovascular Cardiovascular exam: Present: RRR, +S1, +S2. Absent: diastolic murmur, gallop, rubs, systolic murmur - GI/Abdominal GI/Abdominal exam: Present: normal bowel sounds, soft, no peritoneal signs. Absent: distended, tenderness - Extremities Exam Extremities exam: Present: warm, radial pulses palpable and symetrical. Absent : calf tenderness, cyanotic, pedal edema - Neurological Exam Neurological exam: Present: CN II-XII intact, oriented X3, no focal deficits. Absent: pronater drift, facial droop, speech deficit - Skin Skin exam: Present: dry, intact Internal Medicine: Result - Labs CBC & Chem 7: 12/14/16 11:56 12/14/16 11:56 Labs: Short CBC 12/14/16 Range/Units 11:56 WBC 13.6 H (4.3-11.1) K/mcL Hgb 9.3 L (11.5-15.4) g/dL Hct 30.9 L (35.3-44.9) % Plt Count 327 (140-400) K/mcL Neutrophils # 10.6 H (1.6-8.9) K/mcL BMP 12/14/16 11:56 Sodium 138 Potassium 5.2 H Chloride 103 Carbon Dioxide 27 BUN 51 H Creatinine 2.87 H Glucose 188 H Calcium 10.2 Liver Function 12/14/16 Range/Units 11:56 Total Bilirubin 0.4 (0.2-1.2) mg/dL AST 40 H (5-34) Units/L ALT 14 (0-55) Units/L Alkaline Phosphatase 99 (38-126) Units/L Albumin 2.6 L (3.5-5.0) g/dL - ABG Interpretation ABG results: PT/INR, D-dimer PT 12.5 Seconds (9.4-12.1) H 12/13/16 12:20 - Impressions Impressions Head CT 12/13/16 12:06 IMPRESSION: No acute intracranial abnormality. Dr. De La Rosa was notified 12:21 p.m. on 12/13/2016. D/ / 12/13/2016 12:39:30 Ezra Rutledge MD / manuel Interpreting Provider: Ezra Rutledge MD Consult Discharge Plan - Plan Referrals: Dima Juarez MD [Primary Care Provider] - 12/13/16 11:30 am (Please follow up as schedule...) Breanna Hernandez MD [Partnered Physician] - 12/17/16 2:45 pm
[2016-12-14] MEDS: Nicotine 21 MG PATCH.TD24 TD SCH (19:21)
[2016-12-14] MEDS: rOPINIRole 1 MG TABLET PO SCH (21:20)
[2016-12-14] MEDS: traZODone 50 MG TABLET PO SCH (21:20)
[2016-12-15] MEDS: *HR* Heparin 5,000 UNIT/ML VIAL SQ SCH ×2 (06:36→17:31)
[2016-12-15 07:09] LABS: Basophils # 0.1 K/mcL (0.0-0.2); Basophils % 0.6 %; Eosinophils # 0.5 K/mcL (0.0-0.6); Hematocrit 31.9 % (35.3-44.9); Hemoglobin 9.5 g/dL (11.5-15.4); Immature Granulocytes % 0.7 % (0-4); Lymphocytes # 1.2 K/mcL (0.6-4.6); Lymphocytes % 9.3 %; Mean Corpuscular HGB Conc 29.8 g/dL (31.6-35.5); Mean Corpuscular Hemoglobin 23.4 pg (28.0-33.3); Mean Corpuscular Volume 78.6 fL (83.0-100.0); Mean Platelet Volume 10.6 fL (9.4-12.4); Monocytes % 8.2 %; Neutrophils # 9.6 K/mcL (1.6-8.9); Platelet Count 295 K/mcL (140-400); Red Blood Count 4.06 M/mcL (3.82-4.97); Red Cell Distribution Width 19.9 % (11.5-14.5); Segmented Neutrophils % 77.2 %
[2016-12-15 07:12] LABS: Albumin 2.5 g/dL (3.5-5.0); Albumin/Globulin Ratio 0.7 (1.1-2.2); Bilirubin,Total 0.4 mg/dL (0.2-1.2); Globulin 3.4 g/dL (2.4-3.5); Total Protein 5.9 g/dL (6.0-8.3)
[2016-12-15] MEDS: Isosorbide MONOnitrate (24 HR) 60 MG TAB.ER.24H PO SCH (07:46)
[2016-12-15] MEDS: Metoprolol XL (24 HR) Succ 25 MG TAB.ER.24H PO SCH (07:47)
[2016-12-15] MEDS: Folic Acid 1 MG TABLET PO SCH (07:47)
[2016-12-15] MEDS: Cholecalciferol (D-3) 1,000 UNIT TABLET PO SCH (07:47)
[2016-12-15] MEDS: Spironolactone 25 MG TABLET PO SCH (07:47)
[2016-12-15] MEDS: *HR* Amiodarone 200 MG TABLET PO SCH (07:47)
[2016-12-15] MEDS: Insulin DETEMIR 100 UNIT/ML X5UNITS SQ SCH (07:47)
[2016-12-15] MEDS: Cetaphil Lotion 473 ML BOTTLE TP SCH ×2 (07:48→20:21)
[2016-12-15] MEDS: Nicotine 21 MG PATCH.TD24 TD SCH (07:48)
[2016-12-15] MEDS: Insulin LISPRO 300 UNITS/3 ML VIAL SQ SCH ×4 (07:48→20:21)
[2016-12-15] MEDS: Bumetanide 1 MG/4 ML VIAL IVP SCH ×2 (07:48→17:31)
[2016-12-15] MEDS: *HR* HYDROcodone/Acet 5/325 mg TABLET PO PRN (09:48)
--- NOTE | 2016-12-15 09:51 | Palliative Progress Note ---
Date of Encounter: 12/15/16 Time of Encounter: 09:49 - Assessment and plan (1) Anxiety Current Visit: Yes Status: Acute Assessment and plan: Ms. Jeong's nurse reports increased anxiety/agitation last night. She has used 3 doses of lorazepam in the past 24 hours. Continue to monitor. Will transition to oral lorazepam every 6 hours as needed. Monitor use today. (2) Ascites Current Visit: Yes Status: Acute Assessment and plan: Ms. Jeong continues to have regular paracentesis. She reports her ascites is increasing. Last paracentesis was 12/11/16. Consider placement of abdominal PleurX catheter tomorrow. Qualifiers: Ascites type: other type Qualified Code(s): R18.8 - Other ascites (3) Counseling regarding advanced care planning and goals of care Current Visit: Yes Status: Acute Assessment and plan: Goals of care discussion with family and palliative care team yesterday. Awaiting consults and further discussion. (4) Generalized pain Current Visit: Yes Status: Acute Assessment and plan: Ms. Jeong is using [place] as needed for generalized pain. She has used 2 doses in the past 24 hours. Continue to monitor. (5) Itching Current Visit: Yes Status: Acute Assessment and plan: Use cetaphil as needed with diphehydramine. - Time Spent With Patient Total time spent is greater than 50% in coordination of care (as documented) at patient's floor/unit and/or counseling patient: - Subjective Interval history: Ms. Jeong is sitting up in chair watching television. She reports increasing anxiety and nervousness throughout her hospital stay. Ms. Jeong's abdomen is more distended from yesterday. She reports increasing abdominal discomfort and pressure related to buildup of ascites. Plan for placement of abdominal Pleurx catheter tomorrow. - Constitutional Vitals: Abnormal lab results WBC 12.4 K/mcL (4.3-11.1) H 12/15/16 06:42 Hgb 9.5 g/dL (11.5-15.4) L 12/15/16 06:42 Hct 31.9 % (35.3-44.9) L 12/15/16 06:42 MCV 78.6 fL (83.0-100.0) L 12/15/16 06:42 MCH 23.4 pg (28.0-33.3) L 12/15/16 06:42 MCHC 29.8 g/dL (31.6-35.5) L 12/15/16 06:42 RDW 19.9 % (11.5-14.5) H 12/15/16 06:42 Neutrophils # 9.6 K/mcL (1.6-8.9) H 12/15/16 06:42 Nucleated RBCs/100 WBC 0.2 /100 WBC (0) H 12/10/16 07:38 PT 12.5 Seconds (9.4-12.1) H 12/13/16 12:20 Potassium 5.0 mEq/L (3.5-4.5) H 12/15/16 06:42 BUN 52 mg/dL (7-20) H 12/15/16 06:42 Creatinine 2.80 mg/dL (0.57-1.11) H 12/15/16 06:42 Est GFR ( Amer) 20 (> 60) L 12/15/16 06:42 Est GFR (Non-Af Amer) 16 (> 60) L 12/15/16 06:42 Glucose 209 mg/dL (70-99) H 12/15/16 06:42 POC Glucose 350 (58-89) H 12/14/16 20:52 Hemoglobin A1c 6.5 % (-5.6) H 12/04/16 11:54 Calculated Osmolality 304 (280-300) H 12/15/16 06:42 Iron 19 mcg/dL (50-170) L 12/05/16 12:45 % Saturation 7 % (15-50) L 12/05/16 12:45 AST 37 Units/L (5-34) H 12/15/16 06:42 Serum Total Protein 5.9 g/dL (6.0-8.3) L 12/15/16 06:42 Albumin 2.5 g/dL (3.5-5.0) L 12/15/16 06:42 Albumin (PEP) 3.17 g/dL (3.75-5.01) L 12/05/16 12:45 Albumin/Globulin Ratio 0.7 (1.1-2.2) L 12/15/16 06:42 Prealbumin 12.0 mg/dL (16.0-38.0) L 12/08/16 06:11 Cavoi-6-Zwclaphsg 0.47 g/dL (0.19-0.46) H 12/05/16 12:45 25-OH Vitamin D Total 9 ng/mL (30-80) L 12/07/16 05:48 PTH Intact 365.6 pg/ml (8.5-72.5) H 12/05/16 12:45 Urine Clarity Cloudy (Clear) A 12/04/16 12:49 Urine Protein 100 mg/dL (Neg-Trace) H 12/04/16 12:49 Ur Squamous Epith Cells Many per lpf (None-Few) H 12/04/16 12:49 Protein/Creatinin Ratio 1.69 mg/mg (0-0.20) H 12/05/16 18:00 Urine Total Protein 183 mg/dL (1-14) H 12/05/16 18:00 Free [place] LC, Quant 9.49 mg/dL (0.33-1.94) H 12/05/16 12:45 Free [place] LC, Quant 7.86 mg/dL (0.57-2.63) H 12/05/16 12:45 General appearance: Present: cooperative, no acute distress Exam: 76-year-old female patient appearing chronically ill. Abdomen distended with ascites, tearful at times. - Eye Eye exam: Present: EOMI - Respiratory Respiratory exam: Present: decreased breath sounds. Absent: accessory muscle use, prolonged expiratory phase, respiratory distress - Cardiovascular Cardiovascular exam: Present: RRR - GI/Abdominal GI/Abdominal exam: Present: distended, firm. Absent: tenderness - Expanded Abdominal Exam GI/Abdominal exam: Present: ascites - Extremities Exam Extremities exam: Present: pedal edema - Expanded Lower Extremity Exam Lower leg exam: Present: swelling (Moderate edema of bilateral lower extremities ) - Neurological Exam Neurological exam: Present: alert (Pleasantly confused, but able to hold and participate in conversation.) - Psychiatric Psychiatric exam: Present: anxious Palliative Quality Palliative Quality: Screen for Code Status: Yes, Screen for Goals of Care: Yes, Screen for Pain: Yes, If Pain Regimen Started, Initiate Bowel Regimen: NA, Screen for Nausea/Vomitting: Yes Code Status: 12/12/16 14:26 DNR [Resuscitation Status: Active] [RES] Routine Comment: Resuscitation Status: DNR-Comfort Care-Arrest 12/13/16 15:13 DNR [Resuscitation Status: Active] [RES] Routine Comment: Resuscitation Status: DNR-Comfort Care - Labs CBC & Chem 7: 12/15/16 06:42 12/15/16 06:42 Labs: Laboratory Results - last 24 hr 12/13/16 12/14/16 12/14/16 20:25 11:19 11:56 WBC 13.6 H RBC 3.92 Hgb 9.3 L Hct 30.9 L MCV 78.8 L MCH 23.7 L MCHC 30.1 L RDW 19.7 H Plt Count 327 MPV 10.4 Immature Gran % 0.6 Seg Neutrophils % 77.9 Lymphocytes % 9.8 Monocytes % 7.2 Eosinophils % 3.9 Basophils % 0.6 Neutrophils # 10.6 H Lymphocytes # 1.3 Monocytes # 1.0 Eosinophils # 0.5 Basophils # 0.1 Sodium Potassium Chloride Carbon Dioxide BUN Creatinine Est GFR ( Amer) Est GFR (Non-Af Amer) BUN/Creatinine Ratio Glucose POC Glucose 286 H 204 H Calculated Osmolality Calcium Total Bilirubin AST ALT Alkaline Phosphatase Serum Total Protein Albumin Globulin Albumin/Globulin Ratio 12/14/16 12/14/16 12/14/16 11:56 16:29 20:52 WBC RBC Hgb Hct MCV MCH MCHC RDW Plt Count MPV Immature Gran % Seg Neutrophils % Lymphocytes % Monocytes % Eosinophils % Basophils % Neutrophils # Lymphocytes # Monocytes # Eosinophils # Basophils # Sodium 138 Potassium 5.2 H Chloride 103 Carbon Dioxide 27 BUN 51 H Creatinine 2.87 H Est GFR ( Amer) 19 L Est GFR (Non-Af Amer) 16 L BUN/Creatinine Ratio 18 Glucose 188 H POC Glucose 205 H 350 H Calculated Osmolality 305 H Calcium 10.2 Total Bilirubin 0.4 AST 40 H ALT 14 Alkaline Phosphatase 99 Serum Total Protein 5.7 L Albumin 2.6 L Globulin 3.1 Albumin/Globulin Ratio 0.8 L 12/15/16 12/15/16 06:42 06:42 WBC 12.4 H RBC 4.06 Hgb 9.5 L Hct 31.9 L MCV 78.6 L MCH 23.4 L MCHC 29.8 L RDW 19.9 H Plt Count 295 MPV 10.6 Immature Gran % 0.7 Seg Neutrophils % 77.2 Lymphocytes % 9.3 Monocytes % 8.2 Eosinophils % 4.0 Basophils % 0.6 Neutrophils # 9.6 H Lymphocytes # 1.2 Monocytes # 1.0 Eosinophils # 0.5 Basophils # 0.1 Sodium 137 Potassium 5.0 H Chloride 103 Carbon Dioxide 26 BUN 52 H Creatinine 2.80 H Est GFR ( Amer) 20 L Est GFR (Non-Af Amer) 16 L BUN/Creatinine Ratio 19 Glucose 209 H POC Glucose Calculated Osmolality 304 H Calcium 10.0 Total Bilirubin 0.4 AST 37 H ALT 13 Alkaline Phosphatase 113 Serum Total Protein 5.9 L Albumin 2.5 L Globulin 3.4 Albumin/Globulin Ratio 0.7 L - ABG Interpretation ABG results: PT/INR, D-dimer PT 12.5 Seconds (9.4-12.1) H 12/13/16 12:20 Consult Discharge Plan - Plan Referrals: Dima Juarez MD [Primary Care Provider] - (web request sent on 12/15/16) Breanna Hernandez MD [Partnered Physician] - 12/17/16 2:45 pm
[2016-12-15] MEDS ORDERED: *HR* LORazepam 0.5 MG TABLET PO PRN (09:53)
--- NOTE | 2016-12-15 11:11 | Neurology - Consult Note ---
Date of Encounter: 12/15/16 Time of Encounter: 08:25 Assessment and Plan (1) TIA (transient ischemic attack) Current Visit: Yes Status: Acute The patient has history of multiple medical conditions with prolonged hospitalization, recently has an episode of some confusion in his as well as strokelike symptoms certainly she was not a candidate for any TPA therapy, symptoms has resolved now no evidence of any focal motor weakness or any difficulty with her speech of confusion she seems to be back to her baseline. She has multiple risk factors for stroke and with the concern of atrial fibrillation obviously dust and other major risk factor. Continue to monitor and make sure she is not having any arrhythmias and if desiccation might need to be anticoagulated on the other hand he may start her on antiplatelet therapy with aspirin only, if it is not a contraindication from GI perspective As far as his stroke workup is concern though we may do carotid and echocardiogram but considering her overall condition and with her current status of DNR CC, even if he finds any significant abnormality I do not think that she is a candidate for any surgical intervention at this time. In this situation I think best will be managed by medical treatment with antiplatelet therapy along with a statin for secondary stroke prevention and at the same time continue to treat her underlying anabolic and infectious etiologies. Qualifiers: Transient cerebral ischemia type: unspecified Qualified Code(s): G45.9 - Transient cerebral ischemic attack, unspecified (2) Weakness generalized Current Visit: No Status: Acute History of Present Illness HPI: Ms. 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 Patient's symptoms has been resolved and she is not having any speech deficit needle has any other focal motor weakness. Palliative care has been consulted and is being following the patient. Stat CT scan did not show any stroke or bleed Past Med Surg Social Fam HX - Past Medical History Medical history: arthritis, asthma, atrial fibrillation, CHF, COPD, coronary artery disease, DVT, dementia, diabetes, GERD, hyperlipidemia, hypertension, myocardial infarction, peripheral artery disease, pulmonary embolus, renal disease, thyroid disease, TIA, venous stasis, other Psychiatric history: anxiety, depression - Past Surgical History Surgical History: angioplasty/stent, cholecystectomy, hysterectomy, knee replacement, orthopedic, other, other - Social History Smoking Status: Current every day smoker Smokeless Tobacco Status: No Alcohol use: none Drug use: none - Family History Mother Family Member Ethnicity: Non- Living Status: Hx Family Cardiac Disorders: Yes Hx Family Respiratory Disorders: Yes Hx Family Cancer: Yes Hx Family GI Disorders: No Hx Family Endocrine Disorder: No Hx Family Neuromuscular Disorders: No Hx Family Neurologic Disorders: Yes Hx Family HEENT Disorders: No Hx Family Autoimmune Disorders: No Medications and Allergies Folic Acid 1 mg PO DAILY 15 Days 10/10/15 [Rx] Losartan [Cozaar] 50 mg PO DAILY tablet 10/10/15 [Rx] Levothyroxine [Synthroid] 75 mcg PO 30 10/26/15 [History] Isosorbide MONOnitrate (24 HR) [Imdur] 60 mg PO DAILY tab.er.24h 10/30/15 [Rx] Metoprolol XL (24 HR) Succ [Toprol Xl] 25 mg PO DAILY tab.er.24h 10/30/15 [Rx] Amiodarone [Cordarone] 200 mg PO DAILY 11/19/16 [History] Digoxin [Lanoxin] 0.125 mg PO DAILY 11/19/16 [History] HYDROcodone/Acet 5/325 mg [Reynolds 5-325 mg] 1 tab PO BID PRN 11/19/16 [History] Ropinirole [Requip] 1 mg PO HS 11/19/16 [History] TraZODone 50 - 100 mg PO HS 11/19/16 [History] Bumetanide [Bumetanide] 4 mg PO BID 12/04/16 [History] Duloxetine [Cymbalta] 30 mg PO DAILY 12/04/16 [History] Insulin Aspart Prot/Insuln Asp [Novolog Mix 70-30 Flexpen Syrn] 50 unit SQ BID 12/04/16 [History] Allergies azithromycin [From Zithromax] Allergy (Verified 11/19/16 17:29) Rash furosemide [From Lasix] Adverse Reaction (Verified 11/19/16 17:29) Headache ketorolac [From Toradol] Adverse Reaction (Verified 11/19/16 17:29) Hypotension All Systems: A 10-system review of systems was performed and is negative for pertinent findings except as documented above in the HPI. Physical Examination - Vital Signs Vital Signs: Initial Vital Signs Temp Pulse Resp BP Pulse Ox 97.7 F 48 20 177/72 95 12/04/16 11:23 12/04/16 11:23 12/04/16 11:23 12/04/16 11:23 12/04/16 11:23 - Exam Exam: heart s1 s2 audible, abdomen: enlarged, with ascites, EXT: pedal edema positive - Constitutional General appearance: comfortable - Neurologic Sensorimotor examination: intact Detailed motor examination: grossly full strength in all extremities Detailed sensory examination: intact Reflexes: Biceps: 1+, Triceps: 1+, Brachioradialis: 1+, Patella: 1+, Achilles: 1 + Mental Status Examination: awake, alert, oriented to person, oriented to place, oriented to time, follows commands appropriately, answers questions appropriately Cranial nerve examination: PERRL, EOMI, visual juarez intact, no facial asymmetry is present, no dysarthria Cerebellar examination: no dysmetria Results - Laboratory Findings CBC and BMP: 12/15/16 06:42 12/15/16 06:42 Abnormal lab findings: Abnormal lab results WBC 12.4 K/mcL (4.3-11.1) H 12/15/16 06:42 Hgb 9.5 g/dL (11.5-15.4) L 12/15/16 06:42 Hct 31.9 % (35.3-44.9) L 12/15/16 06:42 MCV 78.6 fL (83.0-100.0) L 12/15/16 06:42 MCH 23.4 pg (28.0-33.3) L 12/15/16 06:42 MCHC 29.8 g/dL (31.6-35.5) L 12/15/16 06:42 RDW 19.9 % (11.5-14.5) H 12/15/16 06:42 Neutrophils # 9.6 K/mcL (1.6-8.9) H 12/15/16 06:42 Nucleated RBCs/100 WBC 0.2 /100 WBC (0) H 12/10/16 07:38 PT 12.5 Seconds (9.4-12.1) H 12/13/16 12:20 Potassium 5.0 mEq/L (3.5-4.5) H 12/15/16 06:42 BUN 52 mg/dL (7-20) H 12/15/16 06:42 Creatinine 2.80 mg/dL (0.57-1.11) H 12/15/16 06:42 Est GFR ( Amer) 20 (> 60) L 12/15/16 06:42 Est GFR (Non-Af Amer) 16 (> 60) L 12/15/16 06:42 Glucose 209 mg/dL (70-99) H 12/15/16 06:42 POC Glucose 350 (58-89) H 12/14/16 20:52 Hemoglobin A1c 6.5 % (-5.6) H 12/04/16 11:54 Calculated Osmolality 304 (280-300) H 12/15/16 06:42 Iron 19 mcg/dL (50-170) L 12/05/16 12:45 % Saturation 7 % (15-50) L 12/05/16 12:45 AST 37 Units/L (5-34) H 12/15/16 06:42 Serum Total Protein 5.9 g/dL (6.0-8.3) L 12/15/16 06:42 Albumin 2.5 g/dL (3.5-5.0) L 12/15/16 06:42 Albumin (PEP) 3.17 g/dL (3.75-5.01) L 12/05/16 12:45 Albumin/Globulin Ratio 0.7 (1.1-2.2) L 12/15/16 06:42 Prealbumin 12.0 mg/dL (16.0-38.0) L 12/08/16 06:11 Ylwkj-8-Aaiwqbaup 0.47 g/dL (0.19-0.46) H 12/05/16 12:45 25-OH Vitamin D Total 9 ng/mL (30-80) L 12/07/16 05:48 PTH Intact 365.6 pg/ml (8.5-72.5) H 12/05/16 12:45 Urine Clarity Cloudy (Clear) A 12/04/16 12:49 Urine Protein 100 mg/dL (Neg-Trace) H 12/04/16 12:49 Ur Squamous Epith Cells Many per lpf (None-Few) H 12/04/16 12:49 Protein/Creatinin Ratio 1.69 mg/mg (0-0.20) H 12/05/16 18:00 Urine Total Protein 183 mg/dL (1-14) H 12/05/16 18:00 Free [place] LC, Quant 9.49 mg/dL (0.33-1.94) H 12/05/16 12:45 Free [place] LC, Quant 7.86 mg/dL (0.57-2.63) H 12/05/16 12:45 Consult Discharge Plan - Plan Referrals: Dima Juarez MD [Primary Care Provider] - (web request sent on 12/15/16) Breanna Hernandez MD [Partnered Physician] - 12/17/16 2:45 pm
--- NOTE | 2016-12-15 11:17 | Nephrology Progress Note ---
Date of Encounter: 12/15/16 Time of Encounter: 11:15 - Assessment and Plan (1) Acute kidney injury superimposed on chronic kidney disease Current Visit: Yes Status: Acute SCr remains stable at 2.8, GFR 16 UOP documented at 600cc for the whole day yesterday and 300cc so far today. Weight today significantly lower Continue to avoid nephrotoxins if possible (2) Adenocarcinoma Current Visit: Yes Status: Acute Care per oncology but awaiting decisions form the family for care (3) Hyperkalemia Current Visit: Yes Status: Acute Potassium noted elevated at 5.0 on aldactone, may need to decrease aldactone dose if persistent Renal diet advised as well (4) Hepatic cirrhosis Current Visit: Yes Status: Acute Continue diuresis with bumex and aldcatone May add albumin prn especially when the next paracentesis planned Qualifiers: Hepatic cirrhosis type: unspecified hepatic cirrhosis Ascites presence: with ascites Qualified Code(s): K74.60 - Unspecified cirrhosis of liver (5) CKD (chronic kidney disease) stage 4, GFR 15-29 ml/min Current Visit: No Status: Chronic GFR at baseline appears to be teens to 20s Subjective Principal diagnosis: NYDIA, CKD IV, Ascites, Edema, HTN Interval history: Interim events noted. Pt seen and examined with nurse at bedside appears somewhat forgetful. Had to be reminded of recent malignancy diagnosis. she is concerned with enlarging abdominal girth and wonders about next paracentesis. Per nurse, no strict fluid restriction in place at present. Surgical eval pending. Objective - Vital Signs Vital signs: Vital Signs Temp Pulse Resp BP Pulse Ox 12/15/16 08:00 95 12/15/16 07:10 98.6 F 113 14 193/67 95 12/15/16 03:49 97.7 F 63 16 162/54 96 12/14/16 23:48 97.6 F 65 18 152/60 96 12/14/16 20:52 97.9 F 65 18 168/59 96 12/14/16 16:27 97.9 F 67 16 158/68 94 L 12/14/16 11:40 93 L 12/14/16 11:17 97.2 F L 68 16 142/57 93 L Intake and Output 12/14/16 12/15/16 12/15/16 22:59 07:59 15:59 Intake Total 300 / 300 Output Total 0 / 0 Balance 300 / 300 Intake: Oral 300 / 300 Output: Urine 0 / 0 Other: Meal Breakfast Percent of Meal Consumed 100% Weight Blood Glucose* Patient Weight 12/16/16 00:59 Weight 86.8 kg - General Appearance General appearance: Present: chronically ill EENT: Present: ATNC, mucous membranes dry Neck: Present: no JVD, supple Additional Comments: good areation ant bilat Cardiology: Present: edema (lE bilat), normal S1, normal S2 Gastrointestinal: Present: no tenderness, no guarding, distended Integumentary: Present: warm and dry Neurologic: Present: disoriented Musculoskeletal: Present: no deformities Psychiatric: Present: mood/affect appropriate (anxious) - Lab 12/15/16 06:42 12/15/16 06:42 Most recent lab results Calcium 10.0 mg/dL (8.6-10.8) 12/15/16 06:42 Phosphorus 3.2 mg/dL (2.3-4.7) 12/10/16 07:38 Urine Creatinine 108 mg/dL 12/05/16 18:00 Urine Total Protein 183 mg/dL (1-14) H 12/05/16 18:00 Consult Discharge Plan - Plan Referrals: Dima Juarez MD [Primary Care Provider] - (web request sent on 12/15/16) Breanna Hernandez MD [Partnered Physician] - 12/17/16 2:45 pm
[2016-12-15] MEDS: Aspirin 81 MG TAB.CHEW PO SCH (12:09)
--- NOTE | 2016-12-15 13:50 | Event Note ---
Date of Encounter: 12/15/16 Time of Encounter: 12:05 The patient was seen today by the surgeon substance abuse prevention coordinator Dr. Rodriguez who informed the patient that she may need a possible partial resection of her esophagus. The patient was notified that Dr. Gutierrez is specialized in this sort of procedure and would be able to discuss possible options with the patient tomorrow 12/16/16. Briefly this patient was admitted with a stroke and was not a candidate for tpa. Discussion with the family and patient led to being DNR-cc code status with palliative care. The patient has adenocarcioma of the esophagus, for which endoscopic resection is not an option given how extensive the tumor is. Surgery was consulted for possible resection and determining if the patient will be a candidate for esophageal surgery for palliative purposes. Dr. Rodriguez will discuss the patient with Dr. Gutierrez who will evaluate the patient on 12/16/16 and discuss possible options at that time.
--- NOTE | 2016-12-15 14:47 | Internal Med Progress Note ---
Date of Encounter: 12/15/16 Time of Encounter: 14:45 - Assessment and plan (1) CVA (cerebral vascular accident) Current Visit: No Status: Acute Assessment and plan: stroke code was called as patient was unresponsive. Stat CT scan done and patient was evaluated by teleneurology. not a candidate for tPA as she has active malignancy ( GJ junction) recommended no further work up in terms Of CVA. case discussed with local neurology. Neurology will see tomorrow 12/14/2016 no further worsening : neurologically will hold neurology consult will follow closely 12/15/2016 still has some anxiety. has fear for appreciated surgery, renal, neurology and palliative input. Qualifiers: CVA mechanism: unspecified Qualified Code(s): I63.9 - Cerebral infarction, unspecified (2) Adenocarcinoma of esophagus Current Visit: Yes Status: Acute Assessment and plan: GE junction Adenoca. Underwent recent EGD scopy diagnosis discussed with patient. her sister at bedside. all questions answered. Oncology/Nephrology/ GI/Palliative on board. will follow recommendations. 12/13/2016 Oncology on board case discussed in tumor board. oncologist discussed option with family and patient. will await for family decision 12/14/2016 palliative care on board and oncology has discussed options will await for family decision 12/15/2016 evaluated by surgery and awaiting for input from Dr Gutierrez (3) Cellulitis Current Visit: Yes Status: Acute Assessment and plan: Day 6 Ancef Her cellulitis is very well controlled. The reason for encephalopathy is possible cellulitis. We will continue present treatment. 12/11/2016 cellulitis getting better. day 8 antibiotics will stop tomorrow 12/12/2016 will stop abx tomorrow cellulitis improving. Qualifiers: Site of cellulitis: extremity Site of cellulitis of extremity: lower extremity Laterality: right Qualified Code(s): L03.115 - Cellulitis of right lower limb (4) Ascites Current Visit: Yes Status: Acute Assessment and plan: Patient is scheduled for abdominal aspiration tomorrow 12/11/2016 S/P abdominal paracentesis more than 5 lit removed. family and patient would like to discuss option of palliative care. 12/12/2016 has abdominal pain and distention. possible tap tomorrow if agrees on hospice then pleurex in peritoneal cavity. 12/13/2016 will have repeat ascitic tap on Friday. 12/14/2016 will tap on Friday Qualifiers: Ascites type: other type Qualified Code(s): R18.8 - Other ascites (5) Bradycardia Current Visit: Yes Status: Acute Assessment and plan: Known to have bradycardia. Heart rate is 50s and 60s. Serum digoxin level is therapeutic (6) CKD (chronic kidney disease) Current Visit: Yes Status: Acute Assessment and plan: Creatinine 2.68 Stable Will follow renal recommendations. Qualifiers: Chronic kidney disease stage: stage 4 (severe) Qualified Code(s): N18.4 - Chronic kidney disease, stage 4 (severe) (7) HTN (hypertension) Current Visit: Yes Status: Acute Assessment and plan: Will continue home medications Qualifiers: Hypertension type: essential hypertension Qualified Code(s): I10 - Essential (primary) hypertension (8) DVT prophylaxis Current Visit: Yes Status: Acute Assessment and plan: ICD. - Subjective Interval history: Seen and examined. Chart reviewed. The patient presented similarly better as compared to yesterday. She still has a generalized weakness and fatigue. 12/11/2016 seen and examined. no new complaints S/P drainage of ascitic fluid. patient prefers to stay one more day family at bedside would like to discuss option of palliative care 12/12/2016 seen and examined. she feels weak and not ready for home. diagnosis discuss at length regarding GE junction AdenoCa Patient's sister at bedside. GI/Nephrology/Oncology/palliative care on board will follow recommendations. 12/13/2016 seen and examined. stroke code was called as patient was unresponsive. Stat CT scan done and patient was evaluated by teleneurology. recommended no further work up in terms Of CVA. 12/14/2012 no new complaints has some anxiety episodes which were resolved with benzos family at bedside will keep close monitoring 12/15/2016 no new complaints still has some anxiety. has fear for appreciated surgery, renal, neurology and palliative input. - Constitutional Vitals: Temp Pulse Resp BP Pulse Ox 98.0 F 59 16 181/67 96 12/15/16 11:29 12/15/16 11:29 12/15/16 11:29 12/15/16 11:29 12/15/16 11:29 General appearance: Present: A&O X 3, pleasant, answers questions appropriately - Head Head exam: Present: atraumatic, normocephalic - Eye Eye exam: Present: PERRL, conjuntiva pink, sclera anicteric Pupils: Present: PERRL - Neck Neck exam general surgery: Present: supple, trachea midline. Absent: lymphadenopathy - Respiratory Respiratory exam: Present: CTAB. Absent: accessory muscle use, rales, rhonchi, wheezes - Cardiovascular Cardiovascular exam: Present: RRR, +S1, +S2. Absent: diastolic murmur, gallop, rubs, systolic murmur - GI/Abdominal GI/Abdominal exam: Present: normal bowel sounds, soft, no peritoneal signs. Absent: distended, tenderness - Extremities Exam Extremities exam: Present: warm, radial pulses palpable and symetrical. Absent : calf tenderness, cyanotic, pedal edema - Neurological Exam Neurological exam: Present: CN II-XII intact, oriented X3, no focal deficits. Absent: pronater drift, facial droop, speech deficit - Skin Skin exam: Present: dry, intact Internal Medicine: Result - Labs CBC & Chem 7: 12/15/16 06:42 12/15/16 06:42 Labs: Short CBC 12/15/16 Range/Units 06:42 WBC 12.4 H (4.3-11.1) K/mcL Hgb 9.5 L (11.5-15.4) g/dL Hct 31.9 L (35.3-44.9) % Plt Count 295 (140-400) K/mcL Neutrophils # 9.6 H (1.6-8.9) K/mcL BMP 12/15/16 06:42 Sodium 137 Potassium 5.0 H Chloride 103 Carbon Dioxide 26 BUN 52 H Creatinine 2.80 H Glucose 209 H Calcium 10.0 Liver Function 12/15/16 Range/Units 06:42 Total Bilirubin 0.4 (0.2-1.2) mg/dL AST 37 H (5-34) Units/L ALT 13 (0-55) Units/L Alkaline Phosphatase 113 (38-126) Units/L Albumin 2.5 L (3.5-5.0) g/dL - ABG Interpretation ABG results: PT/INR, D-dimer PT 12.5 Seconds (9.4-12.1) H 12/13/16 12:20 Consult Discharge Plan - Plan Referrals: Dima Juarez MD [Primary Care Provider] - (web request sent on 12/15/16) Breanna Hernandez MD [Partnered Physician] - 12/17/16 2:45 pm
[2016-12-15] MEDS: rOPINIRole 1 MG TABLET PO SCH (20:21)
[2016-12-15] MEDS: traZODone 50 MG TABLET PO SCH (20:21)
[2016-12-16 05:33] LABS: Basophils % 0.3 %; Eosinophils # 0.5 K/mcL (0.0-0.6); Eosinophils % 3.6 %; Hematocrit 32.8 % (35.3-44.9); Immature Granulocytes % 0.6 % (0-4); Lymphocytes # 1.4 K/mcL (0.6-4.6); Lymphocytes % 11.1 %; Mean Corpuscular HGB Conc 30.5 g/dL (31.6-35.5); Mean Corpuscular Volume 78.8 fL (83.0-100.0); Mean Platelet Volume 10.5 fL (9.4-12.4); Monocytes # 0.7 K/mcL (0.0-1.3); Monocytes % 5.8 %; Neutrophils # 9.9 K/mcL (1.6-8.9); Platelet Count 333 K/mcL (140-400); Red Blood Count 4.16 M/mcL (3.82-4.97); Red Cell Distribution Width 20.3 % (11.5-14.5); Segmented Neutrophils % 78.6 %
[2016-12-16] MEDS: *HR* Heparin 5,000 UNIT/ML VIAL SQ SCH ×2 (05:36→16:07)
[2016-12-16 05:47] LABS: Albumin 2.6 g/dL (3.5-5.0); Albumin/Globulin Ratio 0.7 (1.1-2.2); Bilirubin,Total 0.5 mg/dL (0.2-1.2); Globulin 3.5 g/dL (2.4-3.5); Potassium 5.3 mEq/L (3.5-4.5); Total Protein 6.1 g/dL (6.0-8.3)
[2016-12-16 05:59] LABS: Calcium 10.4 mg/dL (8.6-10.8)
[2016-12-16] MEDS: Insulin LISPRO 300 UNITS/3 ML VIAL SQ SCH ×4 (08:38→21:29)
[2016-12-16] MEDS: Isosorbide MONOnitrate (24 HR) 60 MG TAB.ER.24H PO SCH (08:39)
[2016-12-16] MEDS: Aspirin 81 MG TAB.CHEW PO SCH (08:39)
[2016-12-16] MEDS: Spironolactone 25 MG TABLET PO SCH (08:39)
[2016-12-16] MEDS: Folic Acid 1 MG TABLET PO SCH (08:39)
[2016-12-16] MEDS: Cholecalciferol (D-3) 1,000 UNIT TABLET PO SCH (08:39)
[2016-12-16] MEDS: *HR* Amiodarone 200 MG TABLET PO SCH (08:39)
[2016-12-16] MEDS: Metoprolol XL (24 HR) Succ 25 MG TAB.ER.24H PO SCH (08:39)
[2016-12-16] MEDS: Cetaphil Lotion 473 ML BOTTLE TP SCH (08:48)
[2016-12-16] MEDS: Bumetanide 1 MG/4 ML VIAL IVP SCH ×2 (08:48→16:06)
[2016-12-16] MEDS: *HR* HYDROcodone/Acet 5/325 mg TABLET PO PRN (09:20)
[2016-12-16] MEDS: Insulin DETEMIR 100 UNIT/ML X5UNITS SQ SCH (09:20)
--- NOTE | 2016-12-16 10:41 | Palliative Progress Note ---
Date of Encounter: 12/16/16 Time of Encounter: 09:50 - Assessment and plan (1) Generalized pain Current Visit: Yes Status: Acute Assessment and plan: Continue [employer] PRN. Utilized x2 last 24hours. MOnitor (2) Anxiety Current Visit: Yes Status: Acute Assessment and plan: Continue low dose Ativan PRN. Utilized x1 last 24hours (3) Itching Current Visit: Yes Status: Acute Assessment and plan: Continue Benadryl PRN and Eucerin lotion BID (4) Counseling regarding advanced care planning and goals of care Current Visit: Yes Status: Acute Assessment and plan: Dr. De La Rosa and I met with Dr. Gutierrez as well as Dr. [place]. Patient not surgical candidate here for [facility]. Didi remains consistent for palliative care and desires [facility] hospice. Referral called. Patient will have pleurx cath placed for drainage of ascites prior to discharge. (5) Acute kidney injury superimposed on chronic kidney disease Current Visit: Yes Status: Acute (6) Ascites Current Visit: Yes Status: Acute Qualifiers: Ascites type: other type Qualified Code(s): R18.8 - Other ascites (7) Adenocarcinoma of esophagus Current Visit: Yes Status: Acute - Time Spent With Patient Total time spent is greater than 50% in coordination of care (as documented) at patient's floor/unit and/or counseling patient: 25 - 35 minutes - Subjective Interval history: Patient up in chair. Didi LEANNA Burns at bedside. Patient c/o pain "all over". Abd tenderness as well. C/o anxiety. - Constitutional Vitals: Abnormal lab results WBC 12.7 K/mcL (4.3-11.1) H 12/16/16 05:16 Hgb 10.0 g/dL (11.5-15.4) L 12/16/16 05:16 Hct 32.8 % (35.3-44.9) L 12/16/16 05:16 MCV 78.8 fL (83.0-100.0) L 12/16/16 05:16 MCH 24.0 pg (28.0-33.3) L 12/16/16 05:16 MCHC 30.5 g/dL (31.6-35.5) L 12/16/16 05:16 RDW 20.3 % (11.5-14.5) H 12/16/16 05:16 Neutrophils # 9.9 K/mcL (1.6-8.9) H 12/16/16 05:16 Nucleated RBCs/100 WBC 0.2 /100 WBC (0) H 12/10/16 07:38 PT 12.5 Seconds (9.4-12.1) H 12/13/16 12:20 Potassium 5.3 mEq/L (3.5-4.5) H 12/16/16 05:16 BUN 54 mg/dL (7-20) H 12/16/16 05:16 Creatinine 2.61 mg/dL (0.57-1.11) H 12/16/16 05:16 Est GFR ( Amer) 22 (> 60) L 12/16/16 05:16 Est GFR (Non-Af Amer) 18 (> 60) L 12/16/16 05:16 Glucose 167 mg/dL (70-99) H 12/16/16 05:16 POC Glucose 205 (58-89) H 12/15/16 20:18 Hemoglobin A1c 6.5 % (-5.6) H 12/04/16 11:54 Calculated Osmolality 303 (280-300) H 12/16/16 05:16 Iron 19 mcg/dL (50-170) L 12/05/16 12:45 % Saturation 7 % (15-50) L 12/05/16 12:45 AST 41 Units/L (5-34) H 12/16/16 05:16 Albumin 2.6 g/dL (3.5-5.0) L 12/16/16 05:16 Albumin (PEP) 3.17 g/dL (3.75-5.01) L 12/05/16 12:45 Albumin/Globulin Ratio 0.7 (1.1-2.2) L 12/16/16 05:16 Prealbumin 12.0 mg/dL (16.0-38.0) L 12/08/16 06:11 Fsiwv-6-Unnprmkrf 0.47 g/dL (0.19-0.46) H 12/05/16 12:45 25-OH Vitamin D Total 9 ng/mL (30-80) L 12/07/16 05:48 PTH Intact 365.6 pg/ml (8.5-72.5) H 12/05/16 12:45 Urine Clarity Cloudy (Clear) A 12/04/16 12:49 Urine Protein 100 mg/dL (Neg-Trace) H 12/04/16 12:49 Ur Squamous Epith Cells Many per lpf (None-Few) H 12/04/16 12:49 Protein/Creatinin Ratio 1.69 mg/mg (0-0.20) H 12/05/16 18:00 Urine Total Protein 183 mg/dL (1-14) H 12/05/16 18:00 Free [place] LC, Quant 9.49 mg/dL (0.33-1.94) H 12/05/16 12:45 Free [place]ambda LC, Quant 7.86 mg/dL (0.57-2.63) H 12/05/16 12:45 General appearance: Present: no acute distress - Respiratory Respiratory exam: Present: decreased breath sounds, CTAB - Cardiovascular Cardiovascular exam: Present: irregular rhythm - GI/Abdominal GI/Abdominal exam: Present: diminished bowel sounds, distended, firm, tenderness - Expanded Upper Extremity Exam General: Present: abrasion (+ bilateral edema lower extremities) - Neurological Exam Neurological exam: Present: alert, strengths equal and symetr throughout Additional comments: Oriented to person and place. Inappropriate statements at times. Follows simple commands - Psychiatric Psychiatric exam: Present: anxious - Skin Skin exam: Present: dry, pallor, warm Palliative Quality Palliative Quality: Screen for Code Status: Yes, Screen for Goals of Care: Yes, Screen for Pain: Yes, If Pain Regimen Started, Initiate Bowel Regimen: NA, Screen for Nausea/Vomitting: Yes Code Status: 12/12/16 14:26 DNR [Resuscitation Status: Active] [RES] Routine Comment: Resuscitation Status: DNR-Comfort Care-Arrest 12/13/16 15:13 DNR [Resuscitation Status: Active] [RES] Routine Comment: Resuscitation Status: DNR-Comfort Care - Labs CBC & Chem 7: 12/16/16 05:16 12/16/16 05:16 Labs: Laboratory Results - last 24 hr 12/15/16 12/15/16 12/15/16 07:12 12:08 16:42 WBC RBC Hgb Hct MCV MCH MCHC RDW Plt Count MPV Immature Gran % Seg Neutrophils % Lymphocytes % Monocytes % Eosinophils % Basophils % Neutrophils # Lymphocytes # Monocytes # Eosinophils # Basophils # Sodium Potassium Chloride Carbon Dioxide BUN Creatinine Est GFR ( Amer) Est GFR (Non-Af Amer) BUN/Creatinine Ratio Glucose POC Glucose 192 H 169 H 234 H Calculated Osmolality Calcium Total Bilirubin AST ALT Alkaline Phosphatase Serum Total Protein Albumin Globulin Albumin/Globulin Ratio 12/15/16 12/16/16 12/16/16 20:18 05:16 05:16 WBC 12.7 H RBC 4.16 Hgb 10.0 L Hct 32.8 L MCV 78.8 L MCH 24.0 L MCHC 30.5 L RDW 20.3 H Plt Count 333 MPV 10.5 Immature Gran % 0.6 Seg Neutrophils % 78.6 Lymphocytes % 11.1 Monocytes % 5.8 Eosinophils % 3.6 Basophils % 0.3 Neutrophils # 9.9 H Lymphocytes # 1.4 Monocytes # 0.7 Eosinophils # 0.5 Basophils # 0.0 Sodium 137 Potassium 5.3 H Chloride 103 Carbon Dioxide 27 BUN 54 H Creatinine 2.61 H Est GFR ( Amer) 22 L Est GFR (Non-Af Amer) 18 L BUN/Creatinine Ratio 21 Glucose 167 H POC Glucose 205 H Calculated Osmolality 303 H Calcium 10.4 Total Bilirubin 0.5 AST 41 H ALT 17 Alkaline Phosphatase 112 Serum Total Protein 6.1 Albumin 2.6 L Globulin 3.5 Albumin/Globulin Ratio 0.7 L - ABG Interpretation ABG results: PT/INR, D-dimer PT 12.5 Seconds (9.4-12.1) H 12/13/16 12:20 Consult Discharge Plan - Plan Referrals: Dima Juarez MD [Primary Care Provider] - 12/23/16 3:30 pm () Breanna Hernandez MD [Partnered Physician] - 12/17/16 2:45 pm Prescriptions: LORazepam [Ativan] 0.5 mg PO QID PRN #30 tablet PRN Reason: Anxiety
[2016-12-16] MEDS: Nicotine 21 MG PATCH.TD24 TD SCH (11:11)
--- NOTE | 2016-12-16 11:32 | Neurology Progress Note ---
Date of Encounter: 12/16/16 Time of Encounter: 08:05 Assessment and Plan (1) TIA (transient ischemic attack) Current Visit: Yes Status: Acute The patient has history of multiple medical conditions with prolonged hospitalization, recently has an episode of some confusion in his as well as strokelike symptoms certainly she was not a candidate for any TPA therapy, symptoms has resolved now no evidence of any focal motor weakness or any difficulty with her speech of confusion she seems to be back to her baseline. She has multiple risk factors for stroke and with the concern of atrial fibrillation obviously dust and other major risk factor. Continue to monitor and make sure she is not having any arrhythmias and if desiccation might need to be anticoagulated on the other hand he may start her on antiplatelet therapy with aspirin only, if it is not a contraindication from GI perspective As far as his stroke workup is concern though we may do carotid and echocardiogram but considering her overall condition and with her current status of DNR CC, even if he finds any significant abnormality I do not think that she is a candidate for any surgical intervention at this time. In this situation I think best will be managed by medical treatment with antiplatelet therapy along with a statin for secondary stroke prevention and at the same time continue to treat her underlying anabolic and infectious etiologies. suggest to continue on ASA 81 mg daily, seem like she will be transferring to Hospice today (2) Weakness generalized Current Visit: No Status: Acute Subjective Principal diagnosis: NYDIA, CKD IV, Ascites, Edema, HTN Interval history: stable no new neuro issues no motor defecit Objective - Constitutional Vitals: Temp Pulse Resp BP Pulse Ox 98.3 F 56 16 167/59 95 12/16/16 10:38 12/16/16 10:38 12/16/16 10:38 12/16/16 10:38 12/16/16 10:38 General appearance: Present: cooperative, A&O X 3, no acute distress, answers questions appropriately - Neurological Exam Sensorimotor examination: Present: intact Motor Examination: Present: grossly full strength in all extremities Sensation intact: Present: intact Mental Status Examination: Present: awake, alert, oriented to person, oriented to place, oriented to time, follows commands appropriately, answers questions appropriately Cranial nerve examination: Present: PERRL, EOMI, visual juarez intact, no facial asymmetry is present, no dysarthria Cerebellar examination: Present: no dysmetria Results - Laboratory Findings CBC and BMP: 12/16/16 05:16 12/16/16 05:16 Abnormal lab findings: Abnormal lab results WBC 12.7 K/mcL (4.3-11.1) H 12/16/16 05:16 Hgb 10.0 g/dL (11.5-15.4) L 12/16/16 05:16 Hct 32.8 % (35.3-44.9) L 12/16/16 05:16 MCV 78.8 fL (83.0-100.0) L 12/16/16 05:16 MCH 24.0 pg (28.0-33.3) L 12/16/16 05:16 MCHC 30.5 g/dL (31.6-35.5) L 12/16/16 05:16 RDW 20.3 % (11.5-14.5) H 12/16/16 05:16 Neutrophils # 9.9 K/mcL (1.6-8.9) H 12/16/16 05:16 Nucleated RBCs/100 WBC 0.2 /100 WBC (0) H 12/10/16 07:38 PT 12.5 Seconds (9.4-12.1) H 12/13/16 12:20 Potassium 5.3 mEq/L (3.5-4.5) H 12/16/16 05:16 BUN 54 mg/dL (7-20) H 12/16/16 05:16 Creatinine 2.61 mg/dL (0.57-1.11) H 12/16/16 05:16 Est GFR ( Amer) 22 (> 60) L 12/16/16 05:16 Est GFR (Non-Af Amer) 18 (> 60) L 12/16/16 05:16 Glucose 167 mg/dL (70-99) H 12/16/16 05:16 POC Glucose 205 (58-89) H 12/15/16 20:18 Hemoglobin A1c 6.5 % (-5.6) H 12/04/16 11:54 Calculated Osmolality 303 (280-300) H 12/16/16 05:16 Iron 19 mcg/dL (50-170) L 12/05/16 12:45 % Saturation 7 % (15-50) L 12/05/16 12:45 AST 41 Units/L (5-34) H 12/16/16 05:16 Albumin 2.6 g/dL (3.5-5.0) L 12/16/16 05:16 Albumin (PEP) 3.17 g/dL (3.75-5.01) L 12/05/16 12:45 Albumin/Globulin Ratio 0.7 (1.1-2.2) L 12/16/16 05:16 Prealbumin 12.0 mg/dL (16.0-38.0) L 12/08/16 06:11 Speew-9-Oumomecnk 0.47 g/dL (0.19-0.46) H 12/05/16 12:45 25-OH Vitamin D Total 9 ng/mL (30-80) L 12/07/16 05:48 PTH Intact 365.6 pg/ml (8.5-72.5) H 12/05/16 12:45 Urine Clarity Cloudy (Clear) A 12/04/16 12:49 Urine Protein 100 mg/dL (Neg-Trace) H 12/04/16 12:49 Ur Squamous Epith Cells Many per lpf (None-Few) H 12/04/16 12:49 Protein/Creatinin Ratio 1.69 mg/mg (0-0.20) H 12/05/16 18:00 Urine Total Protein 183 mg/dL (1-14) H 12/05/16 18:00 Free [place] LC, Quant 9.49 mg/dL (0.33-1.94) H 12/05/16 12:45 Free Lambda LC, Quant 7.86 mg/dL (0.57-2.63) H 12/05/16 12:45 Consult Discharge Plan - Plan Referrals: Dima Juarez MD [Primary Care Provider] - 12/23/16 3:30 pm () Breanna Hernandez MD [Partnered Physician] - 12/17/16 2:45 pm Prescriptions: LORazepam [Ativan] 0.5 mg PO QID PRN #30 tablet PRN Reason: Anxiety
--- NOTE | 2016-12-16 11:47 | Nephrology Progress Note ---
Date of Encounter: 12/16/16 Time of Encounter: 11:10 - Assessment and Plan (1) Acute kidney injury superimposed on chronic kidney disease Status: Acute SCr slightly improved at 2.61, GFR 18, will monitor UOP documented at 300c, unclear if accurate Continue to avoid nephrotoxins if possible (2) Adenocarcinoma Status: Acute Not a surgical candiadte. Palliative/hospice care planned (3) Hyperkalemia Status: Acute Potassium remains elevated at 5.1 on aldactone, will decrease decrease aldactone dose Renal diet advised as well (4) Hepatic cirrhosis Status: Acute Continue diuresis with bumex and reduced aldactone for now Qualifiers: Hepatic cirrhosis type: unspecified hepatic cirrhosis Ascites presence: with ascites Qualified Code(s): K74.60 - Unspecified cirrhosis of liver (5) CKD (chronic kidney disease) stage 4, GFR 15-29 ml/min Status: Chronic GFR at baseline appears to be teens to 20s Subjective Principal diagnosis: NYDIA, CKD IV, Ascites, Edema, HTN Interval history: Pt seen and examined with family at bedside and sitting up in chair. She appears confused ad does not understand why " it is taking 14 days days to take care of her problems". Apparently not a surgical candidate with peritoneal catheter planned today Objective - Vital Signs Vital signs: Vital Signs Temp Pulse Resp BP Pulse Ox 12/16/16 10:38 98.3 F 56 16 167/59 95 12/16/16 08:36 98 F 60 18 168/65 97 12/16/16 04:40 98.5 F 60 18 153/54 97 12/15/16 23:15 98.6 F 72 18 178/71 98 12/15/16 19:43 98.6 F 64 20 134/67 97 12/15/16 15:23 98.0 F 63 16 136/77 98 Intake and Output 12/15/16 12/16/16 12/16/16 23:59 07:59 15:59 Intake Total 120 / 120 240 / 240 Output Total 700 / 700 Balance 120 / 120 -460 / -460 Intake: Oral 120 / 120 240 / 240 Output: Urine 700 / 700 Other: Meal Dinner NPO Percent of Meal Consumed 50% Weight 92.896 kg Blood Glucose* 205 144 Patient Weight 12/16/16 23:59 Weight 92.896 kg - General Appearance General appearance: Present: chronically ill (NAD) EENT: Present: ATNC, mucous membranes dry Neck: Present: no JVD, supple Additional Comments: good areation ant bilat Cardiology: Present: edema, normal S1, normal S2 Gastrointestinal: Present: no tenderness, no guarding, distended Integumentary: Present: warm and dry Neurologic: Present: disoriented Musculoskeletal: Present: no deformities Psychiatric: Present: mood/affect appropriate - Lab 12/17/16 06:20 12/17/16 06:20 Most recent lab results Calcium 10.4 mg/dL (8.6-10.8) 12/16/16 05:16 Phosphorus 3.2 mg/dL (2.3-4.7) 12/10/16 07:38 Urine Creatinine 108 mg/dL 12/05/16 18:00 Urine Total Protein 183 mg/dL (1-14) H 12/05/16 18:00 Consult Discharge Plan - Plan Referrals: Dima Juarez MD [Primary Care Provider] - 12/23/16 3:30 pm () Breanna Hernandez MD [Partnered Physician] - 12/17/16 2:45 pm Prescriptions: Aspirin 81 mg PO DAILY #30 tab.chew LORazepam [Ativan] 0.5 mg PO QID PRN #30 tablet PRN Reason: Anxiety
--- NOTE | 2016-12-16 12:40 | General Surgery Consult Note ---
Date of Encounter: 12/16/16 Time of Encounter: 12:30 Assessment and Plan (1) Adenocarcinoma of esophagus Current Visit: Yes Status: Acute The patient appears to have a clinically node negative T1 or T2 lesion of the distal esophagus. Because of the involvement of two thirds of the circumference of the esophagus, endoscopic resection is not an option. Unfortunately because of her ascites and cirrhosis and likely portal hypertension transhiatal esophagectomy will not be possible area is my opinion that in her current medical condition she would not survive transhiatal esophagectomy or I[place] Jcaobo resection. I would defer to the oncology service as to whether or not she is medically able to tolerate radiation chemotherapy. In my opinion she is too poor of a candidate for surgical resection secondary to medical comorbidity History of Present Illness Consult date: 12/16/16 Reason for consult: other (Adenocarcinoma of the gastroesophageal junction) Requesting physician: Maxwell De La Rosa History of present illness: The patient is a 76-year-old female in tremendously poor health with a personal history of coronary artery disease, congestive heart failure, cirrhosis, ascites. She now presents with gastroesophageal junction biopsy demonstrating adenocarcinoma. I personally reviewed the CAT scan of the abdomen. There is thickening of the distal esophagus but this is not a bulky tumor. I cannot detect any adenopathy in the lower mediastinum or celiac plexus. On history the patient is not having any dysphasia. She is not having any abdominal pain in the epigastrium. She does have generalized abdominal discomfort and tightness secondary to ascites. There is no guarding and no rebound. There are no peritoneal signs. She has morbid obesity and has not lost weight. Her physical endurance is very poor she is only able to take a few steps without developing shortness of breath. She now presents for evaluation of treatment of the distal esophageal cancer. Past Med Surg Social Fam HX - Past Medical History Medical history: arthritis, asthma, atrial fibrillation, CHF, COPD, coronary artery disease, DVT, dementia, diabetes, GERD, hyperlipidemia, hypertension, myocardial infarction, peripheral artery disease, pulmonary embolus, renal disease, thyroid disease, TIA, venous stasis, other Psychiatric history: anxiety, depression - Past Surgical History Surgical History: angioplasty/stent, cholecystectomy, hysterectomy, knee replacement, orthopedic, other, other - Social History Smoking Status: Current every day smoker Smokeless Tobacco Status: No Alcohol use: none Drug use: none - Family History Mother Family Member Ethnicity: Non- Living Status: Hx Family Cardiac Disorders: Yes Hx Family Respiratory Disorders: Yes Hx Family Cancer: Yes Hx Family GI Disorders: No Hx Family Endocrine Disorder: No Hx Family Neuromuscular Disorders: No Hx Family Neurologic Disorders: Yes Hx Family HEENT Disorders: No Hx Family Autoimmune Disorders: No Medications and Allergies Folic Acid 1 mg PO DAILY 15 Days 10/10/15 [Rx] Losartan [Cozaar] 50 mg PO DAILY tablet 10/10/15 [Rx] Levothyroxine [Synthroid] 75 mcg PO 0630 10/26/15 [History] Isosorbide MONOnitrate (24 HR) [Imdur] 60 mg PO DAILY tab.er.24h 10/30/15 [Rx] Metoprolol XL (24 HR) Succ [Toprol Xl] 25 mg PO DAILY tab.er.24h 10/30/15 [Rx] Amiodarone [Cordarone] 200 mg PO DAILY 11/19/16 [History] Digoxin [Lanoxin] 0.125 mg PO DAILY 11/19/16 [History] HYDROcodone/Acet 5/325 mg [Daisy 5-325 mg] 1 tab PO BID PRN 11/19/16 [History] Ropinirole [Requip] 1 mg PO HS 11/19/16 [History] TraZODone 50 - 100 mg PO HS 11/19/16 [History] Bumetanide [Bumetanide] 4 mg PO BID 12/04/16 [History] Duloxetine [Cymbalta] 30 mg PO DAILY 12/04/16 [History] Insulin Aspart Prot/Insuln Asp [Novolog Mix 70-30 Flexpen Syrn] 50 unit SQ BID 12/04/16 [History] LORazepam [Ativan] 0.5 mg PO QID PRN #30 tablet 12/16/16 [Rx] Allergies azithromycin [From Zithromax] Allergy (Verified 11/19/16 17:29) Rash furosemide [From Lasix] Adverse Reaction (Verified 11/19/16 17:29) Headache ketorolac [From Toradol] Adverse Reaction (Verified 11/19/16 17:29) Hypotension Review of Systems All systems PM: reviewed and no additional remarkable complaints except as stated All systems PM: A 10-system review of systems was performed and is negative for pertinent findings except as documented above in the HPI. General Surgery Exam Initial Vital Signs Temp Pulse Resp BP Pulse Ox 97.7 F 48 20 177/72 95 12/04/16 11:23 12/04/16 11:23 12/04/16 11:23 12/04/16 11:23 12/04/16 11:23 - General physical appearance well developed, moderate pain, obese - ENT normal pinna, normal nares, normal mucosa, no hearing loss, no congestion - Neck no masses, no bruits, trachea midline, no lymphadectomy, no venous distension - Respiratory crackles: bilateral - Cardiovascular Cardiovascular exam: Present: RRR, 15, 16 - Abdomen Abdomen general surgery: Present: tender Abdominal Tenderness: Present: diffusely (Mild tenderness. Because of her truncal obesity I am unable to identify an ascites wave) - Neurologic Present: CN 2-12 grossly intact, normal coordination, normal sensation - Psychiatric Psychiatric general surgery: Present: appropriate, oriented to person, oriented to place, oriented to time, speech is normal, memory intact - Additional Findings The patient is markedly deconditioned and unable to ambulate for more than a few steps. Exam Initial Vital Signs Temp Pulse Resp BP Pulse Ox 97.7 F 48 20 177/72 95 12/04/16 11:23 12/04/16 11:23 12/04/16 11:23 12/04/16 11:23 12/04/16 11:23 Results - Labs 12/16/16 05:16 12/16/16 05:16 Abnormal lab results WBC 12.7 K/mcL (4.3-11.1) H 12/16/16 05:16 Hgb 10.0 g/dL (11.5-15.4) L 12/16/16 05:16 Hct 32.8 % (35.3-44.9) L 12/16/16 05:16 MCV 78.8 fL (83.0-100.0) L 12/16/16 05:16 MCH 24.0 pg (28.0-33.3) L 12/16/16 05:16 MCHC 30.5 g/dL (31.6-35.5) L 12/16/16 05:16 RDW 20.3 % (11.5-14.5) H 12/16/16 05:16 Neutrophils # 9.9 K/mcL (1.6-8.9) H 12/16/16 05:16 Nucleated RBCs/100 WBC 0.2 /100 WBC (0) H 12/10/16 07:38 PT 12.5 Seconds (9.4-12.1) H 12/13/16 12:20 Potassium 5.3 mEq/L (3.5-4.5) H 12/16/16 05:16 BUN 54 mg/dL (7-20) H 12/16/16 05:16 Creatinine 2.61 mg/dL (0.57-1.11) H 12/16/16 05:16 Est GFR ( Amer) 22 (> 60) L 12/16/16 05:16 Est GFR (Non-Af Amer) 18 (> 60) L 12/16/16 05:16 Glucose 167 mg/dL (70-99) H 12/16/16 05:16 POC Glucose 205 (58-89) H 12/15/16 20:18 Hemoglobin A1c 6.5 % (-5.6) H 12/04/16 11:54 Calculated Osmolality 303 (280-300) H 12/16/16 05:16 Iron 19 mcg/dL (50-170) L 12/05/16 12:45 % Saturation 7 % (15-50) L 12/05/16 12:45 AST 41 Units/L (5-34) H 12/16/16 05:16 Albumin 2.6 g/dL (3.5-5.0) L 12/16/16 05:16 Albumin (PEP) 3.17 g/dL (3.75-5.01) L 12/05/16 12:45 Albumin/Globulin Ratio 0.7 (1.1-2.2) L 12/16/16 05:16 Prealbumin 12.0 mg/dL (16.0-38.0) L 12/08/16 06:11 Cwpcx-4-Mwmrijjsq 0.47 g/dL (0.19-0.46) H 12/05/16 12:45 25-OH Vitamin D Total 9 ng/mL (30-80) L 12/07/16 05:48 PTH Intact 365.6 pg/ml (8.5-72.5) H 12/05/16 12:45 Urine Clarity Cloudy (Clear) A 12/04/16 12:49 Urine Protein 100 mg/dL (Neg-Trace) H 12/04/16 12:49 Ur Squamous Epith Cells Many per lpf (None-Few) H 12/04/16 12:49 Protein/Creatinin Ratio 1.69 mg/mg (0-0.20) H 12/05/16 18:00 Urine Total Protein 183 mg/dL (1-14) H 12/05/16 18:00 Free [place] LC, Quant 9.49 mg/dL (0.33-1.94) H 12/05/16 12:45 Free [place]ambda LC, Quant 7.86 mg/dL (0.57-2.63) H 12/05/16 12:45 Diabetes panel 12/16/16 Range/Units 05:16 Sodium 137 (136-145) mEq/L Potassium 5.3 H (3.5-4.5) mEq/L Chloride 103 (98-109) mEq/L Carbon Dioxide 27 (19-29) mEq/L BUN 54 H (7-20) mg/dL Creatinine 2.61 H (0.57-1.11) mg/dL Glucose 167 H (70-99) mg/dL Calcium 10.4 (8.6-10.8) mg/dL AST 41 H (5-34) Units/L ALT 17 (0-55) Units/L Alkaline Phosphatase 112 (38-126) Units/L Albumin 2.6 L (3.5-5.0) g/dL Calcium panel 12/16/16 Range/Units 05:16 Calcium 10.4 (8.6-10.8) mg/dL Albumin 2.6 L (3.5-5.0) g/dL Pituitary panel 12/16/16 Range/Units 05:16 Sodium 137 (136-145) mEq/L Potassium 5.3 H (3.5-4.5) mEq/L Chloride 103 (98-109) mEq/L Carbon Dioxide 27 (19-29) mEq/L BUN 54 H (7-20) mg/dL Creatinine 2.61 H (0.57-1.11) mg/dL Glucose 167 H (70-99) mg/dL Calcium 10.4 (8.6-10.8) mg/dL Adrenal panel 12/16/16 Range/Units 05:16 Sodium 137 (136-145) mEq/L Potassium 5.3 H (3.5-4.5) mEq/L Chloride 103 (98-109) mEq/L Carbon Dioxide 27 (19-29) mEq/L BUN 54 H (7-20) mg/dL Creatinine 2.61 H (0.57-1.11) mg/dL Glucose 167 H (70-99) mg/dL Calcium 10.4 (8.6-10.8) mg/dL Total Bilirubin 0.5 (0.2-1.2) mg/dL AST 41 H (5-34) Units/L ALT 17 (0-55) Units/L Alkaline Phosphatase 112 (38-126) Units/L Albumin 2.6 L (3.5-5.0) g/dL All other labs normal. Consult Discharge Plan - Plan Referrals: Dima Juarez MD [Primary Care Provider] - 12/23/16 3:30 pm () Breanna Hernandez MD [Partnered Physician] - 12/17/16 2:45 pm Prescriptions: LORazepam [Ativan] 0.5 mg PO QID PRN #30 tablet PRN Reason: Anxiety
[2016-12-16] MEDS ORDERED: Heparin 1,000 UNITS/500 mL NS 500 ML ONE (14:10)
--- NOTE | 2016-12-16 14:27 | Discharge Summary ---
Date of Encounter: 12/16/16 Time of Encounter: 14:23 - Discharge Diagnosis (1) Adenocarcinoma of esophagus Priority: Primary Status: Acute (2) Cellulitis Priority: Secondary Status: Acute Qualifiers: Site of cellulitis: extremity Site of cellulitis of extremity: lower extremity Laterality: right Qualified Code(s): L03.115 - Cellulitis of right lower limb (3) Ascites Priority: Primary Status: Acute Qualifiers: Ascites type: other type Qualified Code(s): R18.8 - Other ascites (4) Bradycardia Priority: Secondary Status: Acute (5) CKD (chronic kidney disease) Priority: Secondary Status: Acute Qualifiers: Chronic kidney disease stage: stage 4 (severe) Qualified Code(s): N18.4 - Chronic kidney disease, stage 4 (severe) (6) HTN (hypertension) Priority: Secondary Status: Acute Qualifiers: Hypertension type: essential hypertension Qualified Code(s): I10 - Essential (primary) hypertension (7) DVT prophylaxis Priority: Secondary Status: Acute - Discharge Medications Prescriptions: Aspirin 81 mg PO DAILY #30 tab.chew LORazepam [Ativan] 0.5 mg PO QID PRN #30 tablet PRN Reason: Anxiety Home Medications: Folic Acid 1 mg PO DAILY 15 Days 10/10/15 [Rx] Losartan [Cozaar] 50 mg PO DAILY tablet 10/10/15 [Rx] Levothyroxine [Synthroid] 75 mcg PO 0630 10/26/15 [History] Isosorbide MONOnitrate (24 HR) [Imdur] 60 mg PO DAILY tab.er.24h 10/30/15 [Rx] Metoprolol XL (24 HR) Succ [Toprol Xl] 25 mg PO DAILY tab.er.24h 10/30/15 [Rx] Amiodarone [Cordarone] 200 mg PO DAILY 11/19/16 [History] Digoxin [Lanoxin] 0.125 mg PO DAILY 11/19/16 [History] HYDROcodone/Acet 5/325 mg [[place] 5-325 mg] 1 tab PO BID PRN 11/19/16 [History] Ropinirole [Requip] 1 mg PO HS 11/19/16 [History] TraZODone 50 - 100 mg PO HS 11/19/16 [History] Bumetanide 4 mg PO BID 12/04/16 [History] Duloxetine [Cymbalta] 30 mg PO DAILY 12/04/16 [History] Insulin Aspart Prot/Insuln Asp [Novolog Mix 70-30 Flexpen Syrn] 50 unit SQ BID 12/04/16 [History] Aspirin 81 mg PO DAILY #30 tab.chew 12/16/16 [Rx] LORazepam [Ativan] 0.5 mg PO QID PRN #30 tablet 12/16/16 [Rx] Allergies/Adverse Reactions: Allergies azithromycin [From Zithromax] Allergy (Verified 11/19/16 17:29) Rash furosemide [From Lasix] Adverse Reaction (Verified 11/19/16 17:29) Headache ketorolac [From Toradol] Adverse Reaction (Verified 11/19/16 17:29) Hypotension Procedures/tests Complete & Pending: Procedures Performed prior 72 hours Category Date Time Status IR insert yariel ip cath perc [IR] Routine Exams 12/16/16 Ordered IR us guide needle place [IR] Routine IR 12/16/16 Ordered Date of admission: 12/06/16 22:16 Primary care physician: Dima Juarez MD Consults: 12/10/16 08:00 Consult to Interventional Radiology [CONS] Routine Consulting Provider: Radiology [facility]ventional [facility] Reason for Consult: Patient going home with [facility] hospice care. 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 Call Completed: Yes Discharging clinician: Maxwell De La Rosa - Patient Status Disposition: Hospice - Home Condition: Critical Functional capacity at discharge: bed bound Overall status at discharge: patient is not back to baseline - Discharge Instructions Follow Up With: Dima Juarez MD [Primary Care Provider] - 12/23/16 3:30 pm () Breanna Hernandez MD [Partnered Physician] - 12/17/16 2:45 pm Forms: ED Satisfaction Letter - Diet and Activity Activity: increase activity as tolerated Diet: diabetic diet Interval History: Ms. Jeong is a 76 year old female with history of cirrhosis, ascites, CHF , [id number], BELL, COPD, CKD stage III, CAD, DM, cardiomyopathy, and HTN. Pt c/o dyspnea x 3 weeks, has been increasing over the last 4-5 days. Family states that pt has been confused and having hallucinations this week. She was seen by Dr. Roper 2 days ago and was told at that time to come to the ED for diuresis, but pt states that she was too busy and had things to do at home. Pt states that she feels "terrible" and has serge 7/10 leg pain. Denies chest pain but c/o SOB from fluid overload. Pt also has a 2 week old wound to R dempsey from a cardboard box that is red, warm, painful, and drains serous fluid. Pt also is a pt of Dr. Hernandez and is to have a paracentesis tomorrow in the office. Hospital course: Patient was hospitalized. Noted that patient had a stool guaiac positive. Patient underwent EGD. It was noted that patient had a mass at the lower one third of the gastroesophageal junction. Biopsy of the mass revealed adenocarcinoma. Oncology was consulted. Oncology recommended surgical evaluation. Surgery evaluated this patient. As per surgery this patient is not a candidate for surgery in view of the multiple comorbid status. During her hospitalization at one time stroke alert was called but it turned out to be a false alarm. Family made with the palliative care team. Family decided to go with the home hospice. Patient will be going home today and then she will be on [facility] hospice. Patient niece is the main spokesperson and she agreed with the plan. Patient will be getting Pleurx catheter in her abdomen. Patient's family member can help to drain the ascites. Patient will be a hospice candidate. All prescriptions are prescribed by the palliative care team. - Time Spent with Patient Total time spent providing and/or coordinating discharge services: - Constitutional Vitals: Temp Pulse Resp BP Pulse Ox 98.3 F 56 16 167/59 95 03/13/17 10:38 12/16/16 10:38 12/16/16 10:38 12/16/16 10:38 12/16/16 10:38 General appearance: Present: A&O X 3, pleasant, answers questions appropriately - Head Head exam: Present: atraumatic, normocephalic - Eye Eye exam: Present: PERRL, conjuntiva pink, sclera anicteric Pupils: Present: PERRL - Neck Neck exam general surgery: Present: supple, trachea midline. Absent: lymphadenopathy - Respiratory Respiratory exam: Present: CTAB. Absent: accessory muscle use, rales, rhonchi, wheezes - Cardiovascular Cardiovascular exam: Present: RRR, +S1, +S2. Absent: diastolic murmur, gallop, rubs, systolic murmur - GI/Abdominal GI/Abdominal exam: Present: normal bowel sounds, soft, no peritoneal signs. Absent: distended, tenderness - Extremities Exam Extremities exam: Present: warm, radial pulses palpable and symetrical. Absent : calf tenderness, cyanotic, pedal edema - Neurological Exam Neurological exam: Present: CN II-XII intact, oriented X3, no focal deficits. Absent: pronater drift, facial droop, speech deficit - Skin Skin exam: Present: dry, intact
--- NOTE | 2016-12-16 15:19 | IR Procedure Note ---
Date of procedure: 12/16/16 Consent Obtained: Written consent Timeout: Correct patient and procedure verified, Correct site verified, Time out performed, Skin prep completed Indications: Ascites Procedure Performed: Pleurx catheter Site/Technique: left abdomen Results/Findings: successful placement Estimated blood loss (cc): 2 Complications: None; Tolerated procedure well Post Procedure Treatment Plan: OK to use
[2016-12-16] MEDS ORDERED: *HR* Morphine 2 MG/ML SYRINGE IVP ONE (18:22)
[2016-12-16] MEDS: rOPINIRole 1 MG TABLET PO SCH (21:27)
[2016-12-16] MEDS: traZODone 50 MG TABLET PO SCH (21:27)
[2016-12-17] MEDS: *HR* Heparin 5,000 UNIT/ML VIAL SQ SCH (06:38)
[2016-12-17] MEDS: *HR* HYDROcodone/Acet 5/325 mg TABLET PO PRN (06:39)
[2016-12-17 06:51] LABS: Basophils # 0.1 K/mcL (0.0-0.2); Basophils % 0.5 %; Eosinophils # 0.5 K/mcL (0.0-0.6); Hematocrit 39.8 % (35.3-44.9); Immature Granulocytes % 0.7 % (0-4); Lymphocytes # 1.7 K/mcL (0.6-4.6); Lymphocytes % 11.4 %; Mean Corpuscular HGB Conc 29.4 g/dL (31.6-35.5); Mean Corpuscular Hemoglobin 23.9 pg (28.0-33.3); Mean Corpuscular Volume 81.4 fL (83.0-100.0); Mean Platelet Volume 10.8 fL (9.4-12.4); Monocytes # 1.1 K/mcL (0.0-1.3); Neutrophils # 11.6 K/mcL (1.6-8.9); Platelet Count 335 K/mcL (140-400); Red Blood Count 4.89 M/mcL (3.82-4.97); Red Cell Distribution Width 21.2 % (11.5-14.5); Segmented Neutrophils % 77.4 %
[2016-12-17 06:57] LABS: Hemoglobin 11.7 g/dL (11.5-15.4)
[2016-12-17 07:03] LABS: Albumin 2.6 g/dL (3.5-5.0); Albumin/Globulin Ratio 0.7 (1.1-2.2); Bilirubin,Total 0.7 mg/dL (0.2-1.2); Calcium 9.9 mg/dL (8.6-10.8); Globulin 3.7 g/dL (2.4-3.5); Potassium 5.7 mEq/L (3.5-4.5); Total Protein 6.3 g/dL (6.0-8.3)
[2016-12-17 07:40] VITALS: BP 128/54
[2016-12-17] MEDS: Spironolactone 25 MG TABLET PO SCH (08:49)
[2016-12-17] MEDS: Aspirin 81 MG TAB.CHEW PO SCH (08:49)
[2016-12-17] MEDS: Isosorbide MONOnitrate (24 HR) 60 MG TAB.ER.24H PO SCH (08:50)
[2016-12-17] MEDS: *HR* Amiodarone 200 MG TABLET PO SCH (08:50)
[2016-12-17] MEDS: Folic Acid 1 MG TABLET PO SCH (08:50)
[2016-12-17] MEDS: Metoprolol XL (24 HR) Succ 25 MG TAB.ER.24H PO SCH (08:50)
[2016-12-17] MEDS: Nicotine 21 MG PATCH.TD24 TD SCH (08:51)
[2016-12-17] MEDS: Bumetanide 1 MG/4 ML VIAL IVP SCH (08:51)
[2016-12-17] MEDS: Insulin LISPRO 300 UNITS/3 ML VIAL SQ SCH (08:52)
[2016-12-17] MEDS: Insulin DETEMIR 100 UNIT/ML X5UNITS SQ SCH (08:52)
[2016-12-17] MEDS: Cetaphil Lotion 473 ML BOTTLE TP SCH (08:52)
--- NOTE | 2016-12-17 09:16 | Physician Discharge Referral ---
Home Health/Hosp Referral Info Transfer to: Hospice Provider in Charge Post Discharge: PCP - Diagnosis (1) Hepatic cirrhosis Status: Acute (2) Ascites Status: Acute (3) Acute kidney injury superimposed on chronic kidney disease Status: Acute (4) Adenocarcinoma of esophagus Status: Acute - Respiratory Orders Smoking Cessation: Smoking cessation has been advised. For more information, call the [place] Tobacco Quit Line at 9-790-DNGU-NOW. - Diet/Nutrition Diet/Nutrition Orders: No Added Salt (RUSS), No Concentrated Sweets - Activity Activity Orders: Up ad [place] - Services Needed Following services are medically necessary services: Nursing, Home Health Aide Other Treatments: Pleurx catheter management - may drain for pt comfort three times a week and PRN for discomfort or distention. May drain 1 Liter of fluid at a time. - Transfer Medications Prescriptions: Aspirin 81 mg PO DAILY #30 tab.chew LORazepam [Ativan] 0.5 mg PO QID PRN #30 tablet PRN Reason: Anxiety Home Medications: Folic Acid 1 mg PO DAILY 15 Days 10/10/15 [Rx] Losartan [Cozaar] 50 mg PO DAILY tablet 10/10/15 [Rx] Levothyroxine [Synthroid] 75 mcg PO 0630 10/26/15 [History] Isosorbide MONOnitrate (24 HR) [Imdur] 60 mg PO DAILY tab.er.24h 10/30/15 [Rx] Metoprolol XL (24 HR) Succ [Toprol Xl] 25 mg PO DAILY tab.er.24h 10/30/15 [Rx] Amiodarone [Cordarone] 200 mg PO DAILY 11/19/16 [History] Digoxin [Lanoxin] 0.125 mg PO DAILY 11/19/16 [History] HYDROcodone/Acet 5/325 mg [[place] 5-325 mg] 1 tab PO BID PRN 11/19/16 [History] Ropinirole [Requip] 1 mg PO HS 11/19/16 [History] TraZODone 50 - 100 mg PO HS 11/19/16 [History] Bumetanide 4 mg PO BID 12/04/16 [History] Duloxetine [Cymbalta] 30 mg PO DAILY 12/04/16 [History] Insulin Aspart Prot/Insuln Asp [Novolog Mix 70-30 Flexpen Syrn] 50 unit SQ BID 12/04/16 [History] Aspirin 81 mg PO DAILY #30 tab.chew 12/16/16 [Rx] LORazepam [Ativan] 0.5 mg PO QID PRN #30 tablet 12/16/16 [Rx] Allergies/Adverse Reactions: Allergies azithromycin [From Zithromax] Allergy (Verified 11/19/16 17:29) Rash furosemide [From Lasix] Adverse Reaction (Verified 11/19/16 17:29) Headache ketorolac [From Toradol] Adverse Reaction (Verified 11/19/16 17:29) Hypotension Certification: Further, I certify that my clinical findings support that this patient is homebound (i.e. absences from home require considerable and taxing effort and are for medical reasons or quaker services or infrequently or short duration when for other reasons) because: Homebound Reason: Patient requires assistance of a person or device to safely leave home Attestation: My signature below is to certify that this patient is under my care and that I, or nurse practitioner, or a physician's autopsy assistant working with me, has a face-to -face encounter with this patient.
--- NOTE | 2016-12-17 09:59 | Event Note ---
Date of Encounter: 12/17/16 Time of Encounter: 09:00 Patient up in chair, denies complaints. Anxious to go home. Pleurx cath in place. Referral has been called to [facility] hospice and they will admit pt today after discharge.
[2016-12-17] MEDS ORDERED: Spironolactone 25 MG TABLET PO SCH (11:41)
--- NOTE | 2016-12-17 11:44 | Nephrology Progress Note ---
Date of Encounter: 12/17/16 Time of Encounter: 11:40 - Assessment and Plan (1) Acute kidney injury superimposed on chronic kidney disease Status: Acute SCr fluctuating at 2.73, GFR 17. No indication for RECORD SEARCHER at this time. UOP noted at 700cc in the past 24hrs Continue to avoid nephrotoxins if possible (2) Adenocarcinoma Status: Acute now with hospice care (3) Hyperkalemia Status: Acute Potassium noted worse at 5.7, will decrease aldactone from 50mg to 25mg daily Continue renal diet (4) Hepatic cirrhosis Status: Acute Continue diuresis with bumex and aldcatone May add albumin prn especially when the next paracentesis planned Qualifiers: Hepatic cirrhosis type: unspecified hepatic cirrhosis Ascites presence: with ascites Qualified Code(s): K74.60 - Unspecified cirrhosis of liver (5) CKD (chronic kidney disease) stage 4, GFR 15-29 ml/min Status: Chronic GFR at baseline appears to be teens to 20s Subjective Principal diagnosis: NYDIA, CKD IV, Ascites, Edema, HTN Interval history: Pt seen and examined with niece at bedside. s/p catheter placed yesterday for recurrent ascites. Pt is eager to go home, now with hospice care. Objective - Vital Signs Vital signs: Vital Signs Temp Pulse Resp BP Pulse Ox 12/17/16 07:39 98.2 F 53 20 128/54 97 12/17/16 04:00 98.4 F 53 14 143/55 97 12/16/16 23:50 98.4 F 55 14 160/60 98 12/16/16 20:46 98.0 F 62 16 146/55 96 12/16/16 16:13 97.6 F 64 16 147/59 94 L Intake and Output 12/16/16 12/17/16 12/17/16 23:59 07:59 15:59 Output Total 300 / 300 Balance -300 / -300 Output: Urine 300 / 300 Other: Meal Breakfast Percent of Meal Consumed 100% # Voids 2 Weight 92.3 kg Blood Glucose* 292 192 Patient Weight 12/17/16 23:59 Weight 92.3 kg - General Appearance General appearance: Present: chronically ill (NAD) EENT: Present: ATNC, mucous membranes dry Neck: Present: no JVD, supple Additional Comments: good areation ant bilat Cardiology: Present: edema, normal S1, normal S2 Gastrointestinal: Present: no tenderness, no guarding, distended Integumentary: Present: warm and dry Neurologic: Present: disoriented Musculoskeletal: Present: no deformities Psychiatric: Present: mood/affect appropriate - Lab 12/17/16 06:20 12/17/16 06:20 Most recent lab results Calcium 9.9 mg/dL (8.6-10.8) 12/17/16 06:20 Phosphorus 3.2 mg/dL (2.3-4.7) 12/10/16 07:38 Urine Creatinine 108 mg/dL 12/05/16 18:00 Urine Total Protein 183 mg/dL (1-14) H 12/05/16 18:00 Consult Discharge Plan - Plan Referrals: Dima Juarez MD [Primary Care Provider] - 12/23/16 3:30 pm () Breanna Hernandez MD [Partnered Physician] - 12/17/16 2:45 pm Prescriptions: Aspirin 81 mg PO DAILY #30 tab.chew LORazepam [Ativan] 0.5 mg PO QID PRN #30 tablet PRN Reason: Anxiety
--- NOTE | 2016-12-17 19:00 | Event Note ---
Date of Encounter: 12/17/16 Time of Encounter: 09:40 Ms. Jeong was seen briefly this AM prior to discharge. She had been discharged yesterday but needed monitoring overnight. She feels well at this time and is ready to leave. Exam Alert. comfortable Pleasant Edema present I/P 1. Ascites s/p catheter placement 2. Esophageal carcinoma 3. Cellulitis RLE D/C today with hospice at home.
== END 2016-12-17 11:54 | disposition hospice, home (50) | DRG 374 ==
LOC: EMEROO 11:12 → 2ANU 11:12 → SUATTDRO 12-06 22:16
PROVIDERS: ADMIT Internal Medicine; ATTEND Internal Medicine
PROC: ENDOEBX (2016-12-09 17:00)